=== PATIENT | female | born 1960 | race African-American/Black ===

== ENCOUNTER 2021-05-21 00:28 | Emergency (ER) | payer OTHER, MEDICAID ==
[~2021-05-21] VITALS: Ht 167.6 cm; Wt 89.8 kg
[2021-05-21 05:21] VITALS: BP 146/99
[2021-05-21] MEDS ORDERED: BENZOCAINE (DENTAL) 20 % SPRAY 60ML MT ONE ×2 (05:45→06:15)
[2021-05-21] MEDS ORDERED: HYDROcodone-ACET 5/325MG TAB PO ONE (05:45)
[2021-05-21] MEDS ORDERED: CLINDAMYCIN HCL 150 MG CAP PO ONE (06:00)
== END 2021-05-21 06:40 | disposition home or self-care (01) ==
LOC: EDBD 00:28 → ER 00:30
DX: K04.7 Periapical abscess without sinus (principal); E11.9 Type 2 diabetes mellitus without complications; I10 Essential (primary) hypertension; Z90.49 Acquired absence of other specified parts of digestive tract; Z88.0 Allergy status to penicillin; Z88.2 Allergy status to sulfonamides

== ENCOUNTER 2021-09-30 22:54 | Emergency (ER) | payer OTHER, MEDICAID ==
[~2021-09-30] VITALS: Ht 170.2 cm; Wt 86.2 kg
[2021-09-30 23:59] VITALS: BP 144/97
[2021-10-01] MEDS ORDERED: KETOROLAC TROMETH 30 MG/ML 1ML VIAL IM ONE (00:15)
[2021-10-01] MEDS ORDERED: ACETAMINOPHEN 325 MG TAB PO ONE (00:15)
[2021-10-01] MEDS ORDERED: ACET325T82 PO ×2 (00:48→01:02)
== END 2021-10-01 01:19 | disposition home or self-care (01) ==
LOC: ER 22:54 → EDBD 22:54 → ER 10-01 01:19
DX: S86.911A Strain of unspecified muscle(s) and tendon(s) at lower leg level, right leg, initial encounter (principal); I10 Essential (primary) hypertension; E11.9 Type 2 diabetes mellitus without complications; Z90.49 Acquired absence of other specified parts of digestive tract; Z79.899 Other long term (current) drug therapy; Z88.0 Allergy status to penicillin; Z88.2 Allergy status to sulfonamides; Z88.8 Allergy status to other drugs, medicaments and biological substances; Z91.013 Allergy to seafood; W18.39XA Other fall on same level, initial encounter; Y93.89 Activity, other specified; Y92.89 Other specified places as the place of occurrence of the external cause; Y99.8 Other external cause status
CPT/HCPCS: 73564; 96372; 99283; J1885

== ENCOUNTER 2022-03-15 14:17 | Emergency (ER) | payer OTHER, MEDICAID ==
[~2022-03-15] VITALS: Ht 167.6 cm; Wt 88.0 kg
[~2022-03-15 14:17] MED LIST: ACET325T82 PO
[2022-03-15] MEDS ORDERED: IOHEXOL 300 MG/ML 100ML BOTTLE IJ ONE (16:34)
[2022-03-15 18:19] LABS: Basophils # (auto) 0.1 10 ^3/uL (0-0.2); Monocytes # (auto) 0.5 10 ^3/uL (0-1.3); Nucleated Red Blood Cells % 0.1 %
[2022-03-15 18:21] LABS: Basophils % (auto) 1.6 % (0.0-2.0); Eosinophils # (auto) 0.1 10 ^3/uL (0-0.8); Eosinophils % (auto) 2.7 % (0.0-7.0); Hematocrit 35.8 % (36.0-46.0); Hemoglobin 11.8 g/dL (12.2-16.2); Lymphocytes % (auto) 19.4 % (10.0-50.0); Mean Corpuscular Hemoglobin 25.6 pg (28.0-32.0); Mean Corpuscular Volume 77.3 fL (80.0-100.0); Monocytes % (auto) 10.6 % (0.0-12.0); Neutrophils # (auto) 3.3 10 ^3/uL (1.6-8.6); Neutrophils % (auto) 65.7 % (37.0-80.0); Red Blood Cells 4.63 10^6/uL (4.0-5.20); Red Cell Distribution Width 15.2 % (11.8-14.3)
[2022-03-15 18:28] LABS: Albumin 3.3 g/dL (3.4-5.0); Calcium 8.5 mg/dL (8.5-10.1); Potassium 4.3 mmol/L (3.5-5.1)
[2022-03-15 18:31] LABS: Bilirubin, Total 0.4 mg/dL (0.2-1.0); Total Protein 6.4 g/dL (6.4-8.2)
[2022-03-15 18:39] LABS: Urine Bacteria FEW /hpf (None Seen); Urine Blood Negative /uL (Negative); Urine Specific Gravity 1.018 (1.001-1.035); Urine WBC 11 /hpf (0 - 5)
[2022-03-15] MEDS ORDERED: FLUCONAZOLE 100 MG TAB PO ONE (20:15)
[2022-03-15] MEDS ORDERED: CEPH-322 PO (21:27)
[2022-03-15 21:55] VITALS: BP 165/96
== END 2022-03-16 00:01 | disposition home or self-care (01) ==
LOC: ER 14:17
DX: N39.0 Urinary tract infection, site not specified (principal); B37.9 Candidiasis, unspecified; I10 Essential (primary) hypertension; E11.9 Type 2 diabetes mellitus without complications; J44.9 Chronic obstructive pulmonary disease, unspecified; Z90.49 Acquired absence of other specified parts of digestive tract; Z79.899 Other long term (current) drug therapy; Z88.0 Allergy status to penicillin; Z88.2 Allergy status to sulfonamides; Z88.8 Allergy status to other drugs, medicaments and biological substances
CPT/HCPCS: 36415; 71045; 74176; 80053; 81001; 84484; 85025; 93005

== ENCOUNTER 2022-03-18 22:07 | Emergency (ER) | payer OTHER, MEDICAID ==
[~2022-03-18] VITALS: Ht 167.6 cm; Wt 88.0 kg
[~2022-03-18 22:07] MED LIST changes: +CEPH-322 PO
[2022-03-18 22:16] VITALS: BP 120/97
== END 2022-03-19 03:37 | disposition left against medical advice (07) ==
LOC: ER 22:12
DX: R05.9 Cough, unspecified (principal); R50.9 Fever, unspecified; Z53.21 Procedure and treatment not carried out due to patient leaving prior to being seen by health care provider

== ENCOUNTER 2024-06-30 10:56 | Emergency (ER) | payer OTHER, MEDICAID ==
[~2024-06-30] VITALS: Ht 167.6 cm; Wt 74.5 kg
[~2024-06-30 10:56] MED LIST changes: -CEPH-322 PO; +CEPH250C PO
[2024-06-30] MEDS: IPRATROPIUM BROM 0.5 MG/2.5ML INH SOL NEB ONE (11:17)
[2024-06-30] MEDS: ALBUTEROL SULF 2.5 MG/0.5ML(0.5%) NEB SOLN NEB ONE (11:18)
[2024-06-30] MEDS: methylPREDNISolone SOD SUCC 125 MG/2 ML VL IV ONE (11:57)
[2024-06-30 12:02] LABS: Basophils # (auto) 0 10 ^3/uL (0-0.2); Basophils % (auto) 0.3 % (0.0-2.0); Eosinophils # (auto) 0.1 10 ^3/uL (0-0.8); Eosinophils % (auto) 3.1 % (0.0-7.0); Hematocrit 36.2 % (36.0-46.0); Hemoglobin 11.8 g/dL (12.2-16.2); Lymphocytes # (auto) 1.3 10 ^3/uL (0.4-5.4); Mean Corpuscular Hemoglobin 25.6 pg (28.0-32.0); Mean Corpuscular Hgb Conc. 32.7 g/dL (32.0-36.0); Mean Corpuscular Volume 78.2 fL (80.0-100.0); Monocytes # (auto) 0.2 10 ^3/uL (0-1.3); Monocytes % (auto) 4.9 % (0.0-12.0); Neutrophils # (auto) 2.6 10 ^3/uL (1.6-8.6); Neutrophils % (auto) 60.7 % (37.0-80.0); Platelet Count (auto) 346 10^3/uL (140-450); Red Blood Cells 4.62 10^6/uL (4.0-5.20); Red Cell Distribution Width 16.9 % (11.8-14.3); White Blood Cell 4.3 10^3/uL (4.4-10.8)
[2024-06-30 12:10] VITALS: O2SAT 99
[2024-06-30 12:28] LABS: Alanine Aminotransferase 59 U/L (7-40); Alkaline Phosphatase 109 U/L (46-116); Anion Gap 8 (5-15); Aspartate Aminotransferase 44 U/L (13-40); Bilirubin, Total 0.3 mg/dL (0.2-1.0); Blood Urea Nitrogen 12 mg/dL (9-23); Calcium 9.3 mg/dL (8.7-10.4); Carbon Dioxide 25 mmol/L (20-30); Chloride 108 mmol/L (98-107); Glucose 189 mg/dL (74-106); Potassium 3.2 mmol/L (3.5-5.1); Sodium 141 mmol/L (136-145); Total Protein 6.8 g/dL (5.7-8.2)
[2024-06-30] MEDS ORDERED: AZIT500T PO (15:42)
[2024-06-30] MEDS ORDERED: ALBUAER3 IN (15:42)
[2024-06-30] MEDS ORDERED: METH4PAK PO (15:42)
[2024-06-30] MEDS: AZITHROMYCIN 500MG/ 250ML 250 ML IV ONE (15:45)
[2024-06-30 19:45] VITALS: BP 150/93; PULSE 107; RESP 18; TEMP 98.6; O2SAT 94
== END 2024-06-30 19:56 | disposition home or self-care (01) ==
LOC: ER 10:56 → EDBD 10:56 → ER 19:45
DX: J44.1 Chronic obstructive pulmonary disease with (acute) exacerbation (principal); I11.0 Hypertensive heart disease with heart failure; I50.9 Heart failure, unspecified; I25.2 Old myocardial infarction; Z72.0 Tobacco use; Z98.890 Other specified postprocedural states; Z79.899 Other long term (current) drug therapy; Z88.0 Allergy status to penicillin; Z88.8 Allergy status to other drugs, medicaments and biological substances
CPT/HCPCS: 36415; 71045; 80053; 83880; 84484; 85025; 93005; 94640; 96365; 96366; 96375; 99285; J0456; J2919

== ENCOUNTER 2024-12-01 21:53 | Emergency (ER) | payer MEDICAID, OTHER ==
[~2024-12-01] VITALS: Ht 167.6 cm; Wt 82.0 kg
[~2024-12-01 21:53] MED LIST changes: +ALBUAER3 IN; +AZIT500T PO; +METH4PAK PO
[2024-12-01 22:56] LABS: Basophils # (auto) 0.1 10 ^3/uL (0-0.2); Basophils % (auto) 1.1 % (0.0-2.0); Eosinophils # (auto) 0.1 10 ^3/uL (0-0.8); Eosinophils % (auto) 1.5 % (0.0-7.0); Hematocrit 36.4 % (36.0-46.0); Hemoglobin 11.4 g/dL (12.2-16.2); Lymphocytes # (auto) 1.5 10 ^3/uL (0.4-5.4); Lymphocytes % (auto) 25.6 % (10.0-50.0); Mean Corpuscular Hemoglobin 23.2 pg (28.0-32.0); Mean Corpuscular Hgb Conc. 31.3 g/dL (32.0-36.0); Mean Corpuscular Volume 74.1 fL (80.0-100.0); Monocytes # (auto) 0.5 10 ^3/uL (0-1.3); Monocytes % (auto) 8.3 % (0.0-12.0); Neutrophils # (auto) 3.6 10 ^3/uL (1.6-8.6); Neutrophils % (auto) 63.5 % (37.0-80.0); Nucleated Red Blood Cells % 0.1 %; Platelet Count (auto) 341 10^3/uL (140-450); Red Blood Cells 4.91 10^6/uL (4.0-5.20); Red Cell Distribution Width 17.9 % (11.8-14.3); White Blood Cell 5.7 10^3/uL (4.4-10.8)
[2024-12-01 23:15] LABS: Alanine Aminotransferase 28 U/L (7-40); Albumin 4.4 g/dL (3.2-4.8); Anion Gap 6 (5-15); Aspartate Aminotransferase 31 U/L (13-40); BUN/Creatinine Ratio 10.9 (10.0-20.0); Bilirubin, Total 0.4 mg/dL (0.2-1.0); Blood Urea Nitrogen 10 mg/dL (9-23); Calcium 9.9 mg/dL (8.7-10.4); Carbon Dioxide 27 mmol/L (20-31); Glucose 94 mg/dL (74-106); Lipase 41 U/L (12-53); Potassium 3.9 mmol/L (3.5-5.1); Sodium 141 mmol/L (136-145)
[2024-12-01 23:17] LABS: Alkaline Phosphatase 120 U/L (46-116); Chloride 108 mmol/L (98-107)
--- NOTE | 2024-12-01 23:48 | ED.PDOC ---
History of Present Illness HPI Comments 64 y/o F with history of asthma, COPD, DM, HTN, cholecystectomy, , hernia repair, gastric bypass, and IVC filter brought in by family complaining of right upper quadrant pain radiating to the right shoulder, associated with nausea and constipation. Patient states her last bowel movement was 3 days ago. She denies any vomiting, fever or dysuria, however does note urinary frequency. Chief Complaint: Abdominal Pain Time Seen by MD: 22:25 Primary Care Provider: Justino Reviewed Notes: Nurses Notes, Medications, Allergies Allergies: Coded Allergies: Iodine (Verified Allergy, Unknown, 05/21/21) Metformin (Verified Allergy, Unknown, 05/21/21) Penicillins (Verified Allergy, Unknown, 05/21/21) Sulfa Antibiotics (Verified Allergy, Unknown, 05/21/21) Uncoded Allergies: SEAFOOD (Allergy, Unknown, 05/21/21) Home Meds Active Scripts Magnesium Citrate (MAGNESIUM CITRATE) 100 Mg Tab, 2-4 TAB OR HS PRN, #30 TAB prn constipation Prov:OLINDA READ MD 12/02/24 Ondansetron Odt 4MG Tab (ZOFRAN PO) 4 Mg Tb, 4 MG PO Q8HP PRN, #30 TAB prn n/v ODT TAB-DISSOLVE IN MOUTH, THEN SWALLOW Prov:OLINDA READ MD 12/02/24 Dicyclomine Hcl (BENTYL CAPSULE) 10 Mg Cp, 2 CAP PO Q6HP PRN, #30 CAP 11 Refills prn abdominal pain Prov:OLINDA READ MD 12/02/24 Albuterol Sulfate (VENTOLIN MDI) 90 Mcg Ih, 90 MCG IN Q4HP PRN for 30 Days, #1 INH Prov:MICHEL ADAM MD 06/30/24 Methylprednisolone (Medrol Dosepak) 4 Mg Sathya, 4 MG PO UD, #21 TAB UAD Prov:MICHEL ADAM MD 06/30/24 Azithromycin (Zithromax) 500 Mg Tab, 500 MG PO DAILY for 7 Days, #7 TAB Prov:MICHEL ADAM MD 06/30/24 Cephalexin (KEFLEX CAPSULE) 250 Mg Cp, 250 MG PO TID for 5 Days, #15 TAB Prov:DANE DUMONT MD 03/15/22 Acetaminophen (Apap) 325 Mg Tab, 500 MG PO Q4HP PRN for 10 Days, #60 TAB 0 Refills Prov:LEONARD WRIGHT 10/01/21 Information Source: Patient Mode of Arrival: Wheelchair Severity: Moderate Timing: Hours Duration: Since onset Prehospital treatment: None Past Medical History PAST MEDICAL HISTORY: Asthma, COPD, Depression, DM, HTN Past Medical History (Other): lymphedema to right-leg, bipolar disorder Surgical History: Cholecystectomy, , Hernia Repair Surgical History (Other): gastric bypass, IVC abdomen filter GIS PROGRAMMER History: No Pertinent GIS PROGRAMMER History Family History Family History: Reviewed,noncontributory to illness Social History Smoker: Non-Smoker Alcohol: Denies ETOH Use Drugs: Denies Drug Use Lives In: Homeless All Other Systems: Reviewed and Negative (Comprehensive systems review obtained and negative except for what is stated in the HPI.) Physical Exam General Appearance: Mild Distress HEENT: Other (Pupils and face symmetric, moist mucous membranes) Neck: Full Range of Motion, Normal Inspection Respiratory: Lungs Clear, No Accessory Muscle Use, No Respiratory Distress, Normal Breath Sounds Cardiovascular: No Edema, No JVD, Regular Rate/Rhythm Breast Exam: Deferred Gastrointestinal: Diffuse, RUQ, Tenderness, Other (Abdomen soft, diffuse tenderness, greatest in the right upper quadrant. No rebound or guarding. Negative Barnhart's sign.) Genitalia: Deferred Pelvic: Deferred Rectal: Deferred Extremities: Normal inspection, Normal range of motion, Non-tender, No pedal edema Neurologic: Alert (Oriented x4), Normal Affect, Normal Mood, Other (Ambulatory without difficulty. No gross focal deficit.) Cerebellar Function: NOT DONE Reflexes: NOT DONE Skin: Dry, Normal Color, Warm Lymphatic: NOT DONE Was a procedure done? Was a procedure done?: No Differential Dx Considerations may include: Biliary tract disease, pancreatitis, gastritis, gastroenteritis, constipation, bowel obstruction, colitis, diverticular disease, UTI, kidney stone, viral syndrome, ischemic bowel, among others X-Ray, Labs, Meds, VS Vital Signs Date Time Temp Pulse Resp B/P (MAP) Pulse Ox O2 Delivery O2 Flow Rate FiO2 12/02/24 05:00 92 18 134/88 12/02/24 04:00 70 18 141/103 12/02/24 02:28 98.0 90 18 141/103 (116) 98 98.0 12/02/24 02:28 92 18 99 Room Air* 0 21 12/01/24 22:15 97.9 89 14 167/114 (131) 100 Lab Test 12/02/24 00:00 12/01/24 22:44 Range/Units Troponin I High Sensitivity 5 5 </=34 ng/L White Blood Count 5.7 4.4-10.8 10^3/uL Red Blood Count 4.91 4.0-5.20 10^6/uL Hemoglobin 11.4 L 12.2-16.2 g/dL Hematocrit 36.4 36.0-46.0 % Mean Corpuscular Volume 74.1 L 80.0-100.0 fL Mean Corpuscular Hemoglobin 23.2 L 28.0-32.0 pg Mean Corpuscular Hemoglobin Concent 31.3 L 32.0-36.0 g/dL Red Cell Distribution Width 17.9 H 11.8-14.3 % Platelet Count 341 140-450 10^3/uL Mean Platelet Volume 7.4 6.9-10.8 fL Neutrophils (%) (Auto) 63.5 37.0-80.0 % Lymphocytes (%) (Auto) 25.6 10.0-50.0 % Monocytes (%) (Auto) 8.3 0.0-12.0 % Eosinophils (%) (Auto) 1.5 0.0-7.0 % Basophils (%) (Auto) 1.1 0.0-2.0 % Neutrophils # (Auto) 3.6 1.6-8.6 10 ^3/uL Lymphocytes # (Auto) 1.5 0.4-5.4 10 ^3/uL Monocytes # (Auto) 0.5 0-1.3 10 ^3/uL Eosinophils # (Auto) 0.1 0-0.8 10 ^3/uL Basophils # (Auto) 0.1 0-0.2 10 ^3/uL Nucleated Red Blood Cells 0.1 % Sodium Level 141 136-145 mmol/L Potassium Level 3.9 3.5-5.1 mmol/L Chloride Level 108 H 98-107 mmol/L Carbon Dioxide Level 27 20-31 mmol/L Anion Gap 6 5-15 Blood Urea Nitrogen 10 9-23 mg/dL Creatinine 0.92 0.550-1.02 mg/dL Glomerular Filtration Rate Calc 70 >90 mL/min BUN/Creatinine Ratio 10.9 10.0-20.0 Serum Glucose 94 74-106 mg/dL Lactic Acid Level 0.7 0.4-2.0 mmol/L Calcium Level 9.9 8.7-10.4 mg/dL Total Bilirubin 0.4 0.2-1.0 mg/dL Aspartate Amino Transferase (AST) 31 13-40 U/L Alanine Aminotransferase (ALT) 28 7-40 U/L Alkaline Phosphatase 120 H 46-116 U/L Total Protein 7.0 5.7-8.2 g/dL Albumin 4.4 3.2-4.8 g/dL Lipase 41 12-53 U/L Current Medications Medications (Trade) Dose Ordered Sig/Calista Route Start Time Stop Time Status Last Admin Morphine Sulfate 4 mg ONCE ONCE IV 12/01/24 22:30 12/01/24 22:31 DC 12/02/24 04:00 Ondansetron HCl (Zofran) 4 mg ONCE ONCE IV 12/01/24 22:30 12/01/24 22:31 DC 12/02/24 04:00 Pantoprazole Sodium (Protonix) 40 mg ONCE ONCE IV 12/01/24 22:30 12/01/24 22:31 DC 12/02/24 04:00 [place] [id number] Ph: [phone] DIAGNOSTIC IMAGING Diagnostic Imaging Report : [id number] Signed PATIENT: SEAN KHAN ACCT: [id number] UNIT: [id number] : 1960 LOC: ER ROOM / BED: / AGE / SEX: 64 / F ADM STATUS: REG ER SERVICE 26 ORDERING PHYSICIAN: OLINDA READ MD PROCEDURE(s): ABPL - CT AB PEL WO CON-NO ORAL OR IV REASON: diffuse abd pain greatest in RUQ ORDER NUMBER(s): [id number], ACCESSION NUMBER(s): [id number] Exam: CT CT AB PEL WO CON-NO ORAL OR IV History: diffuse abd pain greatest in RUQ Comparison Study: None available at time of dictation. Technique: Multidetector spiral CT of the abdomen was performed from lung bases to pubic symphysis. Imaging was performed without IV contrast. Axial, coronal and sagittal multiplanar reformats were obtained from the axial data set by the technologist. Radiation Dose : 1. Abdomen/Pelvis: CTDIvol 10.42 mGy, DLP 556.96 mGy*cm. Findings: Evaluation of solid organs is limited due to lack of intravenous contrast use. Lung Bases: No acute or significant lung base finding. Normal heart size. No pleural or pericardial effusion. Liver: The liver is normal in size. No focal lesions. Gallbladder and Biliary Tree: Gallbladder is surgically absent. Spleen: Unremarkable Pancreas: The pancreas is grossly normal in appearance. Adrenal Glands: Unremarkable Kidneys: Kidneys are grossly normal without calculi or hydronephrosis. Bladder: Grossly unremarkable for degree of distention. Bowel: The stomach is grossly normal in appearance. Severe fecal retention throughout the colon. The appendix is not visualized; however, no secondary findings of acute appendicitis identified. Ascites: Absent Lymphadenopathy: No mesenteric, retroperitoneal or periportal lymphadenopathy. Abdominal Wall and Mesentery: Unremarkable. Vasculature: The visualized abdominal aorta is normal in size and caliber. Evaluation of abdominal and pelvic vessels is limited due to lack of intravenous contrast. Infrarenal IVC filter Pelvic Organs: Unremarkable Musculoskeletal: No aggressive focal bony lesions, acute fractures or dislocation. 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 IMPRESSION: Severe fecal retention throughout the colon. Limited noncontrast evaluation. Postsurgical changes of the stomach and small bowel. END IMPRESSION: ATED BY: SIMBA AMARO DO DICTATED DATE/TIME: 12/02/24103 SIGNED BY: SIMBA AMARO DO SIGNED DATE/TIME: 12/02/24103 CC: X-Ray, Labs, Meds, VS Comment 64 y/o F with history of asthma, COPD, DM, HTN, cholecystectomy, , hernia repair, gastric bypass, and IVC filter brought in by family complaining of right upper quadrant pain radiating to the right shoulder, associated with nausea and constipation. Vitals remarkable for BP 167/114 Exam remarkable for diffuse abdominal tenderness, greatest in the right upper quadrant Rhythm strip independently interpreted by me: Sinus rhythm, rate 89, no ectopy. CT abdomen and pelvis IMPRESSION: Severe fecal retention throughout the colon. Limited noncontrast evaluation. Postsurgical changes of the stomach and small bowel. CBC, metabolic panel, 2 serial troponins and lipase unremarkable for any abnormality of acute significance UA ordered but never collected The following treatment was ordered for the patient: Morphine 4 mg IV, Zofran 4 mg IV, Protonix 40 mg IV Call the patient multiple times an attempt to re-evaluate the patient. There was no answer. Workup is essentially unremarkable, so patient would be stable for discharge if symptoms have improved after medication. Patient will be set for discharge. Rx Bentyl, Zofran, magnesium citrate Time of 1ST Reevaluation: 22:55 Reevaluation 1ST: Unchanged Patient Education/Counseling: Diagnosis, Treatment Family Education/Counseling: No Family Present Departure 1 Departure Time of Disposition: 02:32 Impression: Primary Impression: Abdominal pain Qualified Codes: R10.84 - Generalized abdominal pain Additional Impression: Constipation Qualified Codes: K59.00 - Constipation, unspecified Disposition: HOME / SELF CARE / HOMELESS Condition: Stable Additional Instructions: Your blood tests were essentially unremarkable. Your CT scan showed constipation. I have prescribed medication for your symptoms. Follow-up with your primary doctor in 1-2 days. e-Prescriptions Magnesium Citrate (MAGNESIUM CITRATE) 100 Mg Tab 2-4 TAB OR HS PRN, #30 TAB prn constipation Prov: OLINDA READ MD 12/02/24 Ondansetron Odt 4MG Tab (ZOFRAN PO) 4 Mg Tb 4 MG PO Q8HP PRN, #30 TAB prn n/v ODT TAB-DISSOLVE IN MOUTH, THEN SWALLOW Prov: OLINDA READ MD 12/02/24 Dicyclomine Hcl (BENTYL CAPSULE) 10 Mg Cp 2 CAP PO Q6HP PRN, #30 CAP 11 Refills prn abdominal pain Prov: OLINDA READ MD 12/02/24 Discharged With: Relative Critical Care Note Critical Care Time?: No Stability Stability form required: No Heart Score Heart Score: Heart Score Response (Comments) Value History N/A 0 EKG N/A 0 Age N/A 0 Risk Factors N/A 0 Troponin N/A 0 Total 0 I personally scribed for OLINDA READ MD ([email or web address]) on 12/01/24 at 23:48. Electronically submitted by Navarro Eckert ([email or web address]). I personally scribed for OLINDA READ MD ([email or web address]) on 12/02/24 at 01:55. Electronically submitted by Navarro Eckert ([email or web address]). OLINDA READ MD Dec 01, 2024 23:48
--- NOTE | 2024-12-02 01:06 | DVH ---
Exam: CT CT AB PEL WO CON-NO ORAL OR IV History: diffuse abd pain greatest in RUQ Comparison Study: None available at time of dictation. Technique: Multidetector spiral CT of the abdomen was performed from lung bases to pubic symphysis. I maging was performed without IV contrast. Axial, coronal and sagittal multiplanar reformats were obta ined from the axial data set by the technologist. Radiation Dose : 1. Abdomen/Pelvis: CTDIvol 10.42 mGy, DLP 556.96 mGy*cm. Findings: Evaluation of solid organs is limited due to lack of intravenous contrast use. Lung Bases: No acute or significant lung base finding. Normal heart size. No pleural or pericardial effusion. Liver: The liver is normal in size. No focal lesions. Gallbladder and Biliary Tree: Gallbladder is surgically absent. Spleen: Unremarkable Pancreas: The pancreas is grossly normal in appearance. Adrenal Glands: Unremarkable Kidneys: Kidneys are grossly normal without calculi or hydronephrosis. Bladder: Grossly unremarkable for degree of distention. Bowel: The stomach is grossly normal in appearance. Severe fecal retention throughout the colon. The appendix is not visualized; however, no secondary findings of acute appendicitis identified. Ascites: Absent Lymphadenopathy: No mesenteric, retroperitoneal or periportal lymphadenopathy. Abdominal Wall and Mesentery: Unremarkable. Vasculature: The visualized abdominal aorta is normal in size and caliber. Evaluation of abdominal a nd pelvic vessels is limited due to lack of intravenous contrast. Infrarenal IVC filter Pelvic Organs: Unremarkable Musculoskeletal: No aggressive focal bony lesions, acute fractures or dislocation. Grade 2 anterolist hesis at L5-S1 with bilateral pars defects. IMPRESSION: Severe fecal retention throughout the colon. Limited noncontrast evaluation. Postsurgical changes of the stomach and small bowel. END IMPRESSION:
[2024-12-02 02:28] VITALS: PULSE 92; RESP 18; O2SAT 99
[2024-12-02] MEDS ORDERED: ZOFR4T PO (02:36)
[2024-12-02] MEDS ORDERED: MAGN100T6 OR (02:36)
[2024-12-02] MEDS ORDERED: DICY10CA PO (02:36)
[2024-12-02] MEDS: MORPHINE SULFATE 4 MG/ML SYR/VIAL IV ONE (04:00)
[2024-12-02] MEDS: ONDANSETRON HCL 4 MG/2 ML VIAL IV ONE (04:00)
[2024-12-02] MEDS: PANTOPRAZOLE 40 MG/10 ML VIAL INJ IV ONE (04:00)
[2024-12-02 07:35] VITALS: BP 150/104; PULSE 92; RESP 20; TEMP 97.5; O2SAT 98
[2024-12-02] MEDS: cloNIDine HCL 0.1 MG TAB PO ONE (08:28)
== END 2024-12-02 08:58 | disposition home or self-care (01) ==
LOC: ER 21:53
DX: K59.00 Constipation, unspecified (principal); I10 Essential (primary) hypertension; E11.9 Type 2 diabetes mellitus without complications; J44.9 Chronic obstructive pulmonary disease, unspecified; Z90.49 Acquired absence of other specified parts of digestive tract; Z59.00 Homelessness unspecified; Z88.0 Allergy status to penicillin; Z88.2 Allergy status to sulfonamides; Z88.8 Allergy status to other drugs, medicaments and biological substances; Z98.890 Other specified postprocedural states; Z79.899 Other long term (current) drug therapy
CPT/HCPCS: 36415; 74176; 80053; 83605; 83690; 84484; 85025; 96374; 96375; 99285; J2270; J2405; J2470

== ENCOUNTER 2025-02-18 16:52 | Emergency (ER) | payer OTHER, MEDICAID ==
[~2025-02-18] VITALS: Ht 170.2 cm; Wt 81.6 kg
[~2025-02-18 16:52] MED LIST changes: +DICY10CA PO; +MAGN100T6 OR; +ZOFR4T PO
--- NOTE | 2025-02-18 17:14 | ED.PDOC ---
Musculoskeletal HPI Comments 65 y/o F, with PMHx of lymphedema, depression, asthma, COPD, DM, and HTN presents to the ED for CC of s/p fall. Patient reports, she had a mechanical fall yesterday (02/17/25) and has since, been experiencing right hip pain with associated right knee pain. Patient relays, that she has PMHx of lymphedema and has noticed moderate swelling to right extremity following trauma. Patient comments on, limited range of motion with inability to bear weight onto her right leg. Patient denies head injury, cervical injury, nausea, or vomiting. No other symptoms or modifying factors present at this time. Vital signs were stable on arrival Chief Complaint: Lower Extremity Time Seen by MD: 17:00 Primary Care Provider: Justino Reviewed Notes: Nurses Notes, Medications, Allergies Allergies: Coded Allergies: Iodine (Verified Allergy, Unknown, 05/21/21) Metformin (Verified Allergy, Unknown, 05/21/21) Penicillins (Verified Allergy, Unknown, 05/21/21) Sulfa Antibiotics (Verified Allergy, Unknown, 05/21/21) Uncoded Allergies: SEAFOOD (Allergy, Unknown, 05/21/21) Home Meds Active Scripts Magnesium Citrate (MAGNESIUM CITRATE) 100 Mg Tab, 2-4 TAB OR HS PRN, #30 TAB prn constipation Prov:OLINDA READ MD 12/02/24 Ondansetron Odt 4MG Tab (ZOFRAN PO) 4 Mg Tb, 4 MG PO Q8HP PRN, #30 TAB prn n/v ODT TAB-DISSOLVE IN MOUTH, THEN SWALLOW Prov:OLINDA READ MD 12/02/24 Dicyclomine Hcl (BENTYL CAPSULE) 10 Mg Cp, 2 CAP PO Q6HP PRN, #30 CAP 11 Refills prn abdominal pain Prov:OLINDA READ MD 12/02/24 Albuterol Sulfate (VENTOLIN MDI) 90 Mcg Ih, 90 MCG IN Q4HP PRN for 30 Days, #1 INH Prov:MICHEL ADAM MD 06/30/24 Methylprednisolone (Medrol Dosepak) 4 Mg Sathya, 4 MG PO UD, #21 TAB UAD Prov:MICHEL ADAM MD 06/30/24 Azithromycin (Zithromax) 500 Mg Tab, 500 MG PO DAILY for 7 Days, #7 TAB Prov:MICHEL ADAM MD 06/30/24 Cephalexin (KEFLEX CAPSULE) 250 Mg Cp, 250 MG PO TID for 5 Days, #15 TAB Prov:DANE DUMONT MD 03/15/22 Acetaminophen (Apap) 325 Mg Tab, 500 MG PO Q4HP PRN for 10 Days, #60 TAB 0 Refil ls Prov:LEONARD WRIGHT 10/01/21 Information Source: Patient Mode of Arrival: Ambulatory Location: Right Extremity Location: Hip (right), Leg Timing: Hours Prehospital treatment: None Severity: Moderate Able to Move Extremity: Yes Bear Weight: Limited Pain: Moderate Hand Dominance: Right Mechanism: Blunt Trauma Circumstances: Fall Onset of Symptoms: After Trauma Symptoms: Pain Last Tetanus: Unknown Associated signs and symptoms: Knee pain, Leg pain, Hip pain Past Medical History PAST MEDICAL HISTORY: Asthma, COPD, Depression, DM, HTN Past Medical History (Other): Lower extremity lymphedema Surgical History: Cholecystectomy, , Hernia Repair 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 History Family History Family History: Reviewed,noncontributory to illness Social History Smoker: Non-Smoker Alcohol: Denies ETOH Use Drugs: Denies Drug Use Lives In: Homeless Constitutional: denies: chills, diaphoresis, fatigue, fever, malaise, sweats, weakness, others EENTM: denies: blurred vision, double vision, ear bleeding, ear discharge, ear drainage, ear pain, ear ringing, eye pain, eye redness, hearing loss, mouth pain, mouth swelling, nasal discharge, nose bleeding, nose congestion, nose pain, photophobia, tearing, throat pain, throat swelling, voice changes, others Respiratory: denies: cough, hemoptysis, orthopnea, SOB at rest, shortness of breath, SOB with excertion, stridor, wheezing, others Cardiovascular: denies: chest pain, dizzy spells, diaphoresis, Dyspnea on exertion, edema, irregular heart beat, left arm pain, lightheadedness, palpitations, PND, syncope, others Gastrointestinal: denies: abdomen distended, abdominal pain, blood streaked bowels, constipated, diarrhea, dysphagia, difficulty swallowing, hematemesis, melena, nausea, poor appetite, poor fluid intake, rectal bleeding, rectal pain, vomiting, others Genitourinary: denies: abnormal vagina bleeding, burning, dyspareunia, dysuria, flank pain, frequency, hematuria, incontinence, pain, , vagina discharge, urgency, others Neurological: denies: dizziness, fainting, headache, left sided numbness, left sided weakness, numbness, paresthesia, pre-existing deficit, right sided numbness, right sided weakness, seizure, speech problems, tingling, tremors, weakness, others Musculoskeletal: reports: others (right hip pain, right leg pain); denies: back pain, gout, joint pain, joint swelling, muscle pain, muscle stiffness, neck pain Integumetry: denies: bruises, change in color, change in hair/nails, dryness, laceration, lesions, lumps, rash, wounds, others Allergic/Immunocompromised: denies: Difficulty Healing, Frequent Infections, Hives, Itching, others Hematologic/Lymphatic: denies: anemia, blood clots, easy bleeding, easy bruising, swollen glands, others Endocrine: denies: excessive hunger, excessive sweating, excessive thirst, excessive urination, flushing, intolerance to cold, intolerance to heat, unexplained weight gain, unexplained weight loss, others Psychiatric: denies: anxiety, bipolar disorder, depression, hopeless, panic disorder, schizophrenia, sleepless, suicidal, others All Other Systems: Reviewed and Negative Physical Exam General Appearance: Moderate Distress (Due to right hip and right knee pain.), Normal HEENT: Normal ENT Inspection, Pharynx Normal, TMs Normal Neck: Full Range of Motion, Non-Tender, Normal, Normal Inspection Respiratory: Chest Non-Tender, Lungs Clear, No Accessory Muscle Use, No Respiratory Distress, Normal Breath Sounds Cardiovascular: No Edema, No JVD, No Murmur, No Gallop, Normal Peripheral Pulse s, Regular Rate/Rhythm Breast Exam: Deferred Gastrointestinal: No Organomegaly, Non Tender, No Pulsatile Mass, Normal Bowel Sounds, Soft Genitalia: Deferred Pelvic: Deferred Rectal: Deferred Extremities: Other (Patient displays significant right leg lymphedema. Difficult to assess knee due to the edema. Tender to palpation throughout with reduced range of motion. Patient states she has a difficult time bearing weight. Right hip has moderate reduced range of motion. No erythema or ecchymosis noted.) Neurologic: Alert, No Motor Deficits, Normal Affect, Normal Mood, No Sensory Deficits Cerebellar Function: Normal Reflexes: Normal Skin: Dry, Normal Color, Warm Lymphatic: No Adenopathy Was a procedure done? Was a procedure done?: No Differential Diagnosis EXT Differential Diagnosis: Deep Vein Thrombosis, Fracture, Sprain, Dislocation, Contusion X-Ray, Labs, Meds, VS Vital Signs Date Time Temp Pulse Resp B/P (MAP) Pulse Ox O2 Delivery O2 Flow Rate FiO2 02/18/25 18:10 85 18 100 Room Air 02/18/25 18:10 98.2 85 18 136/81 (99) 100 98.2 02/18/25 17:07 97.6 107 18 141/88 (105) 99 97.6 Current Medications Medications (Trade) Dose Ordered Sig/Calista Route Start Time Stop Time Status Last Admin Acetaminophen/ Hydrocodone Bitart ([place] 5/325MG Tab) 1 tab ONCE ONCE PO 02/18/25 17:15 02/18/25 17:16 DC 02/18/25 18:20 [place] [address] Ph: [phone] DIAGNOSTIC IMAGING Diagnostic Imaging Report : [id number] Signed PATIENT: SEAN KHAN DACCT: [id number] UNIT: [id number] : 1960 LOC: ER ROOM / BED: / AGE / SEX: 65 / F ADM STATUS: REG ER SERVICE 170 ORDERING PHYSICIAN: DANE PABLO PAC PROCEDURE(s): RLDVT - RT Lower DVT REASON: DVT rule out ORDER NUMBER(s): [id number], ACCESSION NUMBER(s): [id number] Right lower extremity venous duplex Clinical History: DVT rule out Comparison: None Technique: Duplex Doppler evaluation of the deep venous system of the right lower extremity from the common femoral vein to the popliteal vein including color Doppler and spectral/pulsed waveform analysis was performed. Findings: The common femoral vein demonstrates appropriate compressibility and waveform v ariability. There is compressibility/patency of the great saphenous vein at the proximal thigh. The femoral vein demonstrates appropriate compressibility and waveform variability. The deep femoral vein demonstrates appropriate compressibility and waveform variability. The popliteal vein demonstrates appropriate compressibility and waveform variability. There is normal compressibility at the tibioperoneal trunk. Impression: 1. No right femoropopliteal venous thrombosis. ATED BY: SHAYY CRAWFORD MD DICTATED DATE/TIME: 02/18/251799 SIGNED BY: SHAYY CRAWFORD MD SIGNED DATE/TIME: 02/18/251799 CC: [place] [address] Ph: [phone] DIAGNOSTIC IMAGING Diagnostic Imaging Report : [id number] Signed PATIENT: SEAN KHAN DACCT: [id number] UNIT: [id number] : 1960 LOC: ER ROOM / BED: / AGE / SEX: 65 / F ADM STATUS: REG ER SERVICE 06 ORDERING PHYSICIAN: DANE PABLO PAC PROCEDURE(s): RHIP - R HIP COMPLETE XRAY REASON: Fall/trauma ORDER NUMBER(s): [id number], ACCESSION NUMBER(s): [id number] Indication: Fall/trauma Technique: 3 views pelvis/right hip Comparison: None FINDINGS/IMPRESSION: No radiographic evidence for acute fracture or dislocation. No significant soft tissue edema. No radiopaque foreign body. 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 Fhuw-xm-zvlpjiol degenerate changes left hip. Pelvic calcification/phlebolith measuring 1.4 cm. Hzfs-oe-rmgskilu bilateral sacroiliac degenerative joint disease. ATED BY: ONELIA AVERY MD DICTATED DATE/TIME: 02/18/251751 SIGNED BY: ONLEIA AVERY MD SIGNED DATE/TIME: 02/18/251751 CC: [place] [address] Ph: [phone] DIAGNOSTIC IMAGING Diagnostic Imaging Report : [id number] Signed PATIENT: SEAN KHAN DACCT: [id number] UNIT: [id number] : 1960 LOC: ER ROOM / BED: / AGE / SEX: 65 / F ADM STATUS: REG ER SERVICE 06 ORDERING PHYSICIAN: DANE PABLO PAC PROCEDURE(s): RKN3 - R KNEE 3V XRAY REASON: Fall/trauma ORDER NUMBER(s): [id number], ACCESSION NUMBER(s): [id number] Indication: Fall/trauma Technique: 3 views of the right knee Comparison: R KNEE 4V XRAY on DOS: 10/01/21 FINDINGS/IMPRESSION: No radiographic evidence for acute fracture . Severe degenerative changes of the right knee with ffwj-vi-duzd in the medial and patellofemoral compartments. Extensive subchondral sclerosis, osteophytosis. Large suprapatellar effusion. ATED BY: ONELIA AVERY MD DICTATED DATE/TIME: 02/18/251752 SIGNED BY: ONELIA AVERY MD SIGNED DATE/TIME: 02/18/251752 CC: X-Ray, Labs, Meds, VS Comment All studies performed the ED were evaluated by me personally. DVT study was performed and Doppler was unremarkable for any DVT formation. Right hip showed degenerative changes without any acute fractures. Right knee shows some significant knee effusion due to the contusion without fracture. Patient will be provided with crutches and advised to utilize pain medication as needed. Patient should follow up with the primary care provider for discussions related to today's injuries as well as continued management of significant lymphedema concerns. Time of 1ST Reevaluation: 18:28 Reevaluation 1ST: Improved Consultation: PCP Patient Education/Counseling: Diagnosis, Treatment Family Education/Counseling: Diagnosis, Treatment, No Family Present Departure 1 Departure Time of Disposition: 18:28 Impression: Primary Impression: Contusion of right knee Additional Impressions: Contusion of right hip Lymphedema Disposition: HOME / SELF CARE / HOMELESS Condition: Stable Additional Instructions: Advised patient utilize pain medication as needed for symptomatic relief in additionally, patient should follow up with the primary care provider for discussions related to today's visit as well as management of significant lymphedema concerns. e-Prescriptions Hydrocodone-Acetaminophen (Hydrocodone Bitartrate/AC 5-325 mg) 1 Tab Tab 1 TAB PO Q6HP PRN, #20 TAB Prov: DANE PABLO Yareli PAC 02/18/25 Discharged With: Self, Friend Critical Care Note Critical Care Time?: No Stability Stability form required: No Heart Score Heart Score: Heart Score Response (Comments) Value History N/A 0 EKG N/A 0 Age N/A 0 Risk Factors N/A 0 Troponin N/A 0 Total 0 I personally scribed for SAMY,DANE B PAC ([email or web address]) on 02/18/25 at 17:14. Electronically submitted by Varsha Payne ([email or web address]). I personally scribed for SAMY,DANE B PAC ([email or web address]) on 02/18/25 at 18:04. Electronically submitted by Varsha Payne ([email or web address]). I personally scribed for SAMY,DANE B PAC ([email or web address]) on 02/18/25 at 18:05. Electronically submitted by Varsha Payne ([email or web address]). I personally scribed for SAMY,DANE B PAC ([email or web address]) on 02/18/25 at 18:06. Electronically submitted by Varsha Payne ([email or web address]). SAMY,DANE B PAC February 18, 2025 17:14
--- NOTE | 2025-02-18 17:55 | DVH ---
Indication: Fall/trauma Technique: 3 views pelvis/right hip Comparison: None FINDINGS/IMPRESSION: No radiographic evidence for acute fracture or dislocation. No significant soft tissue edema. No radi opaque foreign body. 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 Sysr-cm-ryyhittu degenerate changes left hip. Pelvic calcification/phlebolith measuring 1.4 cm. Mwpp-sa-erzrftiy bilateral sacroiliac degenerative joint disease.
--- NOTE | 2025-02-18 17:56 | DVH ---
Indication: Fall/trauma Technique: 3 views of the right knee Comparison: R KNEE 4V XRAY on DOS: 10/01/21 FINDINGS/IMPRESSION: No radiographic evidence for acute fracture . Severe degenerative changes of the right knee with bon e-on-bone in the medial and patellofemoral compartments. Extensive subchondral sclerosis, osteophytos is. Large suprapatellar effusion.
--- NOTE | 2025-02-18 18:02 | DVH ---
Right lower extremity venous duplex Clinical History: DVT rule out Comparison: None Technique: Duplex Doppler evaluation of the deep venous system of the right lower extremity from the common femo ral vein to the popliteal vein including color Doppler and spectral/pulsed waveform analysis was perf ormed. Findings: The common femoral vein demonstrates appropriate compressibility and waveform variability. There is compressibility/patency of the great saphenous vein at the proximal thigh. The femoral vein demonstrates appropriate compressibility and waveform variability. The deep femoral vein demonstrates appropriate compressibility and waveform variability. The popliteal vein demonstrates appropriate compressibility and waveform variability. There is normal compressibility at the tibioperoneal trunk. Impression: 1. No right femoropopliteal venous thrombosis.
[2025-02-18 18:10] VITALS: BP 136/81; PULSE 85; RESP 18; TEMP 98.2; O2SAT 100
[2025-02-18] MEDS: HYDROcodone-ACET 5/325MG TAB PO ONE (18:20)
[2025-02-18] MEDS ORDERED: HYDR-4902 PO (18:30)
== END 2025-02-18 18:59 | disposition home or self-care (01) ==
LOC: ER 16:54
DX: S70.01XA Contusion of right hip, initial encounter (principal); S80.01XA Contusion of right knee, initial encounter; I89.0 Lymphedema, not elsewhere classified; I10 Essential (primary) hypertension; E11.9 Type 2 diabetes mellitus without complications; J44.89 Other specified chronic obstructive pulmonary disease; M17.11 Unilateral primary osteoarthritis, right knee; Z90.49 Acquired absence of other specified parts of digestive tract; Z91.041 Radiographic dye allergy status; Z98.890 Other specified postprocedural states; Z88.0 Allergy status to penicillin; Z88.2 Allergy status to sulfonamides; Z88.8 Allergy status to other drugs, medicaments and biological substances
CPT/HCPCS: 73502; 73562; 93971

== ENCOUNTER 2025-05-09 18:11 | Emergency (ER) | payer OTHER, MEDICAID ==
[~2025-05-09] VITALS: Ht 167.6 cm; Wt 83.0 kg
[~2025-05-09 18:11] MED LIST changes: +HYDR-4902 PO
--- NOTE | 2025-05-09 18:41 | ED.PDOC ---
HPI (NEURO) HPI Comments 65y F who presents to the ED for chief complaint of multiple complaints. Pt states she has been having bilateral finger tip numbness, R armpit pain, and right inner thigh cramping pain for the past 2x weeks. Pt states she has noted history of lymphedema. Pt in the ED otherwise denies any other complaints. Pt had R leg US scan that was negative for clot on 02/18/25. Pt also had CT abdomen on 12/08 which was negative. Pt otherwise denies any other symptoms at this time. 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 History Family History Family History: Reviewed,noncontributory to illness Social History Smoker: Non-Smoker Alcohol: Denies ETOH Use Drugs: Denies Drug Use Lives In: Homeless Constitutional: denies: chills, diaphoresis, fatigue, fever, malaise, sweats, weakness, others EENTM: denies: blurred vision, double vision, ear bleeding, ear discharge, ear drainage, ear pain, ear ringing, eye pain, eye redness, hearing loss, mouth pain, mouth swelling, nasal discharge, nose bleeding, nose congestion, nose pain, photophobia, tearing, throat pain, throat swelling, voice changes, others Respiratory: denies: cough, hemoptysis, orthopnea, SOB at rest, shortness of breath, SOB with excertion, stridor, wheezing, others Cardiovascular: denies: chest pain, dizzy spells, diaphoresis, Dyspnea on exertion, edema, irregular heart beat, left arm pain, lightheadedness, palpitations, PND, syncope, others Gastrointestinal: denies: abdomen distended, abdominal pain, blood streaked bowels, constipated, diarrhea, dysphagia, difficulty swallowing, hematemesis, melena, nausea, poor appetite, poor fluid intake, rectal bleeding, rectal pain, vomiting, others Genitourinary: denies: abnormal vagina bleeding, burning, dyspareunia, dysuria, flank pain, frequency, hematuria, incontinence, pain, , vagina discharge, urgency, others Neurological: denies: dizziness, fainting, headache, left sided numbness, left sided weakness, numbness, paresthesia, pre-existing deficit, right sided numbness, right sided weakness, seizure, speech problems, tingling, tremors, weakness, others Musculoskeletal: reports: others; denies: back pain, gout, joint pain, joint swelling, muscle pain, muscle stiffness, neck pain Integumetry: denies: bruises, change in color, change in hair/nails, dryness, laceration, lesions, lumps, rash, wounds, others Allergic/Immunocompromised: denies: Difficulty Healing, Frequent Infections, Hives, Itching, others Hematologic/Lymphatic: denies: anemia, blood clots, easy bleeding, easy bruising, swollen glands, others Endocrine: denies: excessive hunger, excessive sweating, excessive thirst, excessive urination, flushing, intolerance to cold, intolerance to heat, unexplained weight gain, unexplained weight loss, others Psychiatric: denies: anxiety, bipolar disorder, depression, hopeless, panic disorder, schizophrenia, sleepless, suicidal, others All Other Systems: Reviewed and Negative (see Hpi) Physical Exam General Appearance: Other (3+ biltateral pedal pulses from lymphedema ) HEENT: Normal ENT Inspection, Pharynx Normal, TMs Normal Neck: Full Range of Motion, Non-Tender, Normal, Normal Inspection Respiratory: Chest Non-Tender, Lungs Clear, No Accessory Muscle Use, No Respiratory Distress, Normal Breath Sounds Cardiovascular: No Edema, No JVD, No Murmur, No Gallop, Normal Peripheral Pulses, Regular Rate/Rhythm Breast Exam: Deferred Gastrointestinal: No Organomegaly, Non Tender, No Pulsatile Mass, Normal Bowel Sounds, Soft Genitalia: Deferred Pelvic: Other (R thigh tenderness) Rectal: Deferred Extremities: None (bilateral 3+ pedal edema. no calf tenderness. left inner thigh with point tenderness, no mass), Other (good radial pulse, finger tips and good axillary pulses.) Musculoskeletal : Apperance: Normal Neurologic: Alert, member certification manager II-XII nml as Tested, No Motor Deficits, Normal Affect, Normal Mood, No Sensory Deficits Cerebellar Function: Normal Reflexes: Normal Skin: Dry, Normal Color, Warm Lymphatic: No Adenopathy EKG EKG : Pulse Rate (adult): 65 [place]: Normal Cardiac Rhythm: NSR Block: None Hypertrophy: None ST: Normal Was a procedure done? Was a procedure done?: No Differential Diagnosis (SZ) Seizure: Hyperventilation, Hypocalcemia General Weakness: Anemia, Dehydration, Electrolyte imbalance, Other (lymphedema, diabetic neuropathy) X-Ray, Labs, Meds, VS Vital Signs Date Time Temp Pulse Resp B/P (MAP) Pulse Ox O2 Delivery O2 Flow Rate FiO2 05/09/25 19:04 180/105 05/09/25 18:42 191/92 (125) 05/09/25 18:41 98.0 80 16 221/109 (146) 100 98.0 05/09/25 18:34 65 05/09/25 18:31 98.0 80 16 191/92 (125) 100 98.0 Lab Test 05/09/25 18:41 05/09/25 18:30 05/09/25 18:29 Range/Units White Blood Count 5.1 4.4-10.8 10^3/uL Red Blood Count 4.41 4.0-5.20 10^6/uL Hemoglobin 10.8 L 12.2-16.2 g/dL Hematocrit 32.9 L 36.0-46.0 % Mean Corpuscular Volume 74.6 L 80.0-100.0 fL Mean Corpuscular Hemoglobin 24.5 L 28.0-32.0 pg Mean Corpuscular Hemoglobin Concent 32.8 32.0-36.0 g/dL Red Cell Distribution Width 18.2 H 11.8-14.3 % Platelet Count 360 140-450 10^3/uL Mean Platelet Volume 7.4 6.9-10.8 fL Neutrophils (%) (Auto) 63.8 37.0-80.0 % Lymphocytes (%) (Auto) 27.3 10.0-50.0 % Monocytes (%) (Auto) 7.2 0.0-12.0 % Eosinophils (%) (Auto) 1.1 0.0-7.0 % Basophils (%) (Auto) 0.6 0.0-2.0 % Neutrophils # (Auto) 3.2 1.6-8.6 10 ^3/uL Lymphocytes # (Auto) 1.4 0.4-5.4 10 ^3/uL Monocytes # (Auto) 0.4 0-1.3 10 ^3/uL Eosinophils # (Auto) 0.1 0-0.8 10 ^3/uL Basophils # (Auto) 0 0-0.2 10 ^3/uL Nucleated Red Blood Cells 0.1 % Sodium Level 142 136-145 mmol/L Potassium Level 3.4 L 3.5-5.1 mmol/L Chloride Level 108 H 98-107 mmol/L Carbon Dioxide Level 28 20-31 mmol/L Anion Gap 6 5-15 Blood Urea Nitrogen 10 9-23 mg/dL Creatinine 1.00 0.550-1.02 mg/dL Glomerular Filtration Rate Calc 63 >90 mL/min BUN/Creatinine Ratio 10.0 10.0-20.0 Serum Glucose 115 H 74-106 mg/dL Calcium Level 8.8 8.7-10.4 mg/dL Urine Color Light-yellow Yellow Urine Clarity Clear Clear Urine pH 6.0 5.0-9.0 Urine Specific [place] 1.016 1.001-1.035 Urine Protein Negative Negative Urine Ketones Negative Negative Urine Blood Negative Negative /uL Urine Nitrite Negative Negative Urine Bilirubin Negative Negative Urine Urobilinogen 2 H Negative mg/dL Urine Leukocyte Esterase Negative Negative /uL Urine RBC 2 0 - 4 /hpf Urine Microscopic WBC 2 0-5 /HPF Urine Squamous Epithelial Cells Few <5 /hpf Urine Calcium Oxalate Crystals Few None Seen Urine Bacteria None seen None Seen /hpf Urine Glucose Normal Normal mg/dL POC Glucose 165 H 70-106 mg/dl Current Medications Medications (Trade) Dose Ordered Sig/Calista Route Start Time Stop Time Status Last Admin Clonidine HCl (Catapres Tablet) 0.1 mg ONCE ONCE PO 05/09/25 18:45 05/09/25 18:46 DC 05/09/25 19:[address] [address] Ph: [phone] DIAGNOSTIC IMAGING Diagnostic Imaging Report : [id number] Signed PATIENT: SEAN KHAN DACCT: [id number] UNIT: [id number] : 1960 LOC: ER ROOM / BED: / AGE / SEX: 65 / F ADM STATUS: REG ER SERVICE 1899 ORDERING PHYSICIAN: INGE CROWDER MD PROCEDURE(s): CXRP - CHEST PORTABLE REASON: right axillary pain ORDER NUMBER(s): [id number], ACCESSION NUMBER(s): [id number] CHEST RADIOGRAPH Indication: right axillary pain Technique: Single frontal view of the chest was obtained Comparison: XY CHEST PORTABLE on DOS: 06/30/24, CHEST XRAY 1 VIEW on DOS: 03/15/22, CXR1 on DOS: 03/15/22 FINDINGS: Lines and Tubes: None Lungs: No focal consolidation. Pleura: No effusion. No pneumothorax. Cardiomediastinal contours: Unremarkable Bones: No acute osseous abnormality. IMPRESSION: No acute cardiopulmonary disease. ATED BY: CHARO CHAVES DO DICTATED DATE/TIME: 05/09/251911 SIGNED BY: CHARO CHAVES DO SIGNED DATE/TIME: 05/09/251911 CC: Time of 1ST Reevaluation: 19:46 Reevaluation 1ST: Unchanged Patient Education/Counseling: Diagnosis, Treatment, Prognosis, Need For Follow Up Family Education/Counseling: No Family Present Comments pt does not have signs of PAD, she had been evaluated for the same symptoms and DVT was ruled out in the past. the tingling of the fingertips is consistent with hyperventilation. her Calcium is normal. her left axilla has mild point tenderness, but has normal ROm and no swelling, no bruising. ekg is normal as well. she is stable to follow up with her PCP Departure 1 Departure Time of Disposition: 19:48 Impression: Primary Impression: Paresthesia Additional Impression: Muscle cramps Disposition: 01 HOME / SELF CARE / HOMELESS Condition: Good Discharged With: Self Critical Care Note Critical Care Time?: No Stability Stability form required: No Heart Score Heart Score: Heart Score Response (Comments) Value History N/A 0 EKG N/A 0 Age N/A 0 Risk Factors N/A 0 Troponin N/A 0 Total 0 I personally scribed for INGE CROWDER MD ([facility]) on 05/09/25 at 18:41. Electronically submitted by Virginia Davidson ([email or web address]). I personally scribed for INGE CROWDER MD ([facility]) on 7/27/25 at 19:32. Electronically submitted by Virginia Davidson ([email or web address]). INGE CROWDER MD May 09, 2025 18:41
[2025-05-09 18:58] LABS: Hemoglobin 10.8 g/dL (12.2-16.2)
[2025-05-09 19:00] LABS: Hematocrit 32.9 % (36.0-46.0); Mean Corpuscular Hemoglobin 24.5 pg (28.0-32.0); Mean Corpuscular Volume 74.6 fL (80.0-100.0); Nucleated Red Blood Cells % 0.1 %
[2025-05-09 19:04] LABS: Sodium 142 mmol/L (136-145)
[2025-05-09 19:05] LABS: Anion Gap 6 (5-15); Carbon Dioxide 28 mmol/L (20-31)
[2025-05-09 19:06] LABS: Calcium 8.8 mg/dL (8.7-10.4)
[2025-05-09 19:10] LABS: BUN/Creatinine Ratio 10.0 (10.0-20.0); Blood Urea Nitrogen 10 mg/dL (9-23)
--- NOTE | 2025-05-09 19:14 | DVH ---
CHEST RADIOGRAPH Indication: right axillary pain Technique: Single frontal view of the chest was obtained Comparison: XY CHEST PORTABLE on DOS: 06/30/24, CHEST XRAY 1 VIEW on DOS: 03/15/22, CXR1 on DOS: 03/15/22 FINDINGS: Lines and Tubes: None Lungs: No focal consolidation. Pleura: No effusion. No pneumothorax. Cardiomediastinal contours: Unremarkable Bones: No acute osseous abnormality. IMPRESSION: No acute cardiopulmonary disease.
[2025-05-09 19:18] LABS: Chloride 108 mmol/L (98-107); Glucose 115 mg/dL (74-106); Potassium 3.4 mmol/L (3.5-5.1)
[2025-05-09 19:34] LABS: Urine Protein, UAD Negative (Negative)
[2025-05-09 19:58] VITALS: BP 192/100; PULSE 88; RESP 18; TEMP 98; O2SAT 98
--- NOTE | 2025-05-13 06:27 | ECG ---
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
== END 2025-05-09 20:17 | disposition home or self-care (01) ==
LOC: ER 18:11
DX: R20.2 Paresthesia of skin (principal); R25.2 Cramp and spasm; J45.909 Unspecified asthma, uncomplicated; J44.89 Other specified chronic obstructive pulmonary disease; F32.A Depression, unspecified; E11.9 Type 2 diabetes mellitus without complications; I10 Essential (primary) hypertension; Z98.890 Other specified postprocedural states; Z90.49 Acquired absence of other specified parts of digestive tract; Z59.00 Homelessness unspecified
CPT/HCPCS: 36415; 71045; 80048; 81001; 82947; 82962; 85025; 93005

== ENCOUNTER 2025-07-02 02:19 | Inpatient (IN) | payer OTHER, MEDICAID ==
[2025-07-02] VITALS (9 sets, daily range): BP systolic 127–148; BP diastolic 86–98; PULSE 53–84; RESP 10–20; TEMP 97.7–98; O2SAT 94–100
[~2025-07-02] VITALS: Ht 167.6 cm; Wt 83.9 kg
--- NOTE | 2025-07-02 02:47 | ED.PDOC ---
GI ASSESSMENT HPI Comments 65-year-old female who came to ER due to the abdominal pain. Have history of hypertension, diabetes, asthma, COPD, lymphedema and DVT. For the past 4 days she has been experiencing abdominal pain, back pain with nausea and vomiting. Noted worsening bilateral lower extremity swelling, with shortness a breath and dizziness. Denies any urinary symptoms REVIEW OF SYSTEMS: General: No fever, no chills, or fatigue HEENT: No sore throat, no earache, no congestion, no neck pain. Cardiac: No chest pain. No palpitations. Lungs: (+) shortness of breath, no cough. GI: (+) nausea, (+) vomiting, no diarrhea, no constipation, (+) abdominal pain : No dysuria, frequency, or urgency. No hematuria. Musculoskeletal: No joint pain , no joint swelling, no extremity edema. (+) back pain Skin: No rash, no itching. Neuro: No headache, no dizziness, no weakness EXAM: General: Awake, alert and oriented. No acute distress. Skin: Skin in warm, dry and intact. Appropriate color for ethnicity. HEENT: The head is normocephalic and atraumatic. Conjunctivae are clear without exudates or hemorrhage. Sclera is non-icteric. EOM are intact. No signs of nystagmus. Eyelids are normal in appearance without swelling or lesions. Oral mucosa is pink and moist Neck: The neck is supple with normal range of motion. No JVD. Cardiac: Heart rate and rhythm are normal. No murmurs, gallops, or rubs are auscultated. Respiratory: No signs of respiratory distress. Lung sounds are clear in all lobes bilaterally without rales, rhonchi, or wheezes. Abdominal: Abdomen is soft, GENERALLY-tender without distention. Bowel sounds are present and normoactive in all four quadrants. Extremities: BILATERAL 3 +PITTING EDEMA RIGHT GREATER THAN LEFT Neurological: The patient is awake, alert and oriented to person, place, and time with normal speech. Speech is clear. There is no facial asymmetry. Chief Complaint: Abdominal Pain Time Seen by MD: 02:47 Primary Care Provider: DESMOND Reviewed Notes: Nurses Notes Allergies: Coded Allergies: Iodine (Verified Allergy, Unknown, 05/21/21) Metformin (Verified Allergy, Unknown, 05/21/21) Penicillins (Verified Allergy, Unknown, 05/21/21) Sulfa Antibiotics (Verified Allergy, Unknown, 05/21/21) Uncoded Allergies: SEAFOOD (Allergy, Unknown, 05/21/21) Home Meds Active Scripts Hydrocodone-Acetaminophen (Hydrocodone Bitartrate/AC 5-325 mg) 1 Tab Tab, 1 TAB PO Q6HP PRN, #20 TAB Prov:DANE PABLO PAC 02/18/25 Magnesium Citrate (MAGNESIUM CITRATE) 100 Mg Tab, 2-4 TAB OR HS PRN, #30 TAB prn constipation Prov:OLINDA READ MD 12/02/24 Ondansetron Odt 4MG Tab (ZOFRAN PO) 4 Mg Tb, 4 MG PO Q8HP PRN, #30 TAB prn n/v ODT TAB-DISSOLVE IN MOUTH, THEN SWALLOW Prov:OLINDA READ MD 12/02/24 Dicyclomine Hcl (BENTYL CAPSULE) 10 Mg Cp, 2 CAP PO Q6HP PRN, #30 CAP 11 Refills prn abdominal pain Prov:OLINDA READ MD 12/02/24 Albuterol Sulfate (VENTOLIN MDI) 90 Mcg Ih, 90 MCG IN Q4HP PRN for 30 Days, #1 INH Prov:MICHEL ADAM MD 06/30/24 Methylprednisolone (Medrol Dosepak) 4 Mg Sathya, 4 MG PO UD, #21 TAB UAD Prov:MICHEL ADAM MD 06/30/24 Azithromycin (Zithromax) 500 Mg Tab, 500 MG PO DAILY for 7 Days, #7 TAB Prov:MICHEL ADAM MD 06/30/24 Cephalexin (KEFLEX CAPSULE) 250 Mg Cp, 250 MG PO TID for 5 Days, #15 TAB Prov:DANE DUMONT MD 03/15/22 Acetaminophen (Apap) 325 Mg Tab, 500 MG PO Q4HP PRN for 10 Days, #60 TAB 0 Refills Prov:LEONARD WRIGHT 10/01/21 Information Source: Patient Mode of Arrival: Ambulatory Past Medical History PAST MEDICAL HISTORY: Asthma, COPD, Depression, DM, HTN Past Medical History (Other): Lymphedema, DVT Surgical History: Cholecystectomy, , Hernia Repair Surgical History (Other): Gastric bypass, IVC filter 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 Was a procedure done?: No GI differential Dx Differential Diagnosis: Cholecystitis, Constipation, Diverticular disease, Gastritis/PUD, Gastroenteritis, Pancreatitis, UTI, Urolithiasis X-Ray, Labs, Meds, VS Vital Signs Date Time Temp Pulse Resp B/P (MAP) Pulse Ox O2 Delivery O2 Flow Rate FiO2 07/02/25 05:35 98.0 82 20 148/98 (115) 99 98.0 07/02/25 05:34 148/98 07/02/25 04:30 98.2 74 16 155/94 (114) 100 98.2 07/02/25 02:21 89 20 07/02/25 02:21 98.6 85 18 179/106 100 98.6 Lab Test 07/02/25 04:06 07/02/25 03:37 07/02/25 03:00 Range/Units Troponin I High Sensitivity 6 7 </=34 ng/L Urine Color Yellow Yellow Urine Clarity Clear Clear Urine pH 6.0 5.0-9.0 Urine Specific [place] 1.020 1.001-1.035 Urine Protein Trace H Negative Urine Ketones Negative Negative Urine Blood Negative Negative /uL Urine Nitrite Negative Negative Urine Bilirubin Negative Negative Urine Urobilinogen 4 H Negative mg/dL Urine Leukocyte Esterase Trace Negative /uL Urine RBC None seen 0 - 4 /hpf Urine Microscopic WBC 1 0-5 /HPF Urine Squamous Epithelial Cells Few <5 /hpf Urine Bacteria None seen None Seen /hpf Urine Glucose Normal Normal mg/dL White Blood Count 6.3 4.4-10.8 10^3/uL Red Blood Count 4.47 4.0-5.20 10^6/uL Hemoglobin 11.0 L 12.2-16.2 g/dL Hematocrit 33.4 L 36.0-46.0 % Mean Corpuscular Volume 74.8 L 80.0-100.0 fL Mean Corpuscular Hemoglobin 24.7 L 28.0-32.0 pg Mean Corpuscular Hemoglobin Concent 33.1 32.0-36.0 g/dL Red Cell Distribution Width 17.2 H 11.8-14.3 % Platelet Count 358 140-450 10^3/uL Mean Platelet Volume 7.3 6.9-10.8 fL Neutrophils (%) (Auto) 62.7 37.0-80.0 % Lymphocytes (%) (Auto) 26.6 10.0-50.0 % Monocytes (%) (Auto) 8.1 0.0-12.0 % Eosinophils (%) (Auto) 2.0 0.0-7.0 % Basophils (%) (Auto) 0.6 0.0-2.0 % Neutrophils # (Auto) 4.0 1.6-8.6 10 ^3/uL Lymphocytes # (Auto) 1.7 0.4-5.4 10 ^3/uL Monocytes # (Auto) 0.5 0-1.3 10 ^3/uL Eosinophils # (Auto) 0.1 0-0.8 10 ^3/uL Basophils # (Auto) 0 0-0.2 10 ^3/uL Nucleated Red Blood Cells 0.1 % Sodium Level 143 136-145 mmol/L Potassium Level 3.5 3.5-5.1 mmol/L Chloride Level 108 H 98-107 mmol/L Carbon Dioxide Level 26 20-31 mmol/L Anion Gap 9 5-15 Blood Urea Nitrogen 9 9-23 mg/dL Creatinine 0.93 0.550-1.02 mg/dL Glomerular Filtration Rate Calc 68 >90 mL/min BUN/Creatinine Ratio 9.7 L 10.0-20.0 Serum Glucose 95 74-106 mg/dL Hemoglobin A1c 5.6 <5.7 % A1C Lactic Acid Level 0.7 0.4-2.0 mmol/L Calcium Level 9.1 8.7-10.4 mg/dL Total Bilirubin 0.4 0.2-1.0 mg/dL Aspartate Amino Transferase (AST) 24 13-40 U/L Alanine Aminotransferase (ALT) 12 7-40 U/L Alkaline Phosphatase 110 46-116 U/L B-Type Natriuretic Peptide 58.01 0-100 pg/mL Total Protein 6.8 5.7-8.2 g/dL Albumin 4.0 3.2-4.8 g/dL Lipase 36 12-53 U/L Vitamin D 25-Hydroxy 29.4 L 30.0-100 ng/mL Current Medications Medications (Trade) Dose Ordered Sig/Calista Route Start Time Stop Time Status Last Admin Tramadol HCl (Ultram) 50 mg ONCE ONCE PO 9/19/25 02:45 07/02/25 02:46 DC 07/02/25 03:08 Acetaminophen (Tylenol Tablet) 650 mg ONCE ONCE PO 07/02/25 02:45 07/02/25 02:46 DC 07/02/25 03:08 Ondansetron HCl (Zofran Po) 4 mg ONCE ONCE PO 07/02/25 02:45 07/02/25 02:47 DC 07/02/25 03:09 Furosemide (Lasix Injection) 20 mg ONCE ONCE IV 07/02/25 04:30 07/02/25 04:31 DC 07/02/25 05:34 Exam: CT CT AB PEL WO CON-NO ORAL OR IV History: Abdominal pain, nausea, vomiting Comparison Study: CT CT AB PEL WO CON-NO ORAL OR IV on DOS: 12/01/24, CT ABDOMEN PELVIS WITHOUT on DOS: 01/16/23, CT ABD PELVIS WO CONTRAST on DOS: 03/15/22 Technique: Multidetector spiral CT of the abdomen was performed from lung bases to pubic symphysis. Imaging was performed without IV contrast. Axial, coronal and sagittal multiplanar reformats were obtained from the axial data set by the technologist. Radiation Dose : 1. Abdomen/Pelvis: CTDIvol 9.23 mGy, DLP 549.56 mGy*cm. Findings: Evaluation of solid organs is limited due to lack of intravenous contrast use. Exam is further limited by lack of peritoneal fat. Lower Chest: No acute findings. Liver: Unremarkable. Gallbladder and Biliary Tree: Cholecystectomy change. Pancreas: Not well assessed. Spleen: Unremarkable. Adrenal Glands: Unremarkable. Kidneys/Ureters: No urinary stone or obstruction. Bladder: Grossly unremarkable for degree of distention. Pelvic Organs: Unremarkable Bowel: No evidence of wall thickening or obstruction. Redemonstrated bariatric postsurgical change of the stomach, and anastomotic sutures of the small bowel in the left lower quadrant.. The appendix is not visualized. Vasculature: Infrarenal IVC filter. Mild atherosclerosis. Lymphadenopathy: No obvious adenopathy. Peritoneum: No ascites, free air, or fluid collection. Abdominal Wall: Mild anasarca redemonstrated. Musculoskeletal: No acute findings. Degenerative change of the spine and pelvis. L5 spondylolysis with L5-S1 spondylolisthesis. IMPRESSION: 1. Limited exam. No acute abdominopelvic abnormality, evidence of urinary stone or obstruction. 2. Chronic and incidental findings without significant interval change as above. Radiation optimization: All CT scans at this facility use at least one of these dose optimization techniques: automated exposure control mA and/or kV adjustmen t per patient size (includes targeted exams where dose is matched to clinical indication) or iterative reconstruction. T RADIOGRAPH Indication: Chest pain, shortness of breath Technique: Single frontal view of the chest was obtained COMPARISON: XY CHEST PORTABLE on DOS: 05/09/25, XR CHEST 1 VIEW on DOS: 07/16/24, XY CHEST PORTABLE on DOS: 06/30/24, XR CHEST 1 VIEW on DOS: 09/05/23, XR CHEST 1 VIEW on DOS: 01/12/23 FINDINGS: Lines and Tubes: None Lungs: Clear Pleura: No effusion. No pneumothorax. Cardiomediastinal contours: Unremarkable Bones: Unremarkable IMPRESSION: 1. No acute disease. Time of 1ST Reevaluation: 02:44 Reevaluation 1ST: Unchanged Patient Education/Counseling: Need For Follow Up Family Education/Counseling: Need For Follow Up SEPSIS Sepsis Screen Date sepsis recognized/suspect: Jul 02, 2025 Time Sepsis recognized/suspect: 220 Recent Procedure: No On Antibiotic Therapy: No Respiratory Rate >20: No Heart Rate >90: No Temp<36 C (96.8 F) or >38.3 C: No SBP <90 or MAP <65 mmHG: No New Acute Mental Status Change: No Is the patient on CPAP, BIPAP,: No Physician Orders Electrocardigram (07/02/25 02:43) Chest Xray 1 View (07/02/25 02:43) Ct Ab Pel Wo Con-No Oral Or Iv (07/02/25 02:43) Electrocardigram (07/02/25 03:43) Electrocardigram (07/02/25 05:43) Vital Signs Date Time Temp Pulse Resp B/P (MAP) Pulse Ox O2 Delivery O2 Flow Rate FiO2 07/02/25 05:35 98.0 82 20 148/98 (115) 99 98.0 07/02/25 05:34 148/98 07/02/25 04:30 98.2 74 16 155/94 (114) 100 98.2 07/02/25 02:21 89 20 9/19/25 02:21 98.6 85 18 179/106 100 98.6 Laboratory Tests Test 07/02/25 03:00 Lactic Acid Level 0.7 mmol/L (0.4-2.0) White Blood Count 6.3 10^3/uL (4.4-10.8) Departure 1 Departure Time of Disposition: 04:26 Impression: Primary Impression: Abdominal pain Additional Impressions: Peripheral edema Thrush Vomiting Disposition: ADMITTED INPATIENT Condition: Stable Comments PATIENT ADMITTED TO HOSPITALIST SERVICE FOR FURTHER TREATMENT, EVALUATION AND MONITORING. Critical Care Note Critical Care Time?: No Stability Stability form required: No Heart Score Heart Score: Heart Score Response (Comments) Value History N/A 0 EKG N/A 0 Age N/A 0 Risk Factors N/A 0 Troponin N/A 0 Total 0 I personally scribed for SHELBY HOWE MD ([email or web address]) on 07/02/25 at 02:47. Electronically submitted by Brock Cerna ([email or web address]). I personally scribed for SHELBY HOWE MD ([email or web address]) on 07/02/25 at 03:39. Electronically submitted by Brock Cerna ([email or web address]). SHELBY HOWE MD Jul 02, 2025 02:47
[2025-07-02] MEDS: ACETAMINOPHEN 325 MG TAB PO ONE (03:08)
[2025-07-02] MEDS: ONDANSETRON ODT 4 MG TAB PO ONE (03:09)
--- NOTE | 2025-07-02 03:20 | DVH ---
CHEST RADIOGRAPH Indication: Chest pain, shortness of breath Technique: Single frontal view of the chest was obtained COMPARISON: XY CHEST PORTABLE on DOS: 05/09/25, XR CHEST 1 VIEW on DOS: 07/16/24, XY CHEST PORTABLE on DOS: 06/30/24, XR CHEST 1 VIEW on DOS: 09/05/23, XR CHEST 1 VIEW on DOS: 01/12/23 FINDINGS: Lines and Tubes: None Lungs: Clear Pleura: No effusion. No pneumothorax. Cardiomediastinal contours: Unremarkable Bones: Unremarkable IMPRESSION: 1. No acute disease.
--- NOTE | 2025-07-02 03:21 | DVH ---
Exam: CT CT AB PEL WO CON-NO ORAL OR IV History: Abdominal pain, nausea, vomiting Comparison Study: CT CT AB PEL WO CON-NO ORAL OR IV on DOS: 12/01/24, CT ABDOMEN PELVIS WITHOUT on DOS : 01/16/23, CT ABD PELVIS WO CONTRAST on DOS: 03/15/22 Technique: Multidetector spiral CT of the abdomen was performed from lung bases to pubic symphysis. I maging was performed without IV contrast. Axial, coronal and sagittal multiplanar reformats were obta ined from the axial data set by the technologist. Radiation Dose : 1. Abdomen/Pelvis: CTDIvol 9.23 mGy, DLP 549.56 mGy*cm. Findings: Evaluation of solid organs is limited due to lack of intravenous contrast use. Exam is further limite d by lack of peritoneal fat. Lower Chest: No acute findings. Liver: Unremarkable. Gallbladder and Biliary Tree: Cholecystectomy change. Pancreas: Not well assessed. Spleen: Unremarkable. Adrenal Glands: Unremarkable. Kidneys/Ureters: No urinary stone or obstruction. Bladder: Grossly unremarkable for degree of distention. Pelvic Organs: Unremarkable Bowel: No evidence of wall thickening or obstruction. Redemonstrated bariatric postsurgical change of the stomach, and anastomotic sutures of the small bowel in the left lower quadrant.. The appendix is not visualized. Vasculature: Infrarenal IVC filter. Mild atherosclerosis. Lymphadenopathy: No obvious adenopathy. Peritoneum: No ascites, free air, or fluid collection. Abdominal Wall: Mild anasarca redemonstrated. Musculoskeletal: No acute findings. Degenerative change of the spine and pelvis. L5 spondylolysis wi th L5-S1 spondylolisthesis. IMPRESSION: 1. Limited exam. No acute abdominopelvic abnormality, evidence of urinary stone or obstruction. 2. Chronic and incidental findings without significant interval change as above. Radiation optimization: All CT scans at this facility use at least one of these dose optimization thompson hniques: automated exposure control mA and/or kV adjustment per patient size (includes targeted exam s where dose is matched to clinical indication) or iterative reconstruction.
[2025-07-02 03:30] LABS: Hematocrit 33.4 % (36.0-46.0); Hemoglobin 11.0 g/dL (12.2-16.2); Mean Corpuscular Hemoglobin 24.7 pg (28.0-32.0); Mean Corpuscular Volume 74.8 fL (80.0-100.0); Nucleated Red Blood Cells % 0.1 %
[2025-07-02 03:40] LABS: Alanine Aminotransferase 12 U/L (7-40); Albumin 4.0 g/dL (3.2-4.8); Alkaline Phosphatase 110 U/L (46-116); Anion Gap 9 (5-15); BUN/Creatinine Ratio 9.7 (10.0-20.0); Blood Urea Nitrogen 9 mg/dL (9-23); Calcium 9.1 mg/dL (8.7-10.4); Carbon Dioxide 26 mmol/L (20-31); Glucose 95 mg/dL (74-106); Lipase 36 U/L (12-53); Sodium 143 mmol/L (136-145); Total Protein 6.8 g/dL (5.7-8.2)
[2025-07-02 03:41] LABS: Bilirubin, Total 0.4 mg/dL (0.2-1.0)
[2025-07-02 03:42] LABS: Chloride 108 mmol/L (98-107); Potassium 3.5 mmol/L (3.5-5.1)
[2025-07-02 05:02] LABS: Urine Protein, UAD TRACE (Negative)
[2025-07-02] MEDS: FUROSEMIDE 40 MG/4 ML VIAL IV ONE (05:34)
[2025-07-02] MEDS ORDERED: ONDANSETRON HCL 4 MG/2 ML VIAL IV PRN (06:00)
[2025-07-02] MEDS: InsuLIN REG 1unit/0.01ml Soln (100units/ml) SC SCH (06:00)
[2025-07-02] MEDS ORDERED: DEXTROSE (50%) 50ML SYRG IV PRN (06:00)
[2025-07-02] MEDS: SODIUM CHLORIDE 0.9% 500 ML IV ONE (06:28)
[2025-07-02] MEDS: ACCU-CHEK COMFORT CURVE STRIP VI SCH (06:29)
[2025-07-02] MEDS: SODIUM CHLORIDE 0.9% 1,000 ML IV ONE (06:29)
[2025-07-02] MEDS: ALBUTEROL SULF 2.5 MG/0.5ML(0.5%) NEB SOLN NEB PRN (06:33)
[2025-07-02] MEDS: PANTOPRAZOLE 40 MG/10 ML VIAL INJ IV ONE (06:33)
--- NOTE | 2025-07-02 06:51 | DVHHPRES ---
History of Present Illness Resident Creating Document: JOSE E COY RESIDENT History of Present Illness History of Present Illness (HPI): Krystal Stoner is a 65-year-old female with a complex past medical history including lymphedema, type 2 diabetes mellitus, chronic obstructive pulmonary disease (COPD), asthma, hypertension, rheumatoid arthritis, bipolar disorder, and a history of deep vein thrombosis (DVT) for which an inferior vena cava (IVC) filter was placed in 2013. She presented with complaints of abdominal pain, vomiting, decreased appetite, shortness of breath, dizziness, and multiple mechanical falls. She describes the abdominal pain as sharp, rated 10 out of 10 in intensity, occurring on and off, radiating to the right flank and back, and worsening with food intake. She also reports associated constipation and notes that she has not been drinking adequate fluids over the past few days. Past Medical History (PMH): lymphedema, type 2 diabetes mellitus, chronic obstructive pulmonary disease (COPD), asthma, hypertension, rheumatoid arthriti s, bipolar disorder, and a history of deep vein thrombosis Past Surgical History (PSH): Cholecystectomy, section Family history (FH): History of prostate cancer in father, hypertension in father and mother EtOH: Denies alcohol use Smoking /Vapin pack year smoking history Recreational Drugs: Occasional marijuana use Residence: Lives alone Home Medications: No home medications Allergies: Metformin, penicillin, sulfa antibiotic, seafood, iodine PCP: Dr. Lora Specialist relevant to admission: GI Review of Systems Review of Systems General: patient denies fever, fatigue, weaknes, sweating, any recent changes in appetite and weight HEENT: No headaches, visiual changes, hearing loss, tinnitus, nasal congestion and discharge, and sore throat. Cardiovascular: Denies chest pain, palpitations, dyspnea on exertion, orthopnea, or claudication. Respiratory: Complains of shortness of breath Gastrointestinal: Complains of vomiting, abdominal pain, constipation Genitourinary: No dysuria, hematuria, discharge, frequency, urgency, nocturia, incontinence, and urinary retention. Endocrine: No heat or cold intolerance, polydipsia, polyuria, and polyphagia. Neurological: No dizziness, extremity weakness and numbness, tremors, gait disturbance, seizures, and memory impairment. Psychiatric: Denies depression, anxiety,or insomnia. Musculoskeletal: Denies neck pain, stiffness and swelling, back pain, muscle weakness, joint pain, stiffness, swelling, or limited range of motion. Skin: No rashes, itching, skin lesion, changes in hair, nail, skin texture and breast. Hematologic/Lymphatic: Denies easy bruising, bleeding tendencies, or lymph node enlargement. Allergies: Coded Allergies: Iodine (Verified Allergy, Unknown, 05/21/21) Metformin (Verified Allergy, Unknown, 05/21/21) Penicillins (Verified Allergy, Unknown, 05/21/21) Sulfa Antibiotics (Verified Allergy, Unknown, 05/21/21) Uncoded Allergies: SEAFOOD (Allergy, Unknown, 05/21/21) Medications Current Medications Medications Dose Ordered Sig/Calista Route Start Time Stop Time Status Last Admin Dose Admin Diagnostic Test (Pha) 1 strip Q6HR 07/02/25 06:00 07/02/25 06:29 1 STRIP Insulin Human Regular Q6HR SC 07/02/25 06:00 Dextrose 50 ml UD PRN IV 07/02/25 06:00 Albuterol 2.5 mg Q4HPRN PRN NEB 07/02/25 06:00 07/02/25 06:33 2.5 MG Morphine Sulfate 1 mg Q4HP PRN IV 07/02/25 06:00 Pantoprazole Sodium 40 mg DAILY IV 07/03/25 10:00 Ondansetron HCl 4 mg Q4HPRN PRN IV 07/02/25 06:00 Exam Vital Signs Vital Signs Date Time Temp Pulse Resp B/P (MAP) Pulse Ox O2 Delivery O2 Flow Rate FiO2 07/02/25 05:35 98.0 82 20 148/98 (115) 99 98.0 Exam General Appearance: Alert, Oriented X3, Cooperative, No acute distress HEENT: Atraumatic, PERRLA, EOMI, Mucous membrane dry Respiratory: Clear to auscultation, Normal air movement Cardiovascular: Regular rate, Normal S1, Normal S2, No murmurs, no chest wall tenderness Abdominal: Tenderness in the right lower quadrant and right flank Extremities: No clubbing, No cyanosis, No edema, Normal pulses, swelling in bilateral lower limbs Skin: No rashes, No breakdown, No significant lesion Neuro: Normal gait, Normal speech, Strength at 5/5 X4 ext, Normal tone, Sensation intact, Cranial nerves 3-12 NL, Reflexes 2+ Psych/Mental Status: Mental status NL, Mood NL Labs/Xrays Labs Test 07/02/25 04:06 07/02/25 03:37 07/02/25 03:00 Range/Units Troponin I High Sensitivity 6 </=34 ng/L Urine Color Yellow Yellow Urine Clarity Clear Clear Urine pH 6.0 5.0-9.0 Urine Specific Melfa 1.020 1.001-1.035 Urine Protein Trace H Negative Urine Ketones Negative Negative Urine Blood Negative Negative /uL Urine Nitrite Negative Negative Urine Bilirubin Negative Negative Urine Urobilinogen 4 H Negative mg/dL Urine Leukocyte Esterase Trace Negative /uL Urine RBC None seen 0 - 4 /hpf Urine Microscopic WBC 1 0-5 /HPF Urine Squamous Epithelial Cells Few <5 /hpf Urine Bacteria None seen None Seen /hpf Urine Glucose Normal Normal mg/dL White Blood Count 6.3 4.4-10.8 10^3/uL Red Blood Count 4.47 4.0-5.20 10^6/uL Hemoglobin 11.0 L 12.2-16.2 g/dL Hematocrit 33.4 L 36.0-46.0 % Mean Corpuscular Volume 74.8 L 80.0-100.0 fL Mean Corpuscular Hemoglobin 24.7 L 28.0-32.0 pg Mean Corpuscular Hemoglobin Concent 33.1 32.0-36.0 g/dL Red Cell Distribution Width 17.2 H 11.8-14.3 % Platelet Count 358 140-450 10^3/uL Mean Platelet Volume 7.3 6.9-10.8 fL Neutrophils (%) (Auto) 62.7 37.0-80.0 % Lymphocytes (%) (Auto) 26.6 10.0-50.0 % Monocytes (%) (Auto) 8.1 0.0-12.0 % Eosinophils (%) (Auto) 2.0 0.0-7.0 % Basophils (%) (Auto) 0.6 0.0-2.0 % Neutrophils # (Auto) 4.0 1.6-8.6 10 ^3/uL Lymphocytes # (Auto) 1.7 0.4-5.4 10 ^3/uL Monocytes # (Auto) 0.5 0-1.3 10 ^3/uL Eosinophils # (Auto) 0.1 0-0.8 10 ^3/uL Basophils # (Auto) 0 0-0.2 10 ^3/uL Nucleated Red Blood Cells 0.1 % Sodium Level 143 136-145 mmol/L Potassium Level 3.5 3.5-5.1 mmol/L Chloride Level 108 H 98-107 mmol/L Carbon Dioxide Level 26 20-31 mmol/L Anion Gap 9 5-15 Blood Urea Nitrogen 9 9-23 mg/dL Creatinine 0.93 0.550-1.02 mg/dL Glomerular Filtration Rate Calc 68 >90 mL/min BUN/Creatinine Ratio 9.7 L 10.0-20.0 Serum Glucose 95 74-106 mg/dL Lactic Acid Level 0.7 0.4-2.0 mmol/L Calcium Level 9.1 8.7-10.4 mg/dL Total Bilirubin 0.4 0.2-1.0 mg/dL Aspartate Amino Transferase (AST) 24 13-40 U/L Alanine Aminotransferase (ALT) 12 7-40 U/L Alkaline Phosphatase 110 46-116 U/L B-Type Natriuretic Peptide 58.01 0-100 pg/mL Total Protein 6.8 5.7-8.2 g/dL Albumin 4.0 3.2-4.8 g/dL Lipase 36 12-53 U/L SEPSIS Sepsis Screen Date sepsis recognized/suspect: Jul 02, 2025 Time Sepsis recognized/suspect: 220 Recent Procedure: No On Antibiotic Therapy: No Respiratory Rate >20: No Heart Rate >90: No Temp<36 C (96.8 F) or >38.3 C: No SBP <90 or MAP <65 mmHG: No New Acute Mental Status Change: No Is the patient on CPAP, BIPAP,: No Physician Orders Electrocardigram (07/02/25 02:43) Chest Xray 1 View (07/02/25 02:43) Ct Ab Pel Wo Con-No Oral Or Iv (07/02/25 02:43) Electrocardigram (07/02/25 03:43) Electrocardigram (07/02/25 05:43) Admit (07/02/25 05:47) Oxygen By Nasal Cannula (07/02/25 05:47) Stat Ekg For Chest Pain (07/02/25 05:47) Notify Md Of Changes From Base (07/02/25 05:47) Jumpbasting Lining Baster For 24 Hours (07/02/25 05:47) Emergency Dysrhythmia Protocol (07/02/25 05:47) Rhythm Strips Once Every Shift (07/02/25 05:47) Sodium Chloride 0.9% (07/02/25 06:00) Sodium Chloride 0.9% (07/02/25 06:00) Complete Blood Count (07/02/25 05:47) Comprehensive Metabolic Panel (07/02/25 05:47) * [facility] Customer Support Manager (07/02/25 05:47) Glucose Blood (Accu-Chek Comfort Curve T (07/02/25 06:00) Insulin R (Human) (Insulin R) (07/02/25 06:00) Dextrose 50% Syringe (07/02/25 06:00) Albuterol Medneb (Ventolin Medneb) (07/02/25 06:00) Morphine Sulfate Injection (07/02/25 06:00) Bilat Lower Dvt (07/02/25 05:47) Ondansetron Hcl (Zofran) (07/02/25 06:00) Pantoprazole (Protonix) (07/03/25 10:00) Vital Signs Date Time Temp Pulse Resp B/P (MAP) Pulse Ox O2 Delivery O2 Flow Rate FiO2 07/02/25 05:35 98.0 82 20 148/98 (115) 99 98.0 07/02/25 05:34 148/98 07/02/25 04:30 98.2 74 16 155/94 (114) 100 98.2 07/02/25 02:21 89 20 07/02/25 02:21 98.6 85 18 179/106 100 98.6 Laboratory Tests Test 07/02/25 03:00 Lactic Acid Level 0.7 mmol/L (0.4-2.0) White Blood Count 6.3 10^3/uL (4.4-10.8) Medications Medications Dose Ordered Sig/Calista Route Start Time Stop Time Status Last Admin Dose Admin Acetaminophen 650 mg ONCE ONCE PO 07/02/25 02:45 07/02/25 02:46 DC 07/02/25 03:08 650 MG Albuterol 2.5 mg Q4HPRN PRN NEB 07/02/25 06:00 07/02/25 06:33 2.5 MG Diagnostic Test (Pha) 1 strip Q6HR 07/02/25 06:00 07/02/25 06:29 1 STRIP Furosemide 20 mg ONCE ONCE IV 07/02/25 04:30 07/02/25 04:31 DC 07/02/25 05:34 20 MG Ondansetron HCl 4 mg ONCE ONCE PO 07/02/25 02:45 07/02/25 02:47 DC 07/02/25 03:09 4 MG Pantoprazole Sodium 40 mg ONCE ONCE IV 07/02/25 06:00 07/02/25 06:14 DC 07/02/25 06:33 40 MG Tramadol HCl 50 mg ONCE ONCE PO 07/02/25 02:45 07/02/25 02:46 DC 07/02/25 03:08 50 MG Assessment/Plan Assessment/Plan Assessment and plan # NSAID-induced gastritis - IV Protonix - GI consult - Morphine p.r.n. # Cannabis induced hyperemesis - IV fluids - Ondansetron p.r.n. # Microcytic Hypochromic anemia - Follow CBC # COPD, not on acute exacerbation - Nebulization with albuterol and ipratropium # History of DVT with IVC filter - DVT ultrasound - D-dimer - Not on DVT prophylaxis due to NSAID-induced gastritis # Essential hypertension - Not on any home medication - Monitor blood pressure in-hospital # Type 2 diabetes mellitus - Sliding scale insulin # Lymphedema - Outpatient follow-up with PCP on discharge # Rheumatoid arthritis - Held NSAID # Bipolar disorder - Follow-up with psychiatrist as outpatient on discharge # Medication noncompliance PUD prophylaxis: protonix 40mg DVT prophylaxis: Not on DVT prophylaxis due to NSAID-induced gastritis Barriers to discharge: Medical diagnosis and management in progress. Patient lives with family. Independent for ADL. PCP: Dr. Lora Specialist Relevant To Admission: GI Case discussed with Dr. Villasenor. Code Status: Full Code. Complex patient care discussion needed. Spend total 35 minutes for bedside assessment, case discussion and management. Plan discussed with: Patient My Orders Orders - JOSE E COY RESIDENT Procedure Category Date Status Time Admit ADMIT 07/02/25 Transmitted 05:47 Oxygen By Nasal RT 07/02/25 Transmitted Cannula 05:47 Stat Ekg For Chest JUNIOR 07/02/25 In Process Pain 05:47 Notify Of Changes JUNIOR 07/02/25 In Process From Base 05:47 Jumpbasting Lining Baster For JUNIOR 07/02/25 In Process 24 Hours 05:47 Emergency Dysrhythmia JUNIOR 07/02/25 In Process Protocol 05:47 Rhythm Strips Once JUNIOR 07/02/25 In Process Every Shift 05:47 Sodium Chloride 0.9% PHA 07/02/25 In Process 06:00 Sodium Chloride 0.9% PHA 07/02/25 In Process 06:00 Complete Blood Count LAB 07/02/25 Logged 05:47 Comprehensive LAB 07/02/25 Logged Metabolic Panel 05:47 * [facility] Customer Support Manager CONS 07/02/25 Transmitted 05:47 Glucose Blood PHA 07/02/25 In Process (Accu-Chek Comfort 06:00 Insulin R (Human) PHA 07/02/25 In Process (Insulin R) 06:00 Dextrose 50% Syringe PHA 07/02/25 In Process 06:00 Albuterol Medneb PHA 07/02/25 In Process (Ventolin Medneb) 06:00 Morphine Sulfate PHA 07/02/25 In Process Injection 06:00 Bilat Lower Dvt US 07/02/25 Logged 05:47 Ondansetron Hcl PHA 07/02/25 In Process (Zofran) 06:00 Pantoprazole PHA 07/03/25 In Process (Protonix) 10:00 Date of Service: Jul 02, 2025 Billing Provider: MIRELLA VILLASENOR MD Common Visit Codes: [id number] INP/OBS CARE (HIGH) Secondary Visit Codes: [id number] CARE PLAN 30 MINUTES JOSE E COY Jul 02, 2025 06:51
[2025-07-02 07:07] LABS: Hematocrit 34.1 % (36.0-46.0); Hemoglobin 11.1 g/dL (12.2-16.2); Mean Corpuscular Hemoglobin 24.7 pg (28.0-32.0); Mean Corpuscular Volume 75.8 fL (80.0-100.0); Nucleated Red Blood Cells % 0.1 %
[2025-07-02] MEDS ORDERED: IPRATROPIUM BROM 0.5 MG/2.5ML INH SOL NEB PRN (07:15)
[2025-07-02 07:21] LABS: Alanine Aminotransferase 12 U/L (7-40); Albumin 4.1 g/dL (3.2-4.8); Alkaline Phosphatase 107 U/L (46-116); Anion Gap 8 (5-15); BUN/Creatinine Ratio 8.2 (10.0-20.0); Bilirubin, Total 0.4 mg/dL (0.2-1.0); Blood Urea Nitrogen 8 mg/dL (9-23); Calcium 9.1 mg/dL (8.7-10.4); Carbon Dioxide 26 mmol/L (20-31); Chloride 108 mmol/L (98-107); Glucose 84 mg/dL (74-106); Potassium 3.4 mmol/L (3.5-5.1); Sodium 142 mmol/L (136-145); Total Protein 7.1 g/dL (5.7-8.2)
--- NOTE | 2025-07-02 07:35 | DVH ---
Bilateral lower extremity venous duplex Clinical History: history of DVT Comparison: US RT LOWER DVT on DOS: 02/18/25 Technique: Duplex Doppler evaluation of the deep venous systems of both lower extremities from the common femora l veins to the popliteal veins including color Doppler and spectral/pulsed waveform analysis was perf ormed. Findings: RIGHT SIDE: The common femoral vein demonstrates appropriate compressibility and waveform variability. There is compressibility/patency of the great saphenous vein at the proximal thigh. The femoral vein demonstrates appropriate compressibility and waveform variability. The deep femoral vein demonstrates appropriate compressibility and waveform variability. The popliteal vein demonstrates appropriate compressibility and waveform variability. There is normal compressibility at the tibioperoneal trunk. LEFT SIDE: The common femoral vein demonstrates appropriate compressibility and waveform variability. There is compressibility/patency of the great saphenous vein at the proximal thigh. The femoral vein demonstrates appropriate compressibility and waveform variability. The deep femoral vein demonstrates appropriate compressibility and waveform variability. The popliteal vein demonstrates appropriate compressibility and waveform variability. There is normal compressibility at the tibioperoneal trunk. Impression: No right or left femoropopliteal venous thrombosis. Left popliteal fossa cyst measures 1.9 x 2.4 x 2.1 cm.
[2025-07-02 09:04] LABS: Total Iron Binding Capacity 375.0 ug/dL (250-425)
[2025-07-02 09:06] LABS: Iron 32.0 ug/dL (50-170)
[2025-07-02 09:07] LABS: Ferritin 15.2 ng/mL (10-291)
[2025-07-02] MEDS ORDERED: METOCLOPRAMIDE HCL 5MG/ml INJ 2ml VIAL IV PRN (09:45)
--- NOTE | 2025-07-02 09:49 | DVHPNRES ---
Progress Note Date Seen: Jul 02, 2025 Resident Creating Document: ROBB BYERS RESIDENT Medical Necessity Reason Pt with a Central, PICC or Fol: No Subjective Review of Systems Patient is 65 years old female with past medical history of hypertension, diabetes mellitus type 2, COPD not on home oxygen, asthma, lymphedema, history of DVT, status post surgical intervention, status post IVC, rheumatoid arthritis, lymphedema, bipolar disorder came with a complaint of abdominal pain nausea and vomiting. As per patient she has been having abdominal pain, gradual onset, 10/10, sharp, intermittent, radiating to the back and flank. Patient also endorsed nausea and vomiting 7 times, no blood. On further inquiry patient reported she was taking a leave for last 1 month. Patient reported she moved from [place] and does not have a PCP that is why she was not taking her medications. Patient used to be on warfarin blood clot but does not know why she stopped taking warfarin. Patient denied any fever, diarrhea, chest pain, acute joint redness or swelling. Initial lab workup revealed hemoglobin 11.0, serum iron 32, ferritin 3.2, magnesium 1.7, hemoglobin A1c 5.6, TSH 1.23. Urinalysis negative for UTI. CT abdomen and pelvis revealed-Abdominal Wall: Mild anasarca redemonstrated Degenerative change of the spine and pelvis. L5 spondylolysis with L5-S1 spondylolisthesis. Infrarenal IVC filter. Mild atherosclerosis. Doppler study the lower extremity negative for DVT. Chest x- ray no acute cardiopulmonary abnormality.Ultrasound of the kidney negative for renal parenchymal disease. PMH-hypertension, diabetes mellitus type 2, COPD not on home oxygen, asthma, lymphedema, history of DVT, status post surgical intervention, status post IVC, rheumatoid arthritis, lymphedema, bipolar disorde PSH- IVC placement, gastric bypass surgery, , clot removal from leg. Cholecystectomy Allergy- iodine, metformin, penicillin, seafood, sulfa antibiotic. Personal History/ Social History- 40 pack year smoking history, Occasional marijuana use FH- History of prostate cancer in father, hypertension in father and mother Patient was seen today at the bedside. Patient Cardiovascular- deny acute chest pain or shortness of breath or cough or palpitation Respiratory denies cough or short of breath or wheezing Gastrointestinal- denies any rectal bleeding, nausea or vomiting Musculoskeletal-denies acute joint swelling or tenderness or redness Neurological- denies acute dysarthria, dysphagia, change in vision Psychiatry- denies depression or SI or HI Skin- denies acute rash or purpura Patient was seen today at bedside, labs and chart reviewed. Patient reported abdominal pain 8/10, on examination diffuse abdominal tenderness especially in the epigastric region. Started iron supplement due to iron-deficiency anemia. Started on pantoprazole 40 mg IV b.i.d., sucralfate q.8h, restarted home medication atenolol. Started on lisinopril 5 mg p.o. daily, restarted home medication paroxetine. Pending GI consult. Ultrasound of the kidney negative for renal parenchymal disease. Objective vital signs Vital Sign Date Time Temp Pulse Resp B/P (MAP) Pulse Ox O2 Delivery O2 Flow Rate FiO2 07/02/25 08:00 97.8 64 10 159/95 (116) 98 97.8 07/02/25 08:00 Room Air* 0 21 medications Current Medications Medications Dose Ordered Sig/Calista Route Start Time Stop Time Status Last Admin Dose Admin Diagnostic Test (Pha) 1 strip Q6HR 07/02/25 06:00 07/02/25 06:29 1 STRIP Insulin Human Regular Q6HR SC 07/02/25 06:00 Dextrose 50 ml UD PRN IV 07/02/25 06:00 Albuterol 2.5 mg Q4HPRN PRN NEB 07/02/25 06:00 07/02/25 06:33 2.5 MG Morphine Sulfate 1 mg Q4HP PRN IV 07/02/25 06:00 Ondansetron HCl 4 mg Q4HPRN PRN IV 07/02/25 06:00 Pantoprazole Sodium 40 mg BID IV 07/02/25 10:00 Sucralfate 1 gm TID PO 07/02/25 14:00 Ipratropium Jackson 0.5 mg Q4HPRN PRN NEB 07/02/25 07:15 Examination General examination- awake, alert, oriented HEENT- PEERLA, no acute nasal discharge Cardiovascular- S1-S2 audible, rate and rhythm regular, no murmur Respiratory- CTAB, no wheeze or rhonchi Gastrointestinal-diffuse abdominal wall tenderness++, bowel sound+. Nondistended Musculoskeletal-no acute joint swelling or tenderness or redness Lower extremity- bilateral lower extremity edema/swelling +++ Neurological- cranial nerves intact, no acute dysarthria or dysphagia Psychiatry- denies depression or SI or HI Skin- no acute rash or purpura laboratory and microbiology Laboratory Tests 07/02/25 06:33 Test 07/02/25 06:33 Range/Units Serum Glucose 84 74-106 mg/dL Problem List/Assessment/Plan Problem List/Assessment/Plan Assessment and Plan # acute gastritis likely due to NSAIDs in use # rule out acute pancreatitis/colitis # cannabinoids induced hyperemesis # intractable abdominal pain, nausea and vomiting likely due to above -lipase 36 -CT abdomen and pelvis revealed-Abdominal Wall: Mild anasarca redemonstrated Degenerative change of the spine and pelvis. L5 spondylolysis with L5-S1 spondylolisthesis. Infrarenal IVC filter. Mild atherosclerosis -pantoprazole 40 mg IV b.i.d. -sucralfate as prescribed -pending GI consult # iron-deficiency anemia -ordered iron supplement # uncontrolled hypertension with elevated blood pressure -restarted home medication atenolol -order lisinopril 5 mg p.o. daily -hydralazine p.r.n. as prescribed # diabetes mellitus type 2 -monitor blood sugar # bilateral leg swelling likely due to lymphedema # history of DVT bilateral lower extremity, status post IVC -Doppler study of the lower extremity negative for DVT -continue current conservative management # bipolar disorder -resume home medication # rheumatoid arthritis -conservative management # COPD no acute exacerbation Nebulization PRN if prescribed # medication noncompliance Goals of care, Code status ; discussed with >15 minutes PUD prophylaxis: Pantoprazole DVT prophylaxis: SCD Plan discussed with Dr. Potts, nursing staff, Total time spent on patient evaluation, chart review, assessment and plan, discussion discussion >35 minutes Plan discussed with: Patient, Other (RN) My Orders My Orders Orders - ROBB BYERS RESIDENT Procedure Category Date Status Time Drug Screen LAB 07/03/25 Verified 04:00 Pantoprazole PHA 07/02/25 In Process (Protonix) 10:00 Sucralfate Tab PHA 07/02/25 In Process (Carafate Tab) 14:00 Ipratropium Medneb PHA 07/02/25 In Process (Atrovent Medneb) 07:15 Hydralazine Injection PHA 07/02/25 Logged (Apresoline Inject 09:30 Morphine Sulfate PHA 07/02/25 Logged Injection 09:30 Metoclopramide PHA 07/02/25 Logged Injection (Reglan 09:45 Hydralazine Injection PHA 07/02/25 Logged (Apresoline Inject 09:45 Atenolol Tablet PHA 07/02/25 Logged (Tenormin Tablet) 10:00 Lisinopril Tablet PHA 07/02/25 Logged (Zestril Tablet) 09:45 Clear Liq Diet DIET 07/02/25 Transmitted Lunch Pharmacy To Reconcile ORDERS 07/02/25 Transmitted Home Med 09:36 Communication Order ORDERS 07/02/25 Transmitted 09:36 Kidney US 07/02/25 Logged 09:31 Potassium Effervesent PHA 07/02/25 Transmitted Tab (Klor-Con/Ef) 09:45 Iron Ivpb PHA 07/02/25 Transmitted 12:00 Date of Service: Jul 02, 2025 Billing Provider: PEREZ POTTS MD Common Visit Codes: [id number] INP/OBS CARE(HIGH) Secondary Visit Codes: [id number] CARE PLAN 30 MINUTES ROBB BYERS RESIDENT Jul 02, 2025 09:49 PEREZ POTTS MD Jul 09, 2025 23:43
[2025-07-02] MEDS ORDERED: LACTULOSE 20Gm/30ML SOLN PO ONE (10:00)
[2025-07-02] MEDS ORDERED: LACTULOSE 20Gm/30ML SOLN PO PRN (10:00)
[2025-07-02] MEDS: MORPHINE SULFATE INJ 2 MG/ml SYRG IV PRN (10:52)
[2025-07-02] MEDS: LISINOPRIL 5 MG TAB PO SCH (10:53)
[2025-07-02] MEDS: POTASSIUM EFFERVESENT TAB 25 MEQ GT ONE (10:53)
[2025-07-02] MEDS: PANTOPRAZOLE 40 MG/10 ML VIAL INJ IV SCH (10:53)
[2025-07-02] MEDS: ATENOLOL 25 MG TAB PO SCH (10:54)
[2025-07-02] MEDS: DOCUSATE SOD 100 MG CAP PO SCH (10:54)
[2025-07-02] MEDS: ENOXAPARIN SOD 40 MG/0.4 ML SYRINGE SC SCH (11:04)
[2025-07-02] MEDS: hydrALAZINE HCL 20 MG/ML VL IV ONE (11:06)
[2025-07-02] MEDS: MORPHINE SULFATE INJ 2 MG/ml SYRG IV ONE (11:06)
--- NOTE | 2025-07-02 11:12 | DVH ---
INDICATION: Renal parynchymal disease/Nepgrolithiasis TECHNIQUE: Multiple real-time sonographic images of the kidneys and bladder were obtained. COMPARISON: None FINDINGS: The right kidney measures 9 cm in length, which is normal in size. There is normal echogeni city of the right kidney. No hydronephrosis. The left kidney measures 11 cm in length, which is normal in size. There is normal echogenicity of th e left kidney. No hydronephrosis. No large intraluminal masses are seen in the bladder. IMPRESSION: 1. Normal sonographic appearance of the kidneys. No hydronephrosis.
[2025-07-02] MEDS: MAGNESIUM SULFATE 1GM/100ML 100 ML IV ONE (12:05)
[2025-07-02] MEDS: IRON SUCROSE COMPLEX 110 ML IV SCH (14:02)
[2025-07-02] MEDS: SUCRALFATE 1 GM TAB PO SCH (14:21)
--- NOTE | 2025-07-02 17:37 | DVHINCON2 ---
Date of service: Jul 02, 2025 Referring Physician ZEESHAN Reason for Consultation Abdominal pain History of Present Illness The patient is a 65-year-old female with a history of hypertension, diabetes, history of bipolar disorder, history of by gastric bypass surgery, COPD, history of DVT history of lymphedema, admitted with abdominal pain. Patient denies hematemesis, diarrhea or constipation. She does not recall when her last colonoscopy was but states that she is due. Imaging tests are negative other than chronic changes due to gastric bypass surgery. GI consultation was obtained for evaluation. Patient states that the pain is right upper quadrant radiates to the back in the epigastric region. She states it is always present worse with movement as well as with the eating. Past Surgical History Cholecystectomy gastric bypass surgery IVC filter section Family History No GI diseases or malignancies Social History Patient smokes cigarettes, occasional marijuana, no significant alcohol abuse Allergies: Coded Allergies: Iodine (Verified Allergy, Unknown, 05/21/21) Metformin (Verified Allergy, Unknown, 05/21/21) Penicillins (Verified Allergy, Unknown, 05/21/21) Sulfa Antibiotics (Verified Allergy, Unknown, 05/21/21) Uncoded Allergies: SEAFOOD (Allergy, Unknown, 05/21/21) Home Meds Active Scripts Hydrocodone-Acetaminophen (Hydrocodone Bitartrate/AC 5-325 mg) 1 Tab Tab, 1 TAB PO Q6HP PRN, #20 TAB Prov:DANE PABLO PAC 02/18/25 Magnesium Citrate (MAGNESIUM CITRATE) 100 Mg Tab, 2-4 TAB OR HS PRN, #30 TAB prn constipation Prov:OLINDA READ MD 12/02/24 Ondansetron Odt 4MG Tab (ZOFRAN PO) 4 Mg Tb, 4 MG PO Q8HP PRN, #30 TAB prn n/v ODT TAB-DISSOLVE IN MOUTH, THEN SWALLOW Prov:OLINDA READ MD 12/02/24 Dicyclomine Hcl (BENTYL CAPSULE) 10 Mg Cp, 2 CAP PO Q6HP PRN, #30 CAP 11 Refills prn abdominal pain Prov:OLINDA READ MD 12/02/24 Albuterol Sulfate (VENTOLIN MDI) 90 Mcg Ih, 90 MCG IN Q4HP PRN for 30 Days, #1 INH Prov:MICHEL ADAM MD 06/30/24 Methylprednisolone (Medrol Dosepak) 4 Mg Sathya, 4 MG PO UD, #21 TAB UAD Prov:MICHEL ADAM MD 06/30/24 Azithromycin (Zithromax) 500 Mg Tab, 500 MG PO DAILY for 7 Days, #7 TAB Prov:MICHEL ADAM MD 06/30/24 Cephalexin (KEFLEX CAPSULE) 250 Mg Cp, 250 MG PO TID for 5 Days, #15 TAB Prov:DANE DUMONT MD 03/15/22 Acetaminophen (Apap) 325 Mg Tab, 500 MG PO Q4HP PRN for 10 Days, #60 TAB 0 Refills Prov:LEONARD WRIGHT 10/01/21 Current Medications Current Medications Medications (Trade) Dose Ordered Sig/Calista Route PRN Reason Start Time Stop Time Status Last Admin Diagnostic Test (Pha) (Accu-Chek Comfort Curve T) 1 strip Q6HR 07/02/25 06:00 07/02/25 12:17 Insulin Human Regular (InsuLIN R) Q6HR SC 07/02/25 06:00 Dextrose 50 ml UD PRN IV Blood Sugar LESS THAN 60 07/02/25 06:00 Albuterol (Ventolin Medneb) 2.5 mg Q4HPRN PRN NEB SHORTNESS OF BREATH 07/02/25 06:00 07/02/25 06:33 Morphine Sulfate 1 mg Q4HP PRN IV MODERATE PAIN (4-6 PAIN SCALE) 07/02/25 06:00 07/02/25 16:19 Pantoprazole Sodium (Protonix) 40 mg DAILY IV 07/03/25 10:00 07/02/25 07:10 DC Ondansetron HCl (Zofran) 4 mg Q4HPRN PRN IV NAUSEA / VOMITING 07/02/25 06:00 Pantoprazole Sodium (Protonix) 40 mg BID IV 07/02/25 10:00 07/02/25 10:53 Sucralfate (Carafate Tab) 1 gm TID PO 07/02/25 14:00 07/02/25 14:21 Ipratropium Novelty (Atrovent Medneb) 0.5 mg Q4HPRN PRN NEB SHORTNESS OF BREATH 07/02/25 07:15 Metoclopramide HCl (Reglan Injection) 10 mg Q8HPRN PRN IV NAUSEA / VOMITING 07/02/25 09:45 Hydralazine HCl (Apresoline Injection) 10 mg Q6HP PRN IV SBP>150 07/02/25 09:45 Atenolol (Tenormin Tablet) 25 mg BID PO 07/02/25 10:00 07/02/25 10:54 Lisinopril (Zestril Tablet) 5 mg DAILY PO 07/02/25 09:45 07/02/25 11:05 Iron Sucrose 110 ml @ 110 mls/hr DAILY@1200 IV 07/02/25 12:00 07/02/25 14:02 Lactulose 30 ml BIDPRN PRN PO FOR CONSTIPATION 07/02/25 10:00 Docusate Sodium (Colace Capsule) 100 mg BID PO 07/02/25 10:00 07/02/25 10:54 Enoxaparin Sodium (Lovenox) 40 mg DAILY SC 07/02/25 10:00 07/02/25 11:05 DC 07/02/25 11:04 Review of Systems 12 point review of systems as per HPI She has microcytic anemia Vital Signs Vital Signs Date Time Temp Pulse Resp B/P (MAP) Pulse Ox O2 Delivery O2 Flow Rate FiO2 07/02/25 16:44 97.7 84 20 127/86 (100) 98 97.7 07/02/25 15:35 Room Air* 0 21 Physical Exam General: Well-developed well-nourished HEENT: NC/AT EOMI PERRLA O/P clear, no JVD or cervical lymphadenopathy, no scleral icterus Heart: Regular rate and rhythm, no murmurs rubs or gallops Lungs: Clear to auscultation bilaterally, no wheezes rales or rhonchi Abdomen: Soft, right upper quadrant tenderness to palpation nondistended, no organomegaly, normoactive bowel sounds Extremity: No clubbing cyanosis or edema, no rashes or bruises Neuro: Cranial nerves 2-12 grossly intact, moves all four extremities, no asterixis Labs/Diagnostic Data Labs Test 07/02/25 16:53 07/02/25 13:31 07/02/25 07:50 07/02/25 06:33 Range/Units POC Glucose 95 70-106 mg/dl Troponin I High Sensitivity 8 </=34 ng/L Iron Level 32 L 50-170 ug/dL Total Iron Binding Capacity 375 250-425 ug/dL Percent Iron Saturation 8.5 L 15-50 % Ferritin 15.2 10-291 ng/mL Vitamin B12 Level 126 L 211-911 pg/mL Folic Acid 14.16 >5.38 ng/mL White Blood Count 6.0 4.4-10.8 10^3/uL Red Blood Count 4.50 4.0-5.20 10^6/uL Hemoglobin 11.1 L 12.2-16.2 g/dL Hematocrit 34.1 L 36.0-46.0 % Mean Corpuscular Volume 75.8 L 80.0-100.0 fL Mean Corpuscular Hemoglobin 24.7 L 28.0-32.0 pg Mean Corpuscular Hemoglobin Concent 32.6 32.0-36.0 g/dL Red Cell Distribution Width 17.3 H 11.8-14.3 % Platelet Count 347 140-450 10^3/uL Mean Platelet Volume 7.2 6.9-10.8 fL Neutrophils (%) (Auto) 61.9 37.0-80.0 % Lymphocytes (%) (Auto) 27.2 10.0-50.0 % Monocytes (%) (Auto) 7.8 0.0-12.0 % Eosinophils (%) (Auto) 2.4 0.0-7.0 % Basophils (%) (Auto) 0.7 0.0-2.0 % Neutrophils # (Auto) 3.7 1.6-8.6 10 ^3/uL Lymphocytes # (Auto) 1.6 0.4-5.4 10 ^3/uL Monocytes # (Auto) 0.5 0-1.3 10 ^3/uL Eosinophils # (Auto) 0.1 0-0.8 10 ^3/uL Basophils # (Auto) 0 0-0.2 10 ^3/uL Nucleated Red Blood Cells 0.1 % Sodium Level 142 136-145 mmol/L Potassium Level 3.4 L 3.5-5.1 mmol/L Chloride Level 108 H 98-107 mmol/L Carbon Dioxide Level 26 20-31 mmol/L Anion Gap 8 5-15 Blood Urea Nitrogen 8 L 9-23 mg/dL Creatinine 0.97 0.550-1.02 mg/dL Glomerular Filtration Rate Calc 65 >90 mL/min BUN/Creatinine Ratio 8.2 L 10.0-20.0 Serum Glucose 84 74-106 mg/dL Calcium Level 9.1 8.7-10.4 mg/dL Total Bilirubin 0.4 0.2-1.0 mg/dL Aspartate Amino Transferase (AST) 29 13-40 U/L Alanine Aminotransferase (ALT) 12 7-40 U/L Alkaline Phosphatase 107 46-116 U/L Total Protein 7.1 5.7-8.2 g/dL Albumin 4.1 3.2-4.8 g/dL Test 07/02/25 06:00 07/02/25 03:37 07/02/25 03:00 Range/Units Magnesium Level 1.7 1.6-2.6 mg/dL Thyroid Stimulating Hormone (TSH) 1.23 0.55-4.78 uIU/mL Urine Color Yellow Yellow Urine Clarity Clear Clear Urine pH 6.0 5.0-9.0 Urine Specific [place] 1.020 1.001-1.035 Urine Protein Trace H Negative Urine Ketones Negative Negative Urine Blood Negative Negative /uL Urine Nitrite Negative Negative Urine Bilirubin Negative Negative Urine Urobilinogen 4 H Negative mg/dL Urine Leukocyte Esterase Trace Negative /uL Urine RBC None seen 0 - 4 /hpf Urine Microscopic WBC 1 0-5 /HPF Urine Squamous Epithelial Cells Few <5 /hpf Urine Bacteria None seen None Seen /hpf Urine Glucose Normal Normal mg/dL Hemoglobin A1c 5.6 <5.7 % A1C Lactic Acid Level 0.7 0.4-2.0 mmol/L B-Type Natriuretic Peptide 58.01 0-100 pg/mL Lipase 36 12-53 U/L Vitamin D 25-Hydroxy 29.4 L 30.0-100 ng/mL Assessment 1. Right upper quadrant abdominal pain 2. Microcytic anemia Problems(with codes): (1) Abdominal pain (2) Constipation (3) Peripheral edema Plan/Recommendation 1. Pain medication 2. Follow labs 3. Consider EGD if the symptoms persist or worsen. The patient may have gastritis or peptic ulcer disease 4. Clear liquid diet as tolerated 5. Consider further workup if symptoms persist or worsen Plan discussed with: Patient JENN LEONARD MD Jul 02, 2025 17:37
[2025-07-03] VITALS (11 sets, daily range): BP systolic 103–134; BP diastolic 66–88; PULSE 41–97; RESP 16–18; TEMP 97–98.4; O2SAT 94–100
[2025-07-03] MEDS ORDERED: PANTOPRAZOLE 40 MG/10 ML VIAL INJ IV SCH (10:00)
--- NOTE | 2025-07-03 16:56 | DVHPN2 ---
Subjective She is still having abdominal pain in epigastric area Changes from previous H/P or p: Changes Objective Vitals Vital Signs Date Time Temp Pulse Resp B/P (MAP) Pulse Ox O2 Delivery O2 Flow Rate FiO2 07/03/25 13:00 97.9 64 17 109/71 (84) 100 97.9 07/03/25 06:24 Room Air 0.0 07/03/25 06:24 21 Intake/Output Intake and Output 07/03/25 07:00 Intake Total 1294 ml Balance 1294 ml Intake Oral 1084 ml IV Total 210 ml # Voids 4 General Appearance: Alert, Oriented X3 Lungs: Clear to auscultation, Normal air movement Abdomen: Other (Epi click tenderness) Extremities: No edema Medications Current Medications Medications Dose Ordered Sig/Calista Route Start Time Stop Time Status Last Admin Dose Admin Diagnostic Test (Pha) 1 strip Q6HR 07/02/25 06:00 07/03/25 12:00 1 STRIP Insulin Human Regular Q6HR SC 07/02/25 06:00 Dextrose 50 ml UD PRN IV 07/02/25 06:00 Albuterol 2.5 mg Q4HPRN PRN NEB 07/02/25 06:00 07/02/25 06:33 2.5 MG Morphine Sulfate 1 mg Q4HP PRN IV 07/02/25 06:00 07/03/25 08:55 1 MG Ondansetron HCl 4 mg Q4HPRN PRN IV 07/02/25 06:00 Pantoprazole Sodium 40 mg BID IV 07/02/25 10:00 07/03/25 08:55 40 MG Sucralfate 1 gm TID PO 07/02/25 14:00 07/03/25 05:29 1 GM Ipratropium [place] 0.5 mg Q4HPRN PRN NEB 07/02/25 07:15 Metoclopramide HCl 10 mg Q8HPRN PRN IV 07/02/25 09:45 Hydralazine HCl 10 mg Q6HP PRN IV 07/02/25 09:45 Atenolol 25 mg BID PO 07/02/25 10:00 07/03/25 08:56 25 MG Lisinopril 5 mg DAILY PO 07/02/25 09:45 07/03/25 08:56 5 MG Iron Sucrose 110 ml @ 110 mls/hr DAILY@1200 IV 07/02/25 12:00 07/02/25 14:02 110 MLS/HR Lactulose 30 ml BIDPRN PRN PO 07/02/25 10:00 Docusate Sodium 100 mg BID PO 07/02/25 10:00 07/03/25 08:57 100 MG Laboratory Results Laboratory Tests 07/02/25 06:33 Urinalysis Test 07/02/25 03:37 Urine Color Yellow (Yellow) Urine Clarity Clear (Clear) Urine pH 6.0 (5.0-9.0) Urine Specific [place] 1.020 (1.001-1.035) Urine Protein Trace (Negative) H Urine Ketones Negative (Negative) Urine Blood Negative /uL (Negative) Urine Nitrite Negative (Negative) Urine Bilirubin Negative (Negative) Urine Urobilinogen 4 mg/dL (Negative) H Urine Leukocyte Esterase Trace /uL (Negative) Urine RBC None seen /hpf (0 - 4) Urine Microscopic WBC 1 /HPF (0-5) Urine Squamous Epithelial Cells Few /hpf (<5) Urine Bacteria None seen /hpf (None Seen) Urine Glucose Normal mg/dL (Normal) Assessment/Plan Assessment/Plan Abdominal pain Epigastric pain Hypokalemia Possible GERD versus peptic ulcer disease possibly due to NSAIDs use Cannabinoids use Chronic low back pain Type 2 diabetes COPD Microcytic hypochromic anemia Plan NPO after midnight Discussed with GI, the patient will have an EGD tomorrow Continue Protonix and Carafate Replace potassium as needed Plan discussed with: Patient Date of Service: Jul 03, 2025 Billing Provider: PEREZ VILLAFANA MD Common Visit Codes: [id number] INP/OBS CARE(HIGH) PEREZ VILLAFANA MD Jul 03, 2025 16:56
[2025-07-04] VITALS (10 sets, daily range): BP systolic 117–143; BP diastolic 64–97; PULSE 43–54; RESP 16–19; TEMP 97–98.2; O2SAT 95–100
[2025-07-04 05:30] LABS: Hematocrit 30.4 % (36.0-46.0); Hemoglobin 10.2 g/dL (12.2-16.2); Mean Corpuscular Hemoglobin 25.3 pg (28.0-32.0); Mean Corpuscular Volume 75.5 fL (80.0-100.0); Nucleated Red Blood Cells % 0.0 %
[2025-07-04 05:51] LABS: Alanine Aminotransferase 13 U/L (7-40); Alkaline Phosphatase 91 U/L (46-116); Anion Gap 6 (5-15); BUN/Creatinine Ratio 12.6 (10.0-20.0); Blood Urea Nitrogen 11 mg/dL (9-23); Carbon Dioxide 29 mmol/L (20-31); Glucose 87 mg/dL (74-106); Magnesium 1.7 mg/dL (1.6-2.6); Potassium 4.1 mmol/L (3.5-5.1); Sodium 143 mmol/L (136-145)
[2025-07-04 05:52] LABS: Albumin 3.2 g/dL (3.2-4.8); Bilirubin, Total 0.3 mg/dL (0.2-1.0); Calcium 8.6 mg/dL (8.7-10.4); Chloride 108 mmol/L (98-107); Total Protein 5.5 g/dL (5.7-8.2)
--- NOTE | 2025-07-04 09:17 | DVHDSRES ---
Discharge Summary Date of Admission Resident Creating Document: ROBB BYERS RESIDENT Jul 02, 2025 at 05:47 Labs/Diagnostic Data: Laboratory Results Test 07/04/25 05:07 07/03/25 11:47 07/02/25 13:31 07/02/25 07:50 White Blood Count 5.0 10^3/uL (4.4-10.8) Red Blood Count 4.02 10^6/uL (4.0-5.20) Hemoglobin 10.2 g/dL (12.2-16.2) Hematocrit 30.4 % (36.0-46.0) Mean Corpuscular Volume 75.5 fL (80.0-100.0) Mean Corpuscular Hemoglobin 25.3 pg (28.0-32.0) Mean Corpuscular Hemoglobin Concent 33.6 g/dL (32.0-36.0) Red Cell Distribution Width 17.2 % (11.8-14.3) Platelet Count 289 10^3/uL (140-450) Mean Platelet Volume 7.5 fL (6.9-10.8) Neutrophils (%) (Auto) 51.1 % (37.0-80.0) Lymphocytes (%) (Auto) 35.6 % (10.0-50.0) Monocytes (%) (Auto) 10.2 % (0.0-12.0) Eosinophils (%) (Auto) 2.7 % (0.0-7.0) Basophils (%) (Auto) 0.4 % (0.0-2.0) Neutrophils # (Auto) 2.6 10 ^3/uL (1.6-8.6) Lymphocytes # (Auto) 1.8 10 ^3/uL (0.4-5.4) Monocytes # (Auto) 0.5 10 ^3/uL (0-1.3) Eosinophils # (Auto) 0.1 10 ^3/uL (0-0.8) Basophils # (Auto) 0 10 ^3/uL (0-0.2) Nucleated Red Blood Cells 0.0 % Sodium Level 143 mmol/L (136-145) Potassium Level 4.1 mmol/L (3.5-5.1) Chloride Level 108 mmol/L (98-107) Carbon Dioxide Level 29 mmol/L (20-31) Anion Gap 6 (5-15) Blood Urea Nitrogen 11 mg/dL (9-23) Creatinine 0.87 mg/dL (0.550-1.02) Glomerular Filtration Rate Calc 74 mL/min (>90) BUN/Creatinine Ratio 12.6 (10.0-20.0) Serum Glucose 87 mg/dL (74-106) Calcium Level 8.6 mg/dL (8.7-10.4) Magnesium Level 1.7 mg/dL (1.6-2.6) Total Bilirubin 0.3 mg/dL (0.2-1.0) Aspartate Amino Transferase (AST) 24 U/L (13-40) Alanine Aminotransferase (ALT) 13 U/L (7-40) Alkaline Phosphatase 91 U/L (46-116) Total Protein 5.5 g/dL (5.7-8.2) Albumin 3.2 g/dL (3.2-4.8) POC Glucose 79 mg/dl (70-106) Troponin I High Sensitivity 8 ng/L (</=34) Iron Level 32 ug/dL (50-170) Total Iron Binding Capacity 375 ug/dL (250-425) Percent Iron Saturation 8.5 % (15-50) Ferritin 15.2 ng/mL (10-291) Vitamin B12 Level 126 pg/mL (211-911) Folic Acid 14.16 ng/mL (>5.38) Test 07/02/25 06:00 07/02/25 03:37 07/02/25 03:00 Thyroid Stimulating Hormone (TSH) 1.23 uIU/mL (0.55-4.78) Urine Color Yellow (Yellow) Urine Clarity Clear (Clear) Urine pH 6.0 (5.0-9.0) Urine Specific [place] 1.020 (1.001-1.035) Urine Protein Trace (Negative) Urine Ketones Negative (Negative) Urine Blood Negative /uL (Negative) Urine Nitrite Negative (Negative) Urine Bilirubin Negative (Negative) Urine Urobilinogen 4 mg/dL (Negative) Urine Leukocyte Esterase Trace /uL (Negative) Urine RBC None seen /hpf (0 - 4) Urine Microscopic WBC 1 /HPF (0-5) Urine Squamous Epithelial Cells Few /hpf (<5) Urine Bacteria None seen /hpf (None Seen) Urine Glucose Normal mg/dL (Normal) Hemoglobin A1c 5.6 % A1C (<5.7) Lactic Acid Level 0.7 mmol/L (0.4-2.0) B-Type Natriuretic Peptide 58.01 pg/mL (0-100) Lipase 36 U/L (12-53) Vitamin D 25-Hydroxy 29.4 ng/mL (30.0-100) Other Laboratory Tests 07/04/25 05:07 Brief Hx & Hospital Course: Patient is 65 years old female with past medical history of hypertension, diabetes mellitus type 2, COPD not on home oxygen, asthma, lymphedema, history of DVT, status post surgical intervention, status post IVC, rheumatoid arthritis, lymphedema, bipolar disorder came with a complaint of abdominal pain nausea and vomiting. As per patient she has been having abdominal pain, gradual onset, 10/10, sharp, intermittent, radiating to the back and flank. Patient also endorsed nausea and vomiting 7 times, no blood. On further inquiry patient reported she was taking a leave for last 1 month. Patient reported she moved from [place] and does not have a PCP that is why she was not taking her medications. Patient used to be on warfarin blood clot but does not know why she stopped taking warfarin. Patient denied any fever, diarrhea, chest pain, acute joint redness or swelling. Initial lab workup revealed hemoglobin 11.0, serum iron 32, ferritin 3.2, magnesium 1.7, hemoglobin A1c 5.6, TSH 1.23. Urinalysis negative for UTI. CT abdomen and pelvis revealed-Abdominal Wall: Mild anasarca redemonstrated Degenerative change of the spine and pelvis. L5 spondylolysis with L5-S1 spondylolisthesis. Infrarenal IVC filter. Mild atherosclerosis. Doppler study the lower extremity negative for DVT. Chest x- ray no acute cardiopulmonary abnormality.Ultrasound of the kidney negative for renal parenchymal disease. Condition at Discharge: Stable Final Diagnosis/Problems List # acute gastritis likely due to NSAIDs in use # rule out acute pancreatitis/colitis # suspected cannabinoids induced hyperemesis # intractable abdominal pain, nausea and vomiting likely due to above # iron-deficiency anemia # uncontrolled hypertension with elevated blood pressure # diabetes mellitus type 2 # bilateral leg swelling likely due to lymphedema # history of DVT bilateral lower extremity, status post IVC # bipolar disorder # rheumatoid arthritis # COPD no acute exacerbation # medication noncompliance Discharge Disposition: Home Discharge Instruct/Medications Diet: Consistent carbohydrate, Cardiac 2g Na,low cholest Follow Up/Referral: Please follow up with the primary care physician in 1 week Please follow up with the hand outside cutter in 2-3 weeks for further evaluation and care Please hold atenolol/beta chidi due to bradycardia-please do further discussion with the primary care physician for bradycardia due to beta chidi Medications: Pantoprazole 40 mg p.o. daily Sucralfate 1 g p.o. b.i.d. Bentyl po b.i.d. PRN Resume other home medications Scheduled Azithromycin (Zithromax), 500 MG PO DAILY Cephalexin (Keflex Capsule), 250 MG PO TID Docusate Sodium (Colace), 1 CAP PO BID Lisinopril (Lisinopril), 10 MG PO BS Methylprednisolone (Medrol Dosepak), 4 MG PO UD Pantoprazole Sodium Sesquihydr (Pantoprazole Sodium), 40 MG PO DAILY Sucralfate (Carafate), 1 GM PO BID Scheduled PRN Acetaminophen (Apap), 500 MG PO Q4HP PRN Albuterol Sulfate (Ventolin Mdi), 90 MCG IN Q4HP PRN Albuterol Sulfate (Albuterol Sulfate Hfa), 108 MCG IN TIDP PRN Dicyclomine Hcl (Bentyl Capsule), 2 CAP PO Q6HP PRN Ferrous Sulfate (Ferrous Sulfate), 325 MG PO DAILY PRN Hydrocodone-Acetaminophen (Hydrocodone Bitartrate/AC 5-325 mg), 1 TAB PO Q6HP PRN Lactulose (Lactulose), 20 GM PO DAILY PRN Magnesium Citrate (Magnesium Citrate), 2-4 TAB OR HS PRN Ondansetron Odt 4MG Tab (Zofran Po), 4 MG PO Q8HP PRN Discharge Statement: "Patient was advised to return to the ER or call 911 if any headaches, dizziness, shortness of breath, chest pain, abdominal pain, bleeding, fevers, or worsening of medical condition. Patient was counseled about treatment plan, medications, possible side effects, patientverbalized understanding. All questions were answered to the best of my ability. This discharge took greater then 30 minutes in planning, reviewing documentation, counseling the patient, and discussing with other team members." ASSESSMENT ASSESSMENT Assessment ROBB BYERS RESIDENT Jul 04, 2025 09:17
[2025-07-04] MEDS ORDERED: LISI10TA34 PO (09:21)
[2025-07-04] MEDS ORDERED: PANT40T PO (09:21)
[2025-07-04] MEDS ORDERED: SUCR1TAB31 PO (09:21)
[2025-07-04] MEDS ORDERED: ALBU108A5 IN (09:24)
[2025-07-04] MEDS ORDERED: LACT10SO3 PO (09:24)
[2025-07-04] MEDS ORDERED: DOCU-94 PO (09:24)
[2025-07-04] MEDS ORDERED: FER325T PO (09:24)
--- NOTE | 2025-07-04 11:16 | PRN ---
Misceleneous Note Note Note July 03, 2025 Subjective: Patient was to have EGD today however her pain has improved and she is tolerating a diet Vital Signs Date Time Temp Pulse Resp B/P (MAP) Pulse Ox O2 Delivery O2 Flow Rate FiO2 07/04/25 09:00 97.9 43 19 131/74 (93) 99 97.9 07/04/25 06:30 Room Air* 0 21 Physical exam General: Alert and oriented HEENT: NC/AT EOMI PERRLA O/P clear Abdomen: Soft, minimal tenderness to palpation, nondistended Extremity: No clubbing cyanosis or edema Impression: 1. Abdominal pain, improved, differential diagnosis includes peptic ulcer disease versus gastroenteritis versus gastritis versus other Recommendation: 1. Cancel EGD, patient may follow up as an outpatient and have an EGD if his symptoms recur 2. Diet as tolerated 3. Proton pump inhibitor daily at discharge 4. Outpatient follow up with JENN CLEMONS MD Jul 04, 2025 11:15
--- NOTE | 2025-07-04 12:29 | DVHPNRES ---
Progress Note Date Seen: Jul 04, 2025 Resident Creating Document: ROBB BYERS RESIDENT Medical Necessity Reason Pt with a Central, PICC or Fol: No Subjective Review of Systems Patient is 65 years old female with past medical history of hypertension, diabetes mellitus type 2, COPD not on home oxygen, asthma, lymphedema, history of DVT, status post surgical intervention, status post IVC, rheumatoid arthritis, lymphedema, bipolar disorder came with a complaint of abdominal pain nausea and vomiting. As per patient she has been having abdominal pain, gradual onset, 10/10, sharp, intermittent, radiating to the back and flank. Patient also endorsed nausea and vomiting 7 times, no blood. On further inquiry patient reported she was taking a leave for last 1 month. Patient reported she moved from [place] and does not have a PCP that is why she was not taking her medications. Patient used to be on warfarin blood clot but does not know why she stopped taking warfarin. Patient denied any fever, diarrhea, chest pain, acute joint redness or swelling. Initial lab workup revealed hemoglobin 11.0, serum iron 32, ferritin 3.2, magnesium 1.7, hemoglobin A1c 5.6, TSH 1.23. Urinalysis negative for UTI. CT abdomen and pelvis revealed-Abdominal Wall: Mild anasarca redemonstrated Degenerative change of the spine and pelvis. L5 spondylolysis with L5-S1 spondylolisthesis. Infrarenal IVC filter. Mild atherosclerosis. Doppler study the lower extremity negative for DVT. Chest x- ray no acute cardiopulmonary abnormality.Ultrasound of the kidney negative for renal parenchymal disease. PMH-hypertension, diabetes mellitus type 2, COPD not on home oxygen, asthma, lymphedema, history of DVT, status post surgical intervention, status post IVC, rheumatoid arthritis, lymphedema, bipolar disorde PSH- IVC placement, gastric bypass surgery, , clot removal from leg. Cholecystectomy Allergy- iodine, metformin, penicillin, seafood, sulfa antibiotic. Personal History/ Social History- 40 pack year smoking history, Occasional marijuana use FH- History of prostate cancer in father, hypertension in father and mother Patient was seen today at the bedside. Patient Cardiovascular- deny acute chest pain or shortness of breath or cough or palpitation Respiratory denies cough or short of breath or wheezing Gastrointestinal- denies any rectal bleeding, nausea or vomiting Musculoskeletal-denies acute joint swelling or tenderness or redness Neurological- denies acute dysarthria, dysphagia, change in vision Psychiatry- denies depression or SI or HI Skin- denies acute rash or purpura Patient was seen today at bedside, labs and chart reviewed. Patient on clear liquid diet. Plan is to keep patient NPO after midnight and talked to Dr. Alcocer tomorrow morning about possible EGD. Objective vital signs Vital Sign Date Time Temp Pulse Resp B/P (MAP) Pulse Ox O2 Delivery O2 Flow Rate FiO2 07/04/25 09:00 97.9 43 19 131/74 (93) 99 97.9 07/04/25 06:30 Room Air* 0 21 Total Intake and Output 07/03/25 07/03/25 07/04/25 15:00 23:00 07:00 Intake Total 950 ml 250 ml Balance 950 ml 250 ml medications Current Medications Medications Dose Ordered Sig/Calista Route Start Time Stop Time Status Last Admin Dose Admin Diagnostic Test (Pha) 1 strip Q6HR 07/02/25 06:00 07/04/25 05:33 1 STRIP Insulin Human Regular Q6HR SC 07/02/25 06:00 Dextrose 50 ml UD PRN IV 07/02/25 06:00 Albuterol 2.5 mg Q4HPRN PRN NEB 07/02/25 06:00 07/02/25 06:33 2.5 MG Morphine Sulfate 1 mg Q4HP PRN IV 07/02/25 06:00 07/04/25 03:23 1 MG Ondansetron HCl 4 mg Q4HPRN PRN IV 07/02/25 06:00 Pantoprazole Sodium 40 mg BID IV 07/02/25 10:00 07/03/25 21:56 40 MG Sucralfate 1 gm TID PO 07/02/25 14:00 07/04/25 05:33 1 GM Ipratropium Bohannon 0.5 mg Q4HPRN PRN NEB 07/02/25 07:15 Metoclopramide HCl 10 mg Q8HPRN PRN IV 07/02/25 09:45 Hydralazine HCl 10 mg Q6HP PRN IV 07/02/25 09:45 Lisinopril 5 mg DAILY PO 07/02/25 09:45 07/03/25 08:56 5 MG Iron Sucrose 110 ml @ 110 mls/hr DAILY@1200 IV 07/02/25 12:00 07/03/25 12:00 110 MLS/HR Lactulose 30 ml BIDPRN PRN PO 07/02/25 10:00 Docusate Sodium 100 mg BID PO 07/02/25 10:00 07/03/25 21:58 100 MG Examination General examination- awake, alert, oriented HEENT- PEERLA, no acute nasal discharge Cardiovascular- S1-S2 audible, rate and rhythm regular, no murmur Respiratory- CTAB, no wheeze or rhonchi Gastrointestinal-no abdominal tenderness, bowel sound+. Nondistended Musculoskeletal-no acute joint swelling or tenderness or redness Lower extremity- bilateral lower extremity edema/swelling +++ Neurological- cranial nerves intact, no acute dysarthria or dysphagia Psychiatry- denies depression or SI or HI Skin- no acute rash or purpura laboratory and microbiology Laboratory Tests 07/04/25 05:07 Test 07/04/25 05:07 Range/Units Serum Glucose 87 74-106 mg/dL Problem List/Assessment/Plan Problem List/Assessment/Plan Assessment and Plan-Patient on clear liquid diet. Plan is to keep patient NPO after midnight and talked to Dr. Alcocer tomorrow morning about possible EGD. # acute gastritis likely due to NSAIDs in use # rule out acute pancreatitis/colitis # cannabinoids induced hyperemesis # intractable abdominal pain, nausea and vomiting likely due to above -lipase 36 -CT abdomen and pelvis revealed-Abdominal Wall: Mild anasarca redemonstrated Degenerative change of the spine and pelvis. L5 spondylolysis with L5-S1 spondylolisthesis. Infrarenal IVC filter. Mild atherosclerosis -pantoprazole 40 mg IV b.i.d. -sucralfate as prescribed -NPO after midnight with the possibility of endoscopic tomorrow after talking to Dr. Alcocer. # iron-deficiency anemia -monitor CBC # sinus bradycardia likely due to beta-chidi -discontinued atenolol - # uncontrolled hypertension with elevated blood pressure -discontinued atenolol due to sinus bradycardia -continue lisinopril 5 mg p.o. daily -hydralazine p.r.n. as prescribed # diabetes mellitus type 2 -monitor blood sugar # bilateral leg swelling likely due to lymphedema # history of DVT bilateral lower extremity, status post IVC -Doppler study of the lower extremity negative for DVT -continue current conservative management # bipolar disorder -resume home medication # rheumatoid arthritis -conservative management # COPD no acute exacerbation Nebulization PRN if prescribed # medication noncompliance Goals of care, Code status ; discussed with >15 minutes PUD prophylaxis: Pantoprazole DVT prophylaxis: SCD Plan discussed with Dr. Potts, nursing staff, Total time spent on patient evaluation, chart review, assessment and plan, discussion discussion >35 minutes Plan discussed with: Patient, Other My Orders My Orders Orders - ROBB BYERS Procedure Category Date Status Time Npo (Nothing By DIET 07/05/25 Transmitted Mouth) Diet Breakfast Date of Service: Jul 04, 2025 Billing Provider: PEREZ POTTS MD Common Visit Codes: [id number] INP/OBS CARE(HIGH) ROBB BYERS Jul 04, 2025 12:29 PEREZ POTTS MD Jul 09, 2025 23:44
[2025-07-05] VITALS (9 sets, daily range): BP systolic 143–172; BP diastolic 80–107; PULSE 44–69; RESP 10–18; TEMP 97.8–98.9; O2SAT 98–100
[2025-07-05] MEDS: MAALOX PLUS or MAALOX 30 ML PO PRN (01:28)
[2025-07-05 03:32] LABS: Cannabinoid Screen, Urine Pos (NEGATIVE); Phencyclidine Screen, Urine Pos (NEGATIVE)
[2025-07-05 03:36] LABS: Amphetamine Screen, Urine Pos (NEGATIVE); Barbiturate Scree,Urine Neg (NEGATIVE); Benzodiazephine Screen, Urine Neg (NEGATIVE); Cocaine Screen, Urine Neg (NEGATIVE); Opiate Scree,Urine Neg (NEGATIVE)
[2025-07-05 08:07] LABS: Hematocrit 37.5 % (36.0-46.0); Hemoglobin 12.2 g/dL (12.2-16.2); Mean Corpuscular Hemoglobin 25.0 pg (28.0-32.0); Mean Corpuscular Volume 76.9 fL (80.0-100.0); Nucleated Red Blood Cells % 0.1 %
[2025-07-05 08:18] LABS: Anion Gap 7 (5-15); Carbon Dioxide 26 mmol/L (20-31); Potassium 4.0 mmol/L (3.5-5.1); Sodium 141 mmol/L (136-145)
[2025-07-05 08:20] LABS: Calcium 9.3 mg/dL (8.7-10.4)
[2025-07-05 08:22] LABS: INR 1.04 (0.9-1.15); Partial Thromboplastin Time 26.2 SEC (24.5-34.5); Prothrombin Time 11.0 sec (9.3-11.8)
[2025-07-05 08:23] LABS: Chloride 108 mmol/L (98-107)
[2025-07-05 08:24] LABS: BUN/Creatinine Ratio 7.9 (10.0-20.0); Glucose 77 mg/dL (74-106)
[2025-07-05 08:25] LABS: Blood Urea Nitrogen 7 mg/dL (9-23); Magnesium 1.6 mg/dL (1.6-2.6)
[2025-07-05] MEDS: hydrALAZINE HCL 20 MG/ML VL IV PRN (08:54)
[2025-07-05] MEDS ORDERED: GLYCOPYRROLATE 0.2 MG/ML 1ML VIAL ONE (11:05)
[2025-07-05] MEDS ORDERED: MIDAZOLAM HCL 2MG/2ML 2ml VIAL (1mg/ml) ONE (11:05)
[2025-07-05] MEDS ORDERED: ONDANSETRON HCL 4 MG/2 ML VIAL ONE (11:05)
[2025-07-05] MEDS ORDERED: fentaNYL CITRATE 100 MCG/2 ML VL ONE (11:05)
[2025-07-05] MEDS ORDERED: PROPOFOL 10 MG/ML 20 ML IV ONE (11:05)
[2025-07-05] MEDS ORDERED: LIDOCAINE 2% (LOCAL ANESTH.) PF 5ml SDV ONE (11:06)
[2025-07-05] MEDS ORDERED: HYDROmorphone HCL 2 MG/ML VL/or syr IV PRN (11:45)
--- NOTE | 2025-07-05 11:47 | DVHOP2 ---
Operative Report DATE OF OPERATION: 07/05/25 PROCEDURE: Upper Endoscopy with biopsy PREOPERATIVE INDICATION: The patient is a 65 -year-old female undergoing endoscopy for epigastric pain POSTOPERATIVE DIAGNOSES: 1. Patient has a Billroth II gastrojejunostomy with two medium sized anastomotic ulcers on the jejunal side of the anastomosis from which biopsies were obtained 2. There was no visible vessel no active bleeding and there were Daquan c lassification C 3. Mild gastritis of the small gastric remnant otherwise normal examination up to the efferent and afferent loop of the gastrojejunostomy PROCEDURE PERFORMED BY: Alta Alcocer GI NURSE: Adilia SCOPE: Olympus videoendoscope. ASA CLASS: 3 PREOPERATIVE MEDICATIONS: Mac sedation, Dr. Hare PROCEDURE IN DETAIL: After obtaining an informed consent, the patient was placed on left lateral decubitus position. The patient was then sedated with the above medications. A bite block was placed between her teeth. The endoscope was then passed through the oropharynx, into the esophagus, and through the stomach remnant Into the efferent and afferent loop of the gastrojejunostomy. Both the efferent and afferent loops were normal The patient did have evidence of anastomotic ulceration and the jejunal side of the gastrojejunal anastomosis This was Daquan classification C with no visible vessel no active bleeding. There were some surrounding inflammatory changes and biopsies were obtained The small gastric remnant had minimal gastritis. On retroflexion the fundus and cardia were normal. Gastric biopsies were obtained. The endoscope was then withdrawn into the distal esophagus. There was no hiatal hernia or significant esophagitis. The remaining distal and proximal esophagus and oropharynx were unremarkable The patient tolerated the procedure well without difficulty. COMPLICATIONS : None SPECIMENS: Anastomotic biopsies Gastric biopsies DISPOSITION: Transfer back to the floor Stable PLAN: 1. Await for biopsy result 2. Will place pt on Protonix 40 mg bid p.o. 3. Carafate suspension 1 g p.o. 4 times a day 4. DC aspirin NSAIDs smoking alcohol 5. Resume GI soft diet advance as tolerated 6. Outpatient follow up with me in 4-6 weeks to review results and discuss further management ALTA ALCOCER MD Jul 05, 2025 11:47
--- NOTE | 2025-07-05 12:16 | ECG ---
[facility] Test Date: 2025-07-02 Test Time: 13:16:22 Pat Name: SEAN KHAN Department: Room: [address] [place] [address] 3 Gender: F Head Nurse: QUINTIN : 1960 Requested By: SHELBY HOWE Order Number: [id number] Reading MD: Garry Garces Measurements Intervals [place] Rate: 53 P: 65 [place]: 188 QRS: 54 QRSD: 98 T: 78 QT: 489 QTc: 460 Interpretive Statements Sinus arrhythmia Probable left atrial enlargement Nonspecific T abnormalities, lateral leads Borderline ST elevation, anterior leads Baseline wander in lead(s) I,II,aVR Electronically Signed On 07-05-2025 18:47:48 PDT by Garry Garces Please click the below link to view image of tracing.
--- NOTE | 2025-07-05 12:27 | ECG ---
[facility] Test Date: 2025-07-02 Test Time: 09:37:33 Pat Name: SEAN KHAN Department: ED Room: [address] [place] [address] 3 Gender: F Door Hanger: carolyne : 1960 Requested By: SHELBY HOWE Order Number: [id number] Reading MD: Garry Garces Measurements Intervals [place] Rate: 60 P: 62 [place]: 179 QRS: 53 QRSD: 86 T: 68 QT: 463 QTc: 463 Interpretive Statements Sinus rhythm Electronically Signed On 07-05-2025 18:42:28 PDT by Garry Garces Please click the below link to view image of tracing.
[2025-07-05] MEDS: LISINOPRIL 5 MG TAB PO SCH (12:40)
[2025-07-05] MEDS: CYANOCOBALAMIN (B-12) 1000 MCG/1 ML VIAL IM ONE (12:43)
[2025-07-05] MEDS ORDERED: PANT40TA2 PO (14:28)
[2025-07-05] MEDS ORDERED: SUCR1SUS26 PO (14:28)
--- NOTE | 2025-07-05 17:34 | DVHDSRES ---
Discharge Summary Date of Admission Resident Creating Document: ELSA FRAUSTO RESIDENT Jul 02, 2025 at 05:47 Date of Discharge: Jul 04, 2025 Admitting Diagnosis # NSAID-induced gastritis # Cannabis induced hyperemesis # Microcytic Hypochromic anemia # COPD, not on acute exacerbation # History of DVT with IVC filter # Essential hypertension # Type 2 diabetes mellitus # Lymphedema # Rheumatoid arthritis # Bipolar disorder # Medication noncompliance Wounds: none Labs/Diagnostic Data: Laboratory Results Test 07/05/25 12:57 07/05/25 07:25 07/05/25 01:22 07/04/25 05:07 POC Glucose 113 mg/dl (70-106) White Blood Count 5.8 10^3/uL (4.4-10.8) Red Blood Count 4.87 10^6/uL (4.0-5.20) Hemoglobin 12.2 g/dL (12.2-16.2) Hematocrit 37.5 % (36.0-46.0) Mean Corpuscular Volume 76.9 fL (80.0-100.0) Mean Corpuscular Hemoglobin 25.0 pg (28.0-32.0) Mean Corpuscular Hemoglobin Concent 32.5 g/dL (32.0-36.0) Red Cell Distribution Width 16.7 % (11.8-14.3) Platelet Count 288 10^3/uL (140-450) Mean Platelet Volume 7.6 fL (6.9-10.8) Neutrophils (%) (Auto) 62.8 % (37.0-80.0) Lymphocytes (%) (Auto) 27.7 % (10.0-50.0) Monocytes (%) (Auto) 6.6 % (0.0-12.0) Eosinophils (%) (Auto) 2.2 % (0.0-7.0) Basophils (%) (Auto) 0.7 % (0.0-2.0) Neutrophils # (Auto) 3.6 10 ^3/uL (1.6-8.6) Lymphocytes # (Auto) 1.6 10 ^3/uL (0.4-5.4) Monocytes # (Auto) 0.4 10 ^3/uL (0-1.3) Eosinophils # (Auto) 0.1 10 ^3/uL (0-0.8) Basophils # (Auto) 0 10 ^3/uL (0-0.2) Nucleated Red Blood Cells 0.1 % Prothrombin Time 11.0 sec (9.3-11.8) Prothrombin Time INR 1.04 (0.9-1.15) Activated Partial Thromboplast Time 26.2 SEC (24.5-34.5) Sodium Level 141 mmol/L (136-145) Potassium Level 4.0 mmol/L (3.5-5.1) Chloride Level 108 mmol/L (98-107) Carbon Dioxide Level 26 mmol/L (20-31) Anion Gap 7 (5-15) Blood Urea Nitrogen 7 mg/dL (9-23) Creatinine 0.89 mg/dL (0.550-1.02) Glomerular Filtration Rate Calc 72 mL/min (>90) BUN/Creatinine Ratio 7.9 (10.0-20.0) Serum Glucose 77 mg/dL (74-106) Calcium Level 9.3 mg/dL (8.7-10.4) Magnesium Level 1.6 mg/dL (1.6-2.6) Urine Opiates Screen Neg (NEGATIVE) Urine Fentanyl Screen Neg (NEGATIVE) Urine Barbiturates Screen Neg (NEGATIVE) Urine Phencyclidine Screen Pos (NEGATIVE) Urine Amphetamines Screen Pos (NEGATIVE) Urine Benzodiazepines Screen Neg (NEGATIVE) Urine Cocaine Screen Neg (NEGATIVE) Urine Cannabinoids Screen Pos (NEGATIVE) Total Bilirubin 0.3 mg/dL (0.2-1.0) Aspartate Amino Transferase (AST) 24 U/L (13-40) Alanine Aminotransferase (ALT) 13 U/L (7-40) Alkaline Phosphatase 91 U/L (46-116) Total Protein 5.5 g/dL (5.7-8.2) Albumin 3.2 g/dL (3.2-4.8) Test 07/02/25 13:31 07/02/25 07:50 07/02/25 06:00 07/02/25 03:37 Troponin I High Sensitivity 8 ng/L (</=34) Iron Level 32 ug/dL (50-170) Total Iron Binding Capacity 375 ug/dL (250-425) Percent Iron Saturation 8.5 % (15-50) Ferritin 15.2 ng/mL (10-291) Vitamin B12 Level 126 pg/mL (211-911) Folic Acid 14.16 ng/mL (>5.38) Thyroid Stimulating Hormone (TSH) 1.23 uIU/mL (0.55-4.78) Urine Color Yellow (Yellow) Urine Clarity Clear (Clear) Urine pH 6.0 (5.0-9.0) Urine Specific [place] 1.020 (1.001-1.035) Urine Protein Trace (Negative) Urine Ketones Negative (Negative) Urine Blood Negative /uL (Negative) Urine Nitrite Negative (Negative) Urine Bilirubin Negative (Negative) Urine Urobilinogen 4 mg/dL (Negative) Urine Leukocyte Esterase Trace /uL (Negative) Urine RBC None seen /hpf (0 - 4) Urine Microscopic WBC 1 /HPF (0-5) Urine Squamous Epithelial Cells Few /hpf (<5) Urine Bacteria None seen /hpf (None Seen) Urine Glucose Normal mg/dL (Normal) Test 07/02/25 03:00 Hemoglobin A1c 5.6 % A1C (<5.7) Lactic Acid Level 0.7 mmol/L (0.4-2.0) B-Type Natriuretic Peptide 58.01 pg/mL (0-100) Lipase 36 U/L (12-53) Vitamin D 25-Hydroxy 29.4 ng/mL (30.0-100) Other Laboratory Tests 07/05/25 07:25 Brief Hx & Hospital Course: Patient is a 65-year-old female with a complex past medical history including lymphedema, type 2 diabetes mellitus, chronic obstructive pulmonary disease (COPD), asthma, hypertension, rheumatoid arthritis, bipolar disorder, and a history of deep vein thrombosis (DVT) for which an inferior vena cava (IVC) filter was placed in 2013. She presented with complaints of abdominal pain, vomiting, decreased appetite, shortness of breath, dizziness, and multiple mechanical falls. She describes the abdominal pain as sharp, rated 10 out of 10 in intensity, occurring on and off, radiating to the right flank and back, and worsening with food intake. She also reports associated constipation and notes that she has not been drinking adequate fluids over the past few days. Past Medical History (PMH): lymphedema, type 2 diabetes mellitus, chronic obstructive pulmonary disease (COPD), asthma, hypertension, rheumatoid arthritis, bipolar disorder, and a history of deep vein thrombosis Past Surgical History (PSH): Cholecystectomy, section Family history (FH): History of prostate cancer in father, hypertension in father and mother EtOH: Denies alcohol use Smoking /Vapin pack year smoking history Recreational Drugs: Occasional marijuana use Residence: Lives alone Home Medications: No home medications Allergies: Metformin, penicillin, sulfa antibiotic, seafood, iodine PCP: Dr. Lora Hospital course Patient complaint of upper abdominal pain in the epigastric region worsening with the food, CT abdomen pelvis without contrast was done which showed no acute abdominopelvic abnormality. she was started on Protonix and Carafate but as the pain continued to worsened, GI were consulted. Patient underwent upper EGD on 07/05 which showed 1.Patient has a Billroth II gastrojejunostomy with two medium sized anastomotic ulcers on the jejunal side of the anastomosis from which biopsies were obtained , 2. There was no visible vessel no active bleeding and there were Daquan classification C , 3. Mild gastritis of the small gastric remnant otherwise normal examination up to the efferent and afferent loop of the gastrojejunostomy. patient left against medical advice. Patient was currently unstable for discharge Consults/Reason for consult GI consultation for acute abdominal pain and possible gastritis Operations or Procedures Exam: CT CT AB PEL WO CON-NO ORAL OR IV History: Abdominal pain, nausea, vomiting Comparison Study: CT CT AB PEL WO CON-NO ORAL OR IV on DOS: 12/01/24, CT ABDOMEN PELVIS WITHOUT on DOS: 01/16/23, CT ABD PELVIS WO CONTRAST on DOS: 03/15/22 Technique: Multidetector spiral CT of the abdomen was performed from lung bases to pubic symphysis. Imaging was performed without IV contrast. Axial, coronal and sagittal multiplanar reformats were obtained from the axial data set by the technologist. Radiation Dose : 1. Abdomen/Pelvis: CTDIvol 9.23 mGy, DLP 549.56 mGy*cm. Findings: Evaluation of solid organs is limited due to lack of intravenous contrast use. Exam is further limited by lack of peritoneal fat. Lower Chest: No acute findings. Liver: Unremarkable. Gallbladder and Biliary Tree: Cholecystectomy change. Pancreas: Not well assessed. Spleen: Unremarkable. Adrenal Glands: Unremarkable. Kidneys/Ureters: No urinary stone or obstruction. Bladder: Grossly unremarkable for degree of distention. Pelvic Organs: Unremarkable Bowel: No evidence of wall thickening or obstruction. Redemonstrated bariatric postsurgical change of the stomach, and anastomotic sutures of the small bowel in the left lower quadrant.. The appendix is not visualized. Vasculature: Infrarenal IVC filter. Mild atherosclerosis. Lymphadenopathy: No obvious adenopathy. Peritoneum: No ascites, free air, or fluid collection. Abdominal Wall: Mild anasarca redemonstrated. Musculoskeletal: No acute findings. Degenerative change of the spine and pelvis. L5 spondylolysis with L5-S1 spondylolisthesis. IMPRESSION: 1. Limited exam. No acute abdominopelvic abnormality, evidence of urinary stone or obstruction. 2. Chronic and incidental findings without significant interval change as above. Radiation optimization: All CT scans at this facility use at least one of these dose optimization techniques: automated exposure control mA and/or kV adjustment per patient size (includes targeted exams where dose is matched to clinical indication) or iterative reconstruction. ATED BY: SARAH MONTES MD DICTATED DATE/TIME: 07/02/25318 SIGNED BY: SARAH MONTES MD SIGNED DATE/TIME: 07/02/25318 Operative Report DATE OF OPERATION: 07/05/25 PROCEDURE: Upper Endoscopy with biopsy PREOPERATIVE INDICATION: The patient is a 65 -year-old female undergoing endoscopy for epigastric pain POSTOPERATIVE DIAGNOSES: 1. Patient has a Billroth II gastrojejunostomy with two medium sized anastomotic ulcers on the jejunal side of the anastomosis from which biopsies were obtained 2. There was no visible vessel no active bleeding and there were Daquan classification C 3. Mild gastritis of the small gastric remnant otherwise normal examination up to the efferent and afferent loop of the gastrojejunostomy PROCEDURE PERFORMED BY: Alta Monk GI NURSE: Adilia SCOPE: Olympus videoendoscope. ASA CLASS: 3 PREOPERATIVE MEDICATIONS: Dr. Payam Cardoso PROCEDURE IN DETAIL: After obtaining an informed consent, the patient was placed on left lateral decubitus position. The patient was then sedated with the above medications. A bite block was placed between her teeth. The endoscope was then passed through the oropharynx, into the esophagus, and through the stomach remnant Into the efferent and afferent loop of the gastrojejunostomy. Both the efferent and afferent loops were normal The patient did have evidence of anastomotic ulceration and the jejunal side of the gastrojejunal anastomosis This was Daquan classification C with no visible vessel no active bleeding. There were some surrounding inflammatory changes and biopsies were obtained The small gastric remnant had minimal gastritis. On retroflexion the fundus and cardia were normal. Gastric biopsies were obtained. The endoscope was then withdrawn into the distal esophagus. There was no hiatal hernia or significant esophagitis. The remaining distal and proximal esophagus and oropharynx were unremarkable The patient tolerated the procedure well without difficulty. COMPLICATIONS : None SPECIMENS: Anastomotic biopsies Gastric biopsies DISPOSITION: Transfer back to the floor Stable PLAN: 1. Await for biopsy result 2. Will place pt on Protonix 40 mg bid p.o. 3. Carafate suspension 1 g p.o. 4 times a day 4. DC aspirin NSAIDs smoking alcohol 5. Resume GI soft diet advance as tolerated 6. Outpatient follow up with me in 4-6 weeks to review results and discuss further management ALTA MONK MD Jul 05, 2025 11:47 DICTATED BY:ALTA MONK MD DICTATED DATE/TIME:07/05/25 1147 ELECTRONICALLY SIGNED BY:ALTA MONK MD 07/05/25 1147 Condition at Discharge: Undetermined Final Diagnosis/Problems List Acute gastritis likely NSAID-induced cannabinoids induced hyperemesis intractable abdominal pain, nausea and vomiting likely due to above Uncontrolled hypertension Discharge Disposition: AMA Discharge Instruct/Medications Diet: Consistent carbohydrate, Cardiac 2g Na,low cholest Activity: No Restrictions, As Tolerated Follow Up/Referral: Please follow up with the primary care physician in 1 weekPlease follow up with the security ambassador in 2-3 weeks for furtherevaluation and carePlease hold atenolol/beta chidi due to bradycardia-please do furtherdiscussion with the primary care physician for bradycardia due to betablocker Medications: Pantoprazole 40 mg p.o. dailySucralfate 1 g p.o. b.i.d.Bentyl po b.i.d. PRNResume other home medications Scheduled Azithromycin (Zithromax), 500 MG PO DAILY Cephalexin (Keflex Capsule), 250 MG PO TID Docusate Sodium (Colace), 1 CAP PO BID Lisinopril (Lisinopril), 10 MG PO BS Methylprednisolone (Medrol Dosepak), 4 MG PO UD Pantoprazole Sodium Sesquihydr (Protonix), 40 MG PO BID Sucralfate (Carafate Susp), 10 ML PO QID Scheduled PRN Acetaminophen (Apap), 500 MG PO Q4HP PRN Albuterol Sulfate (Ventolin Mdi), 90 MCG IN Q4HP PRN Albuterol Sulfate (Albuterol Sulfate Hfa), 108 MCG IN TIDP PRN Dicyclomine Hcl (Bentyl Capsule), 2 CAP PO Q6HP PRN Ferrous Sulfate (Ferrous Sulfate), 325 MG PO DAILY PRN Hydrocodone-Acetaminophen (Hydrocodone Bitartrate/AC 5-325 mg), 1 TAB PO Q6HP PRN Lactulose (Lactulose), 20 GM PO DAILY PRN Magnesium Citrate (Magnesium Citrate), 2-4 TAB OR HS PRN Ondansetron Odt 4MG Tab (Zofran Po), 4 MG PO Q8HP PRN Discharge Statement: "Patient was advised to return to the ER or call 911 if any headaches, dizziness, shortness of breath, chest pain, abdominal pain, bleeding, fevers, or worsening of medical condition. Patient was counseled about treatment plan, medications, possible side effects, patientverbalized understanding. All questions were answered to the best of my ability. This discharge took greater then 30 minutes in planning, reviewing documentation, counseling the patient, and discussing with other team members." ASSESSMENT ASSESSMENT Assessment # acute gastritis likely due to NSAIDs in use# rule out acute pancreatitis/colitis# suspected cannabinoids induced hyperemesis# intractable abdominal pain, nausea and vomiting likely due to above# iron-deficiency anemia# uncontrolled hypertension with elevated blood pressure# diabetes mellitus type 2# bilateral leg swelling likely due to lymphedema# history of DVT bilateral lower extremity, status post IVC# bipolar disorder# rheumatoid arthritis # COPD no acute exacerbation# medication noncompliance Date of Service: Jul 05, 2025 Billing Provider: PEREZ VILLAFANA MD Common Visit Codes: 47561-APC/OBS DISCH DAY >30min ELSA FRAUSTO RESIDENT Jul 05, 2025 17:34 CHERIE COVARRUBIAS RESIDENT Jul 05, 2025 18:06 PEREZ VILLAFANA MD Jul 09, 2025 23:44
== END 2025-07-05 15:30 | disposition left against medical advice (07) | DRG 392 ==
LOC: ER 02:19 → OVERFLOW 05:47 → EAST 15:08
PROVIDERS: ADMIT Internal Medicine Geriatric Medicine; ATTEND Internal Medicine Geriatric Medicine
PROC: 0DB68ZX Excision of Stomach, Via Natural or Artificial Opening Endoscopic, Diagnostic (ICD-10-PCS; 2025-07-05)
PROC: 0DBA8ZX Excision of Jejunum, Via Natural or Artificial Opening Endoscopic, Diagnostic (ICD-10-PCS; principal; 2025-07-05 11:27)
DX: K29.00 Acute gastritis without bleeding (principal); K52.9 Noninfective gastroenteritis and colitis, unspecified; K59.00 Constipation, unspecified; D50.9 Iron deficiency anemia, unspecified; Z53.29 Procedure and treatment not carried out because of patient's decision for other reasons; G89.29 Other chronic pain; E87.6 Hypokalemia; E11.9 Type 2 diabetes mellitus without complications; J44.89 Other specified chronic obstructive pulmonary disease; B37.9 Candidiasis, unspecified; F31.9 Bipolar disorder, unspecified; I89.0 Lymphedema, not elsewhere classified; I10 Essential (primary) hypertension; M06.9 Rheumatoid arthritis, unspecified; F17.210 Nicotine dependence, cigarettes, uncomplicated; T39.395A Adverse effect of other nonsteroidal anti-inflammatory drugs [NSAID], initial encounter; Z88.0 Allergy status to penicillin; Z88.2 Allergy status to sulfonamides; Z79.2 Long term (current) use of antibiotics; Z79.899 Other long term (current) drug therapy; Z98.891 History of uterine scar from previous surgery; Z98.84 Bariatric surgery status; Z90.49 Acquired absence of other specified parts of digestive tract; Z86.718 Personal history of other venous thrombosis and embolism; Z91.148 Patient's other noncompliance with medication regimen for other reason; Y92.89 Other specified places as the place of occurrence of the external cause
CPT/HCPCS: 36415; 43239; 71045; 74176; 76775; 80048; 80053; 80307; 81001; 82306; 82607; 82728; 82746; 82962; 83036; 83540; 83550; 83605; 83690; 83735; 83880; 84443; 84484; 85025; 85610; 85730; 93005; 93970; 94640; 96374; 96375; G0378; J1756; J2003; J2250; J2405; J2470; J2704; Q0162

== ENCOUNTER 2025-07-09 15:02 | Inpatient (IN) | payer OTHER, MEDICAID ==
[~2025-07-09] VITALS: Ht 170.2 cm; Wt 85.1 kg
[~2025-07-09 15:02] MED LIST changes: +ALBU108A5 IN; +DOCU-94 PO; +FER325T PO; +LACT10SO3 PO; +LISI10TA34 PO; +PANT40TA2 PO; +SUCR1SUS26 PO
--- NOTE | 2025-07-09 15:15 | ED.PDOC ---
HPI (NEURO) HPI Comments 65 y.o female presents to the ED via EMS for a chief complaint of right sided weakness associated with right sided facial pain that started less than an hour ago. Patient reports she was arguing with her niece today, left the house and drove to the police station for unknown reasons. called 911 after patient explained symptoms. EMS reports on their examination, patient had a weak receptionist doctor's office to right hand/arm. Patient mentions possible hx of a TIA, althought is not all too sure. No other symptoms present Chief Complaint: Right Sided Weakness Time Seen by MD: 15:05 Primary Care Provider: DESMOND Reviewed Notes: Nurses Notes, Application Support Consultant Notes, Medications, Allergies Information Source: Patient, Emergency Med Personnel Mode of Arrival: EMS Severity: Moderate Timing: Hours Duration: Since onset Weakness Location: (R) Sided Onset: Other (during argument with niece ) Circumstances: Spontaneous Symptoms: Weakness History of: Hypertension Modifying factors: Nothing Associated Signs and Symptoms: Weakness Past Medical History PAST MEDICAL HISTORY: Asthma, COPD, Depression, DM, HTN Surgical History: Cholecystectomy, , Hernia Repair SPEAR FISHER History: No Pertinent SPEAR FISHER History Family History Family History: Reviewed,noncontributory to illness Social History Smoker: Non-Smoker Alcohol: Denies ETOH Use Drugs: Denies Drug Use Lives In: Home Constitutional: denies: chills, diaphoresis, fatigue, fever, malaise, sweats, weakness, others EENTM: denies: blurred vision, double vision, ear bleeding, ear discharge, ear drainage, ear pain, ear ringing, eye pain, eye redness, hearing loss, mouth pain, mouth swelling, nasal discharge, nose bleeding, nose congestion, nose pain, photophobia, tearing, throat pain, throat swelling, voice changes, others Respiratory: denies: cough, hemoptysis, orthopnea, SOB at rest, shortness of breath, SOB with excertion, stridor, wheezing, others Cardiovascular: denies: chest pain, dizzy spells, diaphoresis, Dyspnea on exertion, edema, irregular heart beat, left arm pain, lightheadedness, palpitations, PND, syncope, others Gastrointestinal: denies: abdomen distended, abdominal pain, blood streaked bowels, constipated, diarrhea, dysphagia, difficulty swallowing, hematemesis, melena, nausea, poor appetite, poor fluid intake, rectal bleeding, rectal pain, vomiting, others Genitourinary: denies: abnormal vagina bleeding, burning, dyspareunia, dysuria, flank pain, frequency, hematuria, incontinence, pain, , vagina discharge, urgency, others Neurological: reports: right sided weakness, others (right sided facial pain ); denies: dizziness, fainting, headache, left sided numbness, left sided weakness, numbness, paresthesia, pre-existing deficit, right sided numbness, seizure, speech problems, tingling, tremors, weakness Musculoskeletal: denies: back pain, gout, joint pain, joint swelling, muscle pain, muscle stiffness, neck pain, others Integumetry: denies: bruises, change in color, change in hair/nails, dryness, laceration, lesions, lumps, rash, wounds, others Allergic/Immunocompromised: denies: Difficulty Healing, Frequent Infections, H corie, Itching, others Hematologic/Lymphatic: denies: anemia, blood clots, easy bleeding, easy bruising, swollen glands, others Endocrine: denies: excessive hunger, excessive sweating, excessive thirst, excessive urination, flushing, intolerance to cold, intolerance to heat, unexplained weight gain, unexplained weight loss, others Psychiatric: denies: anxiety, bipolar disorder, depression, hopeless, panic disorder, schizophrenia, sleepless, suicidal, others All Other Systems: Reviewed and Negative Physical Exam General Appearance: Moderate Distress HEENT: Normal ENT Inspection, Pharynx Normal, TMs Normal Neck: Full Range of Motion, Non-Tender, Normal, Normal Inspection Respiratory: Chest Non-Tender, Lungs Clear, No Accessory Muscle Use, No Respiratory Distress, Normal Breath Sounds Cardiovascular: No Edema, No JVD, No Murmur, No Gallop, Normal Peripheral Pulses, Regular Rate/Rhythm Breast Exam: Deferred Gastrointestinal: No Organomegaly, Non Tender, No Pulsatile Mass, Normal Bowel Sounds, Soft Genitalia: Deferred Pelvic: Deferred Rectal: Deferred Extremities: No calf tenderness, Normal capillary refill, Normal inspection, Normal range of motion, Non-tender, No pedal edema Musculoskeletal : Apperance: Normal Neurologic: Motor Weakness (Right upper extremity) Cerebellar Function: NOT DONE Reflexes: NOT DONE Skin: Normal Color Peripheral Pulses: 3+ Radial (R), 3+ Radial (L) Lymphatic: No Adenopathy Was a procedure done? Was a procedure done?: No Differential Diagnosis (SZ) Seizure: Psychogenic Seizure, Anticonvulsant Withdrawl, CVA/TIA CVA: CVA, Electrolyte Imbalance, TIA General Weakness: Dehydration, Electrolyte imbalance X-Ray, Labs, Meds, VS Vital Signs Date Time Temp Pulse Resp B/P (MAP) Pulse Ox O2 Delivery O2 Flow Rate FiO2 07/09/25 15:36 92 11 98 Room Air* 0 21 07/09/25 15:36 92 11 150/103 (119) 98 07/09/25 15:09 98.9 101 15 163/107 100 98.9 Lab Test 07/09/25 16:33 Range/Units White Blood Count 7.1 4.4-10.8 10^3/uL Red Blood Count 4.38 4.0-5.20 10^6/uL Hemoglobin 10.9 L 12.2-16.2 g/dL Hematocrit 33.3 #L 36.0-46.0 % Mean Corpuscular Volume 76.0 L 80.0-100.0 fL Mean Corpuscular Hemoglobin 24.8 L 28.0-32.0 pg Mean Corpuscular Hemoglobin Concent 32.6 32.0-36.0 g/dL Red Cell Distribution Width 17.5 H 11.8-14.3 % Platelet Count 353 140-450 10^3/uL Mean Platelet Volume 7.7 6.9-10.8 fL Neutrophils (%) (Auto) 75.6 37.0-80.0 % Lymphocytes (%) (Auto) 15.8 10.0-50.0 % Monocytes (%) (Auto) 6.3 0.0-12.0 % Eosinophils (%) (Auto) 1.7 0.0-7.0 % Basophils (%) (Auto) 0.6 0.0-2.0 % Neutrophils # (Auto) 5.4 1.6-8.6 10 ^3/uL Lymphocytes # (Auto) 1.1 0.4-5.4 10 ^3/uL Monocytes # (Auto) 0.4 0-1.3 10 ^3/uL Eosinophils # (Auto) 0.1 0-0.8 10 ^3/uL Basophils # (Auto) 0 0-0.2 10 ^3/uL Nucleated Red Blood Cells 0.0 % Sodium Level Pending Potassium Level Pending Chloride Level Pending Carbon Dioxide Level Pending Anion Gap Pending Blood Urea Nitrogen Pending Creatinine Pending Glomerular Filtration Rate Calc Pending BUN/Creatinine Ratio Pending Serum Glucose Pending Calcium Level Pending Troponin I High Sensitivity Pending Patient alert. Able to answering questions. No deviation. Vitals stable. WBC within normal limits. Anemia. On examination she is weaker on the right upper extremity. Possible TIA. Was given aspirin. CT of the head reviewed does not show any acute changes. Explained to the patient. Continue monitoring. Time of 1ST Reevaluation: 15:09 Reevaluation 1ST: Unchanged Patient Education/Counseling: Diagnosis, Treatment, Prognosis Family Education/Counseling: No Family Present Departure 1 Departure Time of Disposition: 17:07 Impression: Primary Impression: TIA (transient ischemic attack) Disposition: ADMITTED INPATIENT Admit to: Med Surg Condition: Guarded Critical Care Note Critical Care Time?: No Stability Stability form required: No Heart Score Heart Score: Heart Score Response (Comments) Value History N/A 0 EKG N/A 0 Age N/A 0 Risk Factors N/A 0 Troponin N/A 0 Total 0 I personally scribed for KVNG TYLER MD ([email or web address]) on 07/09/25 at 15:15. Electronically submitted by Elen Coto ([facility]). KVNG TYLER MD Jul 09, 2025 15:15
[2025-07-09 15:36] VITALS: PULSE 92; RESP 11; O2SAT 98
--- NOTE | 2025-07-09 16:35 | DVH ---
CHEST RADIOGRAPH REASON FOR EXAM: Shortness of breath COMPARISON: XY CHEST XRAY 1 VIEW on DOS: 07/02/25, XY CHEST PORTABLE on DOS: 05/09/25, XR CHEST 1 VIEW on DOS: 07/16/24, XY CHEST PORTABLE on DOS: 06/30/24, XR CHEST 1 VIEW on DOS: 09/05/23 TECHNIQUE: One view of the chest is provided FINDINGS: The cardiomediastinal silhouette is within normal limits for technique. There is no focal a irspace disease. There is no significant pleural effusion. No acute bony abnormality is identified. IMPRESSION: No radiographic evidence of acute cardiopulmonary process.
[2025-07-09 16:59] LABS: Hematocrit 33.3 % (36.0-46.0); Hemoglobin 10.9 g/dL (12.2-16.2); Mean Corpuscular Hemoglobin 24.8 pg (28.0-32.0); Mean Corpuscular Volume 76.0 fL (80.0-100.0); Nucleated Red Blood Cells % 0.0 %
[2025-07-09 17:11] LABS: Potassium 3.7 mmol/L (3.5-5.1)
[2025-07-09 17:12] LABS: Anion Gap 8 (5-15); Calcium 9.4 mg/dL (8.7-10.4); Carbon Dioxide 29 mmol/L (20-31)
[2025-07-09 17:15] LABS: Chloride 111 mmol/L (98-107); Sodium 148 mmol/L (136-145)
--- NOTE | 2025-07-09 17:15 | DVH ---
COMPUTERIZED TOMOGRAPHY OF THE HEAD WITHOUT CONTRAST REASON FOR STUDY: right sided weakness COMPARISON: None TECHNIQUE: Helical tomographic scans were obtained through the brain. 2-D coronal and sagittal refor matted images are provided. Radiation optimization: All CT scans at this facility use at least one of these dose optimization techniques: Automated exposure control mA and/or kV adjustment per patient s ize (includes targeted exams where dose is matched to clinical indication) or iterative reconstructio n. RADIATION DOSE: CTDI: 55.46 mGy DLP: 981.93 mGy-cm FINDINGS: No suspicious intracranial hyperdensity to suggest acute blood. There is no mass effect n or midline shift. There is mild generalized volume loss with compensatory enlargement of the CSF spac es. There is no hydrocephalus. The suprasellar cistern is intact. There are scattered periventricular and deep white matter hypodensities that are most consistent with chronic microangiopathic changes. The calvarium is intact. The visualized mastoid air cells and paranasal sinuses are clear. IMPRESSION: No acute intracranial abnormality. Mild generalized volume loss with chronic small vessel ischemic change.
[2025-07-09 17:17] LABS: BUN/Creatinine Ratio 15.3 (10.0-20.0); Blood Urea Nitrogen 17 mg/dL (9-23); Glucose 83 mg/dL (74-106)
[2025-07-09 19:35] LABS: Urine Protein, UAD Negative (Negative)
[2025-07-10] VITALS (8 sets, daily range): BP systolic 120–163; BP diastolic 60–84; PULSE 59–86; RESP 12–20; TEMP 97.9–98.6; O2SAT 96–100
--- NOTE | 2025-07-10 01:29 | ECG ---
[facility] Test Date: 2025-07-10 Test Time: 01:23:16 Pat Name: SEAN KHAN Department: [facility] ED Room: 0223T Gender: F Pond Tender: JOHN : 1960 Requested By: YARIEL HECK Order Number: [id number] Reading MD: Garry Garces Measurements Intervals [place] Rate: 74 P: 55 RI: 160 QRS: 44 QRSD: 88 T: 53 QT: 414 QTc: 460 Interpretive Statements Sinus rhythm Probable left atrial enlargement Abnormal R-wave progression, early transition Electronically Signed On 07-15-2025 21:54:50 PDT by Garry Garces Please click the below link to view image of tracing.
[2025-07-10] MEDS ORDERED: DEXTROSE (50%) 50ML SYRG IV PRN (02:00)
[2025-07-10] MEDS: ATORVASTATIN 20 MG TAB PO ONE (02:06)
--- NOTE | 2025-07-10 02:38 | DVHHPRES ---
History of Present Illness Resident Creating Document: YARIEL HECK RESIDENT History of Present Illness Ms. Stoner is a 65-year-old female with prior medical history of hypertension, diabetes, unspecified arrhythmia, COPD, asthma, bipolar disorder, hyperlipidemia, lymphedema in the right leg, and history of right leg DVT, presents with chief complaint of right-sided weakness. The patient states she was having argument with her niece yesterday around 2:15 pm when she had sudden onset of right-sided facial numbness associated with right arm and leg weakness. Additionally, refers sharp pain in her right shoulder, nonradiating, 7/10 intensity, worsened by movement of shoulder. She states she had difficulty holding objects in her right hand. the patient left the home and drove to the police department, she states she had difficulty driving as her right foot was slipping off the pedal, and EMS was called at the police department. On evaluation in the ED, the patient was afebrile, tachycardic, and hypertensive. Initial labs are significant for microcytic anemia, hypernatremia, creatinine 1.11, UA without significant finding. Head CT shows no acute intracranial abnormality. Chest x-ray shows no radiographic evidence of acute cardiopulmonary process. The patient was admitted for further workup and management. Cardiovascular: HTN, hyperipidemia, Other (Unspecified arrhythmia) Pulmonary: Asthma, COPD Heme/Onc: Other (DVT) Psych: Addictions, Bipolar Musculoskeletal: Other (Lymphedema of the right leg) Endocrine: Diabetes Past Surgical History: , Other (Gastric bypass, IVC filter placement) Smoke: <1 pack per day (For over 45 years) ALCOHOL: none Drugs: Cocaine (Refers previous cocaine use for approximately 10 years, states she quit 30 years ago), Marijuana (States she smokes 1 blunt every 4 days), Other (Denies other drug use, UDS from 07/05 positive for PCP and methamphetamines) Lives: with Family Domestic Violence: Neg Review of Systems Review of Systems Constitutional: Denies weight loss, fever and chills. HEENT: Denies changes in vision and hearing. Respiratory: Denies shortness of breath and cough Cardiovascular: Denies chest discomfort or palpitations GI: Denies abdominal distention, abdominal pain, diarrhea : Denies dysuria and urinary frequency. Musculoskeletal: Refers localized shoulder pain Skin: Denies rash and pruritus. Neurological: Refers tingling sensation in right side of face, refers weakness in right arm and leg Allergies: Coded Allergies: Iodine (Verified Allergy, Unknown, 05/21/21) Metformin (Verified Allergy, Unknown, 05/21/21) Penicillins (Verified Allergy, Unknown, 05/21/21) Sulfa Antibiotics (Verified Allergy, Unknown, 05/21/21) Uncoded Allergies: SEAFOOD (Allergy, Unknown, 05/21/21) Medications Current Medications Medications Dose Ordered Sig/Calista Route Start Time Stop Time Status Last Admin Dose Admin Aspirin 81 mg DAILY PO 07/11/25 10:00 Atorvastatin Calcium 40 mg HS PO 07/10/25 22:00 Diagnostic Test (Pha) 1 strip ACHS 07/10/25 07:00 Insulin Human Regular ACHS SC 07/10/25 07:00 Dextrose 50 ml UD PRN IV 07/10/25 02:00 Exam Vital Signs Vital Signs Date Time Temp Pulse Resp B/P (MAP) Pulse Ox O2 Delivery O2 Flow Rate FiO2 07/10/25 01:30 76 16 153/80 (104) 100 07/09/25 19:30 Room Air* 0 21 07/09/25 19:30 98.1 98.1 Exam General: The patient alert and oriented in person place and time. Patient following commands HEENT: Normocephalic, atraumatic, normal reactive pupils, EOM intact, pink conjunctiva, pink moist mucous membrane, poor dentation, uvula is midline Respiratory/pulmonary: Bilateral chest expansion, no pain on palpation of chest wall, clear lungs bilaterally, vesicular murmurs present in almost all lung bunn, no associated crackles or wheezes. Cardiovascular: Normal RRR, normal S1 and S2, no murmurs Abdomen: Abdomen nondistended, normal bowel sounds, soft, there is no pain to palpation in any of the abdominal quadrants, no palpable masses. Extremities: No deformities, nonpitting edema of right leg consistent with lymphedema, pain on active and passive movement of right shoulder, normal pulses Skin: No rashes or pruritus, there is no sacral edema present at this time. Neurological: Intact cranial nerves with no focal neurologic deficits, weakness of right arm and leg. Labs/Xrays Labs Test 07/09/25 19:43 07/09/25 16:33 07/09/25 00:00 Range/Units Troponin I High Sensitivity 13 </=34 ng/L White Blood Count 7.1 4.4-10.8 10^3/uL Red Blood Count 4.38 4.0-5.20 10^6/uL Hemoglobin 10.9 L 12.2-16.2 g/dL Hematocrit 33.3 #L 36.0-46.0 % Mean Corpuscular Volume 76.0 L 80.0-100.0 fL Mean Corpuscular Hemoglobin 24.8 L 28.0-32.0 pg Mean Corpuscular Hemoglobin Concent 32.6 32.0-36.0 g/dL Red Cell Distribution Width 17.5 H 11.8-14.3 % Platelet Count 353 140-450 10^3/uL Mean Platelet Volume 7.7 6.9-10.8 fL Neutrophils (%) (Auto) 75.6 37.0-80.0 % Lymphocytes (%) (Auto) 15.8 10.0-50.0 % Monocytes (%) (Auto) 6.3 0.0-12.0 % Eosinophils (%) (Auto) 1.7 0.0-7.0 % Basophils (%) (Auto) 0.6 0.0-2.0 % Neutrophils # (Auto) 5.4 1.6-8.6 10 ^3/uL Lymphocytes # (Auto) 1.1 0.4-5.4 10 ^3/uL Monocytes # (Auto) 0.4 0-1.3 10 ^3/uL Eosinophils # (Auto) 0.1 0-0.8 10 ^3/uL Basophils # (Auto) 0 0-0.2 10 ^3/uL Nucleated Red Blood Cells 0.0 % Sodium Level 148 #H 136-145 mmol/L Potassium Level 3.7 3.5-5.1 mmol/L Chloride Level 111 H 98-107 mmol/L Carbon Dioxide Level 29 20-31 mmol/L Anion Gap 8 5-15 Blood Urea Nitrogen 17 9-23 mg/dL Creatinine 1.11 H 0.550-1.02 mg/dL Glomerular Filtration Rate Calc 55 >90 mL/min BUN/Creatinine Ratio 15.3 10.0-20.0 Serum Glucose 83 74-106 mg/dL Calcium Level 9.4 8.7-10.4 mg/dL Vitamin B12 Level 553 211-911 pg/mL Urine Color Light-yellow Yellow Urine Clarity Clear Clear Urine pH 6.0 5.0-9.0 Urine Specific [place] 1.017 1.001-1.035 Urine Protein Negative Negative Urine Ketones Negative Negative Urine Blood Negative Negative /uL Urine Nitrite Negative Negative Urine Bilirubin Negative Negative Urine Urobilinogen 2 H Negative mg/dL Urine Leukocyte Esterase 2+ Negative /uL Urine RBC 1 0 - 4 /hpf Urine Microscopic WBC 5 0-5 /HPF Urine Squamous Epithelial Cells Few <5 /hpf Urine Bacteria None seen None Seen /hpf Urine Glucose Normal Normal mg/dL SEPSIS Sepsis Screen Date sepsis recognized/suspect: Jul 09, 2025 Time Sepsis recognized/suspect: 1929 Recent Procedure: No On Antibiotic Therapy: No Respiratory Rate >20: No Heart Rate >90: No Temp<36 C (96.8 F) or >38.3 C: No SBP <90 or MAP <65 mmHG: No New Acute Mental Status Change: No Is the patient on CPAP, BIPAP,: No Physician Orders Drug Screen (07/10/25 01:12) Phosphorus (07/10/25 01:12) Thyroid Stimulating Hormone (07/10/25 01:12) Vitamin D, 25-Hydroxy (07/10/25 01:12) Hepatic Panel (07/10/25 01:12) Magnesium (07/10/25 01:12) Admit (07/10/25 01:42) Allergies (07/10/25 01:42) Code Status (07/10/25 01:42) Echo 2d Mode Cardiac Dop (07/10/25 01:42) Carotid Duplx W Color Dop (07/10/25 01:42) Condition: Stable (07/10/25 01:42) Stat Ekg For Chest Pain (07/10/25 01:42) Notify Md Of Changes From Base (07/10/25 01:42) 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 (07/10/25 01:42) Emergency Dysrhythmia Protocol (07/10/25 01:42) Rhythm Strips Once Every Shift (07/10/25 01:42) Atorvastatin (Lipitor) (07/10/25 22:00) Cardiac Diet-2gna,Lofat,Lochol (07/10/25 Breakfast) Glucose Blood (Accu-Chek Comfort Curve T (07/10/25 07:00) Insulin R (Human) (Insulin R) (07/10/25 07:00) Dextrose 50% Syringe (07/10/25 02:00) Aspirin Tablet (07/11/25 10:00) Complete Blood Count (07/10/25 04:00) Comprehensive Metabolic Panel (07/10/25 04:00) Vital Signs Date Time Temp Pulse Resp B/P (MAP) Pulse Ox O2 Delivery O2 Flow Rate FiO2 07/10/25 01:30 76 16 153/80 (104) 100 07/10/25 01:23 74 07/09/25 23:30 64 13 164/80 (108) 99 07/09/25 21:30 106 15 139/93 (108) 99 07/09/25 19:30 Room Air* 0 21 07/09/25 19:30 98.1 66 16 162/98 (119) 99 98.1 Laboratory Tests Test 07/09/25 16:33 White Blood Count 7.1 10^3/uL (4.4-10.8) Medications Medications Dose Ordered Sig/Calista Route Start Time Stop Time Status Last Admin Dose Admin Aspirin 325 mg ONCE ONCE PO 07/10/25 01:45 07/10/25 01:59 DC 07/10/25 02:06 325 MG Atorvastatin Calcium 40 mg ONCE ONCE PO 07/10/25 01:45 07/10/25 01:59 DC 07/10/25 02:06 40 MG Assessment/Plan Assessment/Plan Assessment and plan: TIA -Aspirin 325 mg p.o. once -Aspirin 81 mg p.o. daily -Atorvastatin 40 mg p.o. daily -Head CT: No acute intracranial abnormality, mild generalized volume loss with chronic small-vessel ischemic change Possible DENTON due to VMN/hemodynamically mediated, due to above - Monitor renal function - Avoid nephrotoxic drugs Microcytic anemia - Monitor H&H Mild hypernatremia Hypertension - Antihypertensives being held at this time Controlled type 2 diabetes mellitus, HB A1c 5.6 ( 07/02/2025) - mild SSI - Accu-Cheks Hyperlipidemia - atorvastatin 40 mg p.o. daily Tobacco use -I have counseled the patient on the importance of complete smoking cessation for 15 minutes. -The patient states she is interested in nicotine patches, however contraindicated due to TIA Polysubstance use -I have counseled the patient on the importance of complete substance use for 13 minutes. Right leg lymphedema Medication noncompliance - Patient states she is currently not taking any medications for her conditions Diet: Cardiac DVT prophylaxis: Lovenox 40 mg IV daily GI prophylaxis: Not indicated Case discussed with Dr. Flores Goals of care discussed with the patient for over 30 minutes. Full code. Plan discussed with: Patient, Other (Nurses) My Orders Orders - YARIEL HECK Procedure Category Date Status Time Drug Screen LAB 07/10/25 Logged 01:12 Phosphorus LAB 07/10/25 In Process 01:12 Thyroid Stimulating LAB 07/10/25 In Process Hormone 01:12 Vitamin D, 25-Hydroxy LAB 07/10/25 In Process 01:12 Hepatic Panel LAB 07/10/25 In Process 01:12 Magnesium LAB 07/10/25 In Process 01:12 Admit ADMIT 07/10/25 Transmitted 01:42 Allergies JUNIOR 07/10/25 In Process 01:42 Code Status CODE 07/10/25 Transmitted 01:42 Echo 2d Mode Cardiac US 07/10/25 Logged DOP 01:42 Carotid Duplx W Color US 07/10/25 Logged DOP 01:42 Condition: Stable [facility] 07/10/25 In Process 01:42 Stat Ekg For Chest [facility] 07/10/25 In Process Pain 01:42 Notify Of Changes [facility] 07/10/25 In Process From Base 01:42 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 Appliances Mechanic For [facility] 07/10/25 In Process 24 Hours 01:42 Emergency Dysrhythmia [facility] 07/10/25 In Process Protocol 01:42 Rhythm Strips Once [facility] 07/10/25 In Process Every Shift 01:42 Atorvastatin (Lipitor) PHA 07/10/25 In Process 22:00 Cardiac DIET 07/10/25 Transmitted Diet-2gna,Lofat,Lochol Breakfast Glucose Blood PHA 07/10/25 In Process (Accu-Chek Comfort 07:00 Insulin R (Human) PHA 07/10/25 In Process (Insulin R) 07:00 Dextrose 50% Syringe PHA 07/10/25 In Process 02:00 Aspirin Tablet PHA 07/11/25 In Process 10:00 Date of Service: Jul 10, 2025 Billing Provider: JOLIE FLORES MD Common Visit Codes: [id number] INP/OBS CARE (HIGH) Secondary Visit Codes: [id number] CARE PLAN 30 MINUTES YARIEL HECK Jul 10, 2025 02:38 CAMILA MENDOZA Jul 10, 2025 03:52
[2025-07-10] MEDS: SODIUM CHLORIDE 0.9% 500 ML IV ONE (03:00)
[2025-07-10 03:18] LABS: Alanine Aminotransferase 12.0 U/L (7-40); Albumin 4.1 g/dL (3.2-4.8); Alkaline Phosphatase 106.0 U/L (46-116); Bilirubin, Total 0.6 mg/dL (0.2-1.0); Magnesium 1.8 mg/dL (1.6-2.6); Total Protein 6.9 g/dL (5.7-8.2)
[2025-07-10 03:20] LABS: Bilirubin, Direct 0.3 mg/dL (<0.3)
[2025-07-10 05:03] LABS: Cannabinoid Screen, Urine Pos (NEGATIVE)
[2025-07-10 05:13] LABS: Amphetamine Screen, Urine Pos (NEGATIVE); Barbiturate Scree,Urine Neg (NEGATIVE); Benzodiazephine Screen, Urine Neg (NEGATIVE); Cocaine Screen, Urine Neg (NEGATIVE); Opiate Scree,Urine Neg (NEGATIVE); Phencyclidine Screen, Urine Pos (NEGATIVE)
[2025-07-10] MEDS: ENOXAPARIN SOD 40 MG/0.4 ML SYRINGE SC SCH (06:17)
[2025-07-10] MEDS: InsuLIN REG 1unit/0.01ml Soln (100units/ml) SC SCH (06:17)
[2025-07-10] MEDS: ACCU-CHEK COMFORT CURVE STRIP VI SCH (06:17)
[2025-07-10 07:24] LABS: Hematocrit 30.2 % (36.0-46.0); Hemoglobin 10.0 g/dL (12.2-16.2); Mean Corpuscular Hemoglobin 25.0 pg (28.0-32.0); Mean Corpuscular Volume 75.1 fL (80.0-100.0); Nucleated Red Blood Cells % 0.1 %
[2025-07-10 07:45] LABS: Free T4 (Free Thyroxine) 0.93 ng/dL (0.89-1.76)
[2025-07-10 07:46] LABS: Alanine Aminotransferase 10 U/L (7-40); Albumin 3.3 g/dL (3.2-4.8); Alkaline Phosphatase 88 U/L (46-116); Anion Gap 7 (5-15); BUN/Creatinine Ratio 16.0 (10.0-20.0); Bilirubin, Total 0.3 mg/dL (0.2-1.0); Blood Urea Nitrogen 13 mg/dL (9-23); Carbon Dioxide 27 mmol/L (20-31); Cholesterol 110 mg/dL (< 200); Glucose 79 mg/dL (74-106); HDL Cholesterol 51 mg/dL (40-59); Potassium 3.6 mmol/L (3.5-5.1); Sodium 143 mmol/L (136-145); Triglycerides 42 mg/dL (< 150)
[2025-07-10 07:51] LABS: Calcium 8.6 mg/dL (8.7-10.4); Chloride 109 mmol/L (98-107); Total Protein 5.7 g/dL (5.7-8.2)
--- NOTE | 2025-07-10 11:10 | DVH ---
Bilateral lower extremity venous doppler INDICATION: R/o DVT TECHNIQUE: Duplex venous sonography was performed with real-time and flow sensitive images submitted for evaluation. FINDINGS: Normal phasic venous flow. Veins are fully compressible. No filling defects. IMPRESSION: 1. No evidence of deep vein thrombosis.
--- NOTE | 2025-07-10 11:14 | DVH ---
Carotid duplex REASON FOR EXAM: TIA CLINICAL HISTORY: TIA A Carotid Duplex Study was performed. INDICATION: TIA TECHNIQUE: Sim scale, color doppler imaging and spectral analysis were performed. FINDINGS: On sim scale and color imaging there is no intimal thickening seen along the common [place] tid ateries bilaterally, extending into the carotid bulbs with moderate plaque seen in the carotid bu lbs and internal carotids. Velocities are as follows: (measured in cm/S): Right CCA 46 Left CCA 49 Right ICA 93 Left ICA 137 Right ICA/CCA 2 Left ICA/CCA 2.8 Flow in the vertebral arteries is antegrade. IMPRESSION: 1. No hemodynamically significant stenosis based on NASCET criteria
[2025-07-10] MEDS: ACETAMINOPHEN 325 MG TAB PO PRN (16:47)
[2025-07-10] MEDS: ATORVASTATIN 20 MG TAB PO SCH (22:04)
[2025-07-11] VITALS (8 sets, daily range): BP systolic 131–143; BP diastolic 74–96; PULSE 55–83; RESP 17–18; TEMP 97.3–98.3; O2SAT 97–100
--- NOTE | 2025-07-11 09:41 | DVHSR ---
APPROVED REPORT EXAM: Two-dimensional and M-mode echocardiogram with Doppler, color Doppler and Bubble Study. Blood Pressure: 120/75 mmHg INDICATION TIA RISK FACTORS Height: 5'7", Weight: 187 DIMENSIONS LVDd4.1 (3.8-5.7cm)LA (2D)4.2 (1.9-4.0cm)Aortic Root3.4 (2.0-3.7cm) LVDs2.8 (2.5-4.0cm)LA (MM) (1.9-4.0cm)Aortic Cusp Exc2.0 (1.5-2.0cm) EF (%) 60.0 (55-70%)Rt. Atrium4.6 (1.9-4.0cm)Asc. Aorta cm IVSd1.3 (0.7-1.1cm)RV (D)5.0 (1.8-2.4cm) PWd1.0 (0.7-1.1cm) Mitral Valve MitralMitral Stenosis E wave0.59m/sMV Mean GR.mmHg A wave0.90m/sMV Peak GR.mmHg E/A ratio0.72D MVAcm2 DECEL [id number] 1/2 [place] Aortic Valve Aortic ValveAortic Stenosis V11.33m/[place] Mean GR.4mmHg V21.35m/[place] Peak GR.7mmHg LVOT Diameter2.2 (1.8-2.4cm)Doppler AVA3.74cm2 AI P 1/2 Cima650.17ms Pulmonic Valve V20.82m/s Tricuspid Valve TR Velocity2.89m/s [id number] ATRIA Injection of bubbles documented no interatrial shunt. Conclusion lvef 60 % mild lvh sigmoid septum normal rv function no severe valve abnormalities noted mild aortic regurg bubble study was negative for any R to L shunting
[2025-07-11] MEDS: MORPHINE SULFATE INJ 2 MG/ml SYRG IV PRN (11:53)
--- NOTE | 2025-07-11 14:23 | DVHPN2 ---
Subjective The patient seen and examined at bedside. Still weak and numbness of right face. Reviewed: Care Plan, H&P, Labs, Medications, Previous Orders, Radiology Changes from previous H/P or p: No Changes Objective Vitals Vital Signs Date Time Temp Pulse Resp B/P (MAP) Pulse Ox O2 Delivery O2 Flow Rate FiO2 07/11/25 13:00 98.3 81 17 131/88 (102) 100 98.3 07/10/25 20:00 Room Air* 0 21 Intake/Output Intake and Output 07/11/25 06:59 Intake Total 2098 ml Balance 2098 ml Intake Oral 2098 ml # Voids 7 General Appearance: Alert, No acute distress HEENT: Atraumatic, PERRLA, EOMI, Mucous membr. moist/pink Neck: Supple Lungs: Clear to auscultation, Normal air movement Cardiovascular: Regular rate, Normal S1, Normal S2, No murmurs, Gallops, Rubs Abdomen: Normal bowel sounds, No tenderness Neuro: Cranial nerves 3-12 NL Psych/Mental Status: Mental status NL Medications Current Medications Medications Dose Ordered Sig/Calista Route Start Time Stop Time Status Last Admin Dose Admin Aspirin 81 mg DAILY PO 07/11/25 10:00 07/11/25 10:11 81 MG Atorvastatin Calcium 40 mg HS PO 07/10/25 22:00 07/10/25 22:04 40 MG Insulin Human Regular ACHS SC 07/10/25 07:00 Hold Dextrose 50 ml UD PRN IV 07/10/25 02:00 Hold Enoxaparin Sodium 40 mg DAILY SC 07/10/25 03:30 07/11/25 10:12 40 MG Acetaminophen 650 mg Q6HP PRN PO 07/10/25 16:30 07/11/25 10:18 650 MG Acetaminophen/ Hydrocodone Bitart 1 tab Q4HPRN PRN PO 07/11/25 11:15 Morphine Sulfate 1 mg Q4HP PRN IV 07/11/25 11:15 07/11/25 11:53 1 MG Laboratory Results Laboratory Tests 07/10/25 06:26 Urinalysis Test 07/09/25 00:00 Urine Color Light-yellow (Yellow) Urine Clarity Clear (Clear) Urine pH 6.0 (5.0-9.0) Urine Specific [place] 1.017 (1.001-1.035) Urine Protein Negative (Negative) Urine Ketones Negative (Negative) Urine Blood Negative /uL (Negative) Urine Nitrite Negative (Negative) Urine Bilirubin Negative (Negative) Urine Urobilinogen 2 mg/dL (Negative) H Urine Leukocyte Esterase 2+ /uL (Negative) Urine RBC 1 /hpf (0 - 4) Urine Microscopic WBC 5 /HPF (0-5) Urine Squamous Epithelial Cells Few /hpf (<5) Urine Bacteria None seen /hpf (None Seen) Urine Glucose Normal mg/dL (Normal) Labs and/or images reviewed: Labs reviewed by me Assessment/Plan Assessment/Plan TIA -Aspirin 325 mg p.o. once -Aspirin 81 mg p.o. daily -Atorvastatin 40 mg p.o. daily -Head CT: No acute intracranial abnormality, mild generalized volume loss with chronic small-vessel ischemic change Possible [place] due to VMN/hemodynamically mediated, due to above - Monitor renal function - Avoid nephrotoxic drugs Microcytic anemia - Monitor H&H Mild hypernatremia Hypertension - Antihypertensives being held at this time Controlled type 2 diabetes mellitus, HB A1c 5.6 ( 07/02/2025) - mild SSI - Accu-Cheks Hyperlipidemia - atorvastatin 40 mg p.o. daily Tobacco use -I have counseled the patient on the importance of complete smoking cessation for 15 minutes. -The patient states she is interested in nicotine patches, however contraindicated due to TIA Polysubstance use -I have counseled the patient on the importance of complete substance use for 13 minutes. Right leg lymphedema Medication noncompliance - Patient states she is currently not taking any medications for her conditions Diet: Cardiac DVT prophylaxis: Lovenox 40 mg IV daily GI prophylaxis: Not indicated Continue current management. Morphine IV for pain control [place] prn for pain control Plan discussed with: Patient My Orders Orders - GERMAINE ALBERTO MD Procedure Category Date Status Time Acetaminophen Tablet PHA 07/10/25 In Process (Tylenol Tablet) 16:30 Hydrocodone-Acet PHA 07/11/25 In Process 5/325mg Tab ([place] 11:15 Morphine Sulfate PHA 07/11/25 In Process Injection 11:15 Date of Service: Jul 11, 2025 Billing Provider: GERMAINE ALBERTO MD Common Visit Codes: [id number] INP/OBS CARE(HIGH) GERMAINE ALBERTO MD Jul 11, 2025 14:23
[2025-07-11] MEDS: HYDROcodone-ACET 5/325MG TAB PO PRN (18:28)
[2025-07-11] MEDS ORDERED: POLYETHYLENE GLYCOL 17 GM PWDR PO PRN (19:00)
[2025-07-11] MEDS: DOCUSATE SOD 100 MG CAP PO SCH (22:32)
[2025-07-12 01:00] VITALS: BP 149/86; PULSE 67; RESP 18; TEMP 98; O2SAT 98
[2025-07-12 05:00] VITALS: BP 115/74; PULSE 65; RESP 18; TEMP 98; O2SAT 96
--- NOTE | 2025-07-12 06:01 | DVHINCON2 ---
Date of service: Jul 12, 2025 Allergies: Coded Allergies: Iodine (Verified Allergy, Unknown, 05/21/21) Metformin (Verified Allergy, Unknown, 05/21/21) Penicillins (Verified Allergy, Unknown, 05/21/21) Sulfa Antibiotics (Verified Allergy, Unknown, 05/21/21) Uncoded Allergies: SEAFOOD (Allergy, Unknown, 05/21/21) Home Meds Active Scripts Sucralfate (CARAFATE SUSP) 1 Gm/10 Ml Ss, 10 ML PO QID for 30 Days, #1200 ML 0 Refills Prov:[facility] 07/05/25 Pantoprazole Sodium Sesquihydr (Protonix) 40 Mg Tab, 40 MG PO BID for 30 Days, #60 TAB 0 Refills Prov:[facility] 07/05/25 Docusate Sodium (Colace) 100 Mg Cap, 1 CAP PO BID for 30 Days, #60 CAP Prov:[facility] 07/04/25 Ferrous Sulfate (Ferrous Sulfate) 325 Mg Tab, 325 MG PO DAILY PRN for 30 Days, #30 TAB Prov:[facility] 07/04/25 Lactulose (Lactulose) 10 Gm/15 Ml Lien, 20 GM PO DAILY PRN for 7 Days, #120 ML Prov:[facility] 07/04/25 Albuterol Sulfate (Albuterol Sulfate Hfa) 108 Mcg/Act Aer, 108 MCG IN TIDP PRN, #1 AER Prov:[facility] 07/04/25 Lisinopril (Lisinopril) 10 Mg Tab, 10 MG PO BS for 30 Days, #30 TAB Prov:[facility] 07/04/25 Hydrocodone-Acetaminophen (Hydrocodone Bitartrate/AC 5-325 mg) 1 Tab Tab, 1 TAB PO Q6HP PRN, #20 TAB Prov:DANE PABLO [facility] 02/18/25 Magnesium Citrate (MAGNESIUM CITRATE) 100 Mg Tab, 2-4 TAB OR HS PRN, #30 TAB prn constipation Prov:OLINDA READ MD 12/02/24 Ondansetron Odt 4MG Tab (ZOFRAN PO) 4 Mg Tb, 4 MG PO Q8HP PRN, #30 TAB prn n/v ODT TAB-DISSOLVE IN MOUTH, THEN SWALLOW Prov:OLINDA READ MD 12/02/24 Dicyclomine Hcl (BENTYL CAPSULE) 10 Mg Cp, 2 CAP PO Q6HP PRN, #30 CAP 11 Refills prn abdominal pain Prov:OLINDA READ MD 12/02/24 Albuterol Sulfate (VENTOLIN MDI) 90 Mcg Ih, 90 MCG IN Q4HP PRN for 30 Days, #1 INH Prov:MICHEL ADAM MD 06/30/24 Methylprednisolone (Medrol Dosepak) 4 Mg Sathya, 4 MG PO UD, #21 TAB UAD Prov:MICHEL ADAM MD 06/30/24 Azithromycin (Zithromax) 500 Mg Tab, 500 MG PO DAILY for 7 Days, #7 TAB Prov:MICHEL ADAM MD 06/30/24 Cephalexin (KEFLEX CAPSULE) 250 Mg Cp, 250 MG PO TID for 5 Days, #15 TAB Prov:DANE DUMONT MD 03/15/22 Acetaminophen (Apap) 325 Mg Tab, 500 MG PO Q4HP PRN for 10 Days, #60 TAB 0 Refills Prov:LEONARD WRIGHT 10/01/21 Current Medications Current Medications Medications (Trade) Dose Ordered Sig/Calista Route PRN Reason Start Time Stop Time Status Last Admin Aspirin 81 mg DAILY PO 07/11/25 10:00 07/11/25 10:11 Acetaminophen/ Hydrocodone Bitart (Stephenson 5/325MG Tab) 1 tab Q4HPRN PRN PO MODERATE PAIN (4-6 PAIN SCALE) 07/11/25 11:15 07/11/25 22:33 Morphine Sulfate 1 mg Q4HP PRN IV SEVERE PAIN (7-10 PAIN SCALE) 07/11/25 11:15 07/11/25 11:53 Lisinopril (Zestril Tablet) 10 mg DAILY PO 07/12/25 10:00 Docusate Sodium (Colace Capsule) 100 mg BID PO 07/11/25 22:00 07/11/25 22:32 Polyethylene Glycol (Miralax 17GM Powder) 17 gm DAILYPRN PRN PO FOR CONSTIPATION 07/11/25 19:00 Vital Signs Vital Signs Date Time Temp Pulse Resp B/P (MAP) Pulse Ox O2 Delivery O2 Flow Rate FiO2 07/12/25 05:00 98.0 65 18 115/74 (88) 96 98.0 07/11/25 20:00 Room Air* 0 21 Labs/Diagnostic Data Labs Test 07/10/25 14:56 07/10/25 06:26 07/09/25 19:43 07/09/25 19:32 Range/Units POC Glucose 121 H 70-106 mg/dl White Blood Count 4.9 # 4.4-10.8 10^3/uL Red Blood Count 4.02 4.0-5.20 10^6/uL Hemoglobin 10.0 L 12.2-16.2 g/dL Hematocrit 30.2 L 36.0-46.0 % Mean Corpuscular Volume 75.1 L 80.0-100.0 fL Mean Corpuscular Hemoglobin 25.0 L 28.0-32.0 pg Mean Corpuscular Hemoglobin Concent 33.3 32.0-36.0 g/dL Red Cell Distribution Width 17.5 H 11.8-14.3 % Platelet Count 320 140-450 10^3/uL Mean Platelet Volume 7.7 6.9-10.8 fL Neutrophils (%) (Auto) 58.4 37.0-80.0 % Lymphocytes (%) (Auto) 27.9 10.0-50.0 % Monocytes (%) (Auto) 9.3 0.0-12.0 % Eosinophils (%) (Auto) 3.4 0.0-7.0 % Basophils (%) (Auto) 1.0 0.0-2.0 % Neutrophils # (Auto) 2.8 1.6-8.6 10 ^3/uL Lymphocytes # (Auto) 1.4 0.4-5.4 10 ^3/uL Monocytes # (Auto) 0.5 0-1.3 10 ^3/uL Eosinophils # (Auto) 0.2 0-0.8 10 ^3/uL Basophils # (Auto) 0 0-0.2 10 ^3/uL Nucleated Red Blood Cells 0.1 % Sodium Level 143 # 136-145 mmol/L Potassium Level 3.6 3.5-5.1 mmol/L Chloride Level 109 H 98-107 mmol/L Carbon Dioxide Level 27 20-31 mmol/L Anion Gap 7 5-15 Blood Urea Nitrogen 13 9-23 mg/dL Creatinine 0.81 0.550-1.02 mg/dL Glomerular Filtration Rate Calc 81 >90 mL/min BUN/Creatinine Ratio 16.0 10.0-20.0 Serum Glucose 79 74-106 mg/dL Calcium Level 8.6 L 8.7-10.4 mg/dL Total Bilirubin 0.3 0.2-1.0 mg/dL Aspartate Amino Transferase (AST) 21 13-40 U/L Alanine Aminotransferase (ALT) 10 7-40 U/L Alkaline Phosphatase 88 46-116 U/L Total Protein 5.7 5.7-8.2 g/dL Albumin 3.3 3.2-4.8 g/dL Triglycerides Level 42 < 150 mg/dL Cholesterol Level 110 < 200 mg/dL LDL Cholesterol 45 < 100 mg/dL HDL Cholesterol 51 40-59 mg/dL Free Thyroxine (T4) Calculated 0.93 0.89-1.76 ng/dL Total Triiodothyronine (TT3) 1.04 0.60-1.81 ng/mL Troponin I High Sensitivity 13 </=34 ng/L Thyroid Stimulating Hormone (TSH) 0.41 L 0.55-4.78 uIU/mL Urine Opiates Screen Neg NEGATIVE Urine Fentanyl Screen Neg NEGATIVE Urine Barbiturates Screen Neg NEGATIVE Urine Phencyclidine Screen Pos NEGATIVE Urine Amphetamines Screen Pos NEGATIVE Urine Benzodiazepines Screen Neg NEGATIVE Urine Cocaine Screen Neg NEGATIVE Urine Cannabinoids Screen Pos NEGATIVE Test 07/09/25 16:33 07/09/25 00:00 Range/Units Phosphorus Level 3.8 2.4-5.1 mg/dL Magnesium Level 1.8 1.6-2.6 mg/dL Direct Bilirubin 0.3 <0.3 mg/dL Vitamin B12 Level 553 211-911 pg/mL Vitamin D 25-Hydroxy 20.2 L 30.0-100 ng/mL Urine Color Light-yellow Yellow Urine Clarity Clear Clear Urine pH 6.0 5.0-9.0 Urine Specific [place] 1.017 1.001-1.035 Urine Protein Negative Negative Urine Ketones Negative Negative Urine Blood Negative Negative /uL Urine Nitrite Negative Negative Urine Bilirubin Negative Negative Urine Urobilinogen 2 H Negative mg/dL Urine Leukocyte Esterase 2+ Negative /uL Urine RBC 1 0 - 4 /hpf Urine Microscopic WBC 5 0-5 /HPF Urine Squamous Epithelial Cells Few <5 /hpf Urine Bacteria None seen None Seen /hpf Urine Glucose Normal Normal mg/dL Plan/Recommendation [facility] Note # Demographics Consult Type: General Neurology Patient Location: Inpatient First Name: Krystal Dunlap Last Name: Herbie Date of : 1960 Age: 65 Gender: Female Facility: [facility] Time of Initial Page (): 07/12/2025 05:31 First Contact with Site (): 07/12/2025 05:31 # HPI Chief Complaint: - weakness (focal) History: 65 y/o woman admitted with right sided numbness and weakness. Patient reports symptoms started 07/10. Symptoms are the same since onset. Describes tingling, numbness, and pain--involves the right face, shoulder. When asked about her arm or leg symptoms she reports her lymphedema is worse in the right leg. No thinners. No prior similar symptoms. No left sided symptoms. # Scores Time of exam and NIHSS (): 07/12/2025 05:53 Level of Consciousness 1a: [0] = Alert; keenly responsive LOC Questions 1b: [0] = Answers both questions correctly LOC Commands 1c: [0] = Performs both tasks correctly Best Gaze 2: [0] = Normal Visual 3: [0] = No visual loss Facial Palsy 4: [0] = Normal symmetrical movements Motor Arm Left 5a: [0] = No drift Motor Arm Right 5b: [1] = Drift Motor Leg Left 6a: [0] = No drift Motor Leg Right 6b: [0] = No drift Limb Ataxia 7: [0] = Absent Sensory 8: [1] = Amks-mc-famkgxse sensory loss Best Language 9: [0] = No aphasia Dysarthria 10: [0] = Normal Extinction and Inattention 11: [0] = No abnormality NIHSS Total: 2 # Data Other Labs: LDL [address]: - no bleed - per radiologist read Other Imaging: CUS: No sig stenosis ECHO: EF 60%, no shunt # Assessment Impression: - Weakness Right sided numbness/tingling/pain. Possible stroke, though pain component is atypical # Plan Thrombolytic/Intervention: NOT IV Thrombolysis or IA Intervention candidate Thrombolytic Exclusion: > 4.5 hours Intraarterial Exclusion: >24 hours, clinical exam not consistent with LVO Target Blood Pressure: SBP < 220 Labs: ESR Imaging: (urgency: routine): - MRI Brain with AND without contrast Therapy/Evaluation: - PT/OT evaluation - speech/swallow consultation Medication: - aspirin 81 mg daily Other: - If patient has any neurological deterioration please call me back immediately - LDL < 70 - permissive hypertension - telemetry monitoring Additional Recommendations: Please note this is a one-time consultation. Please call if additional recommendations requested as studies are completed. # Logistics Attestation of consult completion: The patient is located at: [facility]. Facility staff participated in the visit. I performed this telemedicine visit from my offsite office utilizing interactive 2 way audio and visual telecommunication technology at the request of the onsite inpatient provider. Total time spent in telemedicine encounter: I spent 20 minutes reviewing clinical data and/or imaging, obtaining history, examining the patient, communicating with the onsite care team, and in preparation of this report. # Demographics First Name: Krystal Dunlap Last Name: Herbie Facility: [facility] Plan discussed with: Patient CHAI HUANG MD Jul 12, 2025 06:01
[2025-07-12 08:00] VITALS: PULSE 78; RESP 18; O2SAT 98
[2025-07-12 09:00] VITALS: BP 140/90; PULSE 74; RESP 18; TEMP 98.1; O2SAT 100
[2025-07-12] MEDS: LISINOPRIL 5 MG TAB PO SCH (09:44)
--- NOTE | 2025-07-12 11:30 | DVHPN2 ---
Subjective The patient seen and examined at bedside. Still weak and numbness of right face. Reviewed: Care Plan, H&P, Labs, Medications, Previous Orders, Radiology Objective Vitals Vital Signs Date Time Temp Pulse Resp B/P (MAP) Pulse Ox O2 Delivery O2 Flow Rate FiO2 07/12/25 09:44 115/74 07/12/25 09:00 98.1 74 18 100 98.1 07/12/25 08:00 Room Air* 0 21 Intake/Output Intake and Output 07/12/25 07:00 Intake Total 1650 ml Balance 1650 ml Intake Oral 1650 ml # Voids 6 # Bowel Movements 1 General Appearance: Alert, No acute distress HEENT: Atraumatic, PERRLA, EOMI, Mucous membr. moist/pink Neck: Supple Lungs: Clear to auscultation, Normal air movement Cardiovascular: Regular rate, Normal S1, Normal S2, No murmurs, Gallops, Rubs Abdomen: Normal bowel sounds, No tenderness Neuro: Cranial nerves 3-12 NL Psych/Mental Status: Mental status NL Medications Current Medications Medications Dose Ordered Sig/Calista Route Start Time Stop Time Status Last Admin Dose Admin Aspirin 81 mg DAILY PO 07/11/25 10:00 07/12/25 09:45 81 MG Atorvastatin Calcium 40 mg HS PO 07/10/25 22:00 07/11/25 22:31 40 MG Insulin Human Regular ACHS SC 07/10/25 07:00 Hold Dextrose 50 ml UD PRN IV 07/10/25 02:00 Hold Enoxaparin Sodium 40 mg DAILY SC 07/10/25 03:30 07/12/25 09:45 40 MG Acetaminophen 650 mg Q6HP PRN PO 07/10/25 16:30 07/11/25 10:18 650 MG Acetaminophen/ Hydrocodone Bitart 1 tab Q4HPRN PRN PO 07/11/25 11:15 07/12/25 09:51 1 TAB Morphine Sulfate 1 mg Q4HP PRN IV 07/11/25 11:15 07/11/25 11:53 1 MG Lisinopril 10 mg DAILY PO 07/12/25 10:00 07/12/25 09:44 10 MG Docusate Sodium 100 mg BID PO 07/11/25 22:00 07/12/25 09:45 100 MG Polyethylene Glycol 17 gm DAILYPRN PRN PO 07/11/25 19:00 Laboratory Results Laboratory Tests 07/10/25 06:26 Urinalysis Test 07/09/25 00:00 Urine Color Light-yellow (Yellow) Urine Clarity Clear (Clear) Urine pH 6.0 (5.0-9.0) Urine Specific [place] 1.017 (1.001-1.035) Urine Protein Negative (Negative) Urine Ketones Negative (Negative) Urine Blood Negative /uL (Negative) Urine Nitrite Negative (Negative) Urine Bilirubin Negative (Negative) Urine Urobilinogen 2 mg/dL (Negative) H Urine Leukocyte Esterase 2+ /uL (Negative) Urine RBC 1 /hpf (0 - 4) Urine Microscopic WBC 5 /HPF (0-5) Urine Squamous Epithelial Cells Few /hpf (<5) Urine Bacteria None seen /hpf (None Seen) Urine Glucose Normal mg/dL (Normal) Assessment/Plan Assessment/Plan TIA -Aspirin 325 mg p.o. once -Aspirin 81 mg p.o. daily -Atorvastatin 40 mg p.o. daily -Head CT: No acute intracranial abnormality, mild generalized volume loss with chronic small-vessel ischemic change Possible DENTON due to VMN/hemodynamically mediated, due to above - Monitor renal function - Avoid nephrotoxic drugs Microcytic anemia - Monitor H&H Mild hypernatremia Hypertension - Antihypertensives being held at this time Controlled type 2 diabetes mellitus, HB A1c 5.6 ( 07/02/2025) - mild SSI - Accu-Cheks Hyperlipidemia - atorvastatin 40 mg p.o. daily Tobacco use -I have counseled the patient on the importance of complete smoking cessation for 15 minutes. -The patient states she is interested in nicotine patches, however contraindicated due to TIA Polysubstance use -I have counseled the patient on the importance of complete substance use for 13 minutes. Right leg lymphedema Medication noncompliance - Patient states she is currently not taking any medications for her conditions Diet: Cardiac DVT prophylaxis: Lovenox 40 mg IV daily GI prophylaxis: Not indicated Continue current management. Morphine IV for pain control Timewell prn for pain control My Orders Orders - GERMAINE ALBERTO MD Procedure Category Date Status Time Brain Head Wo Contrast MRI 07/11/25 Logged 18:47 * Neurology Consult CONS 07/11/25 Transmitted 18:47 Lisinopril Tablet PHA 07/12/25 In Process (Zestril Tablet) 10:00 Docusate Sodium PHA 07/11/25 In Process Capsule (Colace 22:00 Polyethylene Glycol PHA 07/11/25 In Process 17g Powder (Miralax 19:00 GERMAINE ALBERTO MD Jul 12, 2025 11:30
--- NOTE | 2025-07-12 12:46 | DVHDS2 ---
Discharge Summary Date of Admission Jul 10, 2025 at 01:42 Date of Discharge: Jul 12, 2025 Admitting Diagnosis TIA DENTON due to VMN/hemodynamically mediated Microcytic anemia Mild hypernatremia Hypertension Controlled type 2 diabetes mellitus, HB A1c 5.6 ( 07/02/2025) Hyperlipidemia Tobacco use Polysubstance use Right leg lymphedema Medication noncompliance Labs/Diagnostic Data: Laboratory Results Test 07/10/25 14:56 07/10/25 06:26 07/09/25 19:43 07/09/25 19:32 POC Glucose 121 mg/dl (70-106) White Blood Count 4.9 10^3/uL (4.4-10.8) Red Blood Count 4.02 10^6/uL (4.0-5.20) Hemoglobin 10.0 g/dL (12.2-16.2) Hematocrit 30.2 % (36.0-46.0) Mean Corpuscular Volume 75.1 fL (80.0-100.0) Mean Corpuscular Hemoglobin 25.0 pg (28.0-32.0) Mean Corpuscular Hemoglobin Concent 33.3 g/dL (32.0-36.0) Red Cell Distribution Width 17.5 % (11.8-14.3) Platelet Count 320 10^3/uL (140-450) Mean Platelet Volume 7.7 fL (6.9-10.8) Neutrophils (%) (Auto) 58.4 % (37.0-80.0) Lymphocytes (%) (Auto) 27.9 % (10.0-50.0) Monocytes (%) (Auto) 9.3 % (0.0-12.0) Eosinophils (%) (Auto) 3.4 % (0.0-7.0) Basophils (%) (Auto) 1.0 % (0.0-2.0) Neutrophils # (Auto) 2.8 10 ^3/uL (1.6-8.6) Lymphocytes # (Auto) 1.4 10 ^3/uL (0.4-5.4) Monocytes # (Auto) 0.5 10 ^3/uL (0-1.3) Eosinophils # (Auto) 0.2 10 ^3/uL (0-0.8) Basophils # (Auto) 0 10 ^3/uL (0-0.2) Nucleated Red Blood Cells 0.1 % Sodium Level 143 mmol/L (136-145) Potassium Level 3.6 mmol/L (3.5-5.1) Chloride Level 109 mmol/L (98-107) Carbon Dioxide Level 27 mmol/L (20-31) Anion Gap 7 (5-15) Blood Urea Nitrogen 13 mg/dL (9-23) Creatinine 0.81 mg/dL (0.550-1.02) Glomerular Filtration Rate Calc 81 mL/min (>90) BUN/Creatinine Ratio 16.0 (10.0-20.0) Serum Glucose 79 mg/dL (74-106) Calcium Level 8.6 mg/dL (8.7-10.4) Total Bilirubin 0.3 mg/dL (0.2-1.0) Aspartate Amino Transferase (AST) 21 U/L (13-40) Alanine Aminotransferase (ALT) 10 U/L (7-40) Alkaline Phosphatase 88 U/L (46-116) Total Protein 5.7 g/dL (5.7-8.2) Albumin 3.3 g/dL (3.2-4.8) Triglycerides Level 42 mg/dL (< 150) Cholesterol Level 110 mg/dL (< 200) LDL Cholesterol 45 mg/dL (< 100) HDL Cholesterol 51 mg/dL (40-59) Free Thyroxine (T4) Calculated 0.93 ng/dL (0.89-1.76) Total Triiodothyronine (TT3) 1.04 ng/mL (0.60-1.81) Troponin I High Sensitivity 13 ng/L (</=34) Thyroid Stimulating Hormone (TSH) 0.41 uIU/mL (0.55-4.78) Urine Opiates Screen Neg (NEGATIVE) Urine Fentanyl Screen Neg (NEGATIVE) Urine Barbiturates Screen Neg (NEGATIVE) Urine Phencyclidine Screen Pos (NEGATIVE) Urine Amphetamines Screen Pos (NEGATIVE) Urine Benzodiazepines Screen Neg (NEGATIVE) Urine Cocaine Screen Neg (NEGATIVE) Urine Cannabinoids Screen Pos (NEGATIVE) Test 07/09/25 16:33 07/09/25 00:00 Phosphorus Level 3.8 mg/dL (2.4-5.1) Magnesium Level 1.8 mg/dL (1.6-2.6) Direct Bilirubin 0.3 mg/dL (<0.3) Vitamin B12 Level 553 pg/mL (211-911) Vitamin D 25-Hydroxy 20.2 ng/mL (30.0-100) Urine Color Light-yellow (Yellow) Urine Clarity Clear (Clear) Urine pH 6.0 (5.0-9.0) Urine Specific [place] 1.017 (1.001-1.035) Urine Protein Negative (Negative) Urine Ketones Negative (Negative) Urine Blood Negative /uL (Negative) Urine Nitrite Negative (Negative) Urine Bilirubin Negative (Negative) Urine Urobilinogen 2 mg/dL (Negative) Urine Leukocyte Esterase 2+ /uL (Negative) Urine RBC 1 /hpf (0 - 4) Urine Microscopic WBC 5 /HPF (0-5) Urine Squamous Epithelial Cells Few /hpf (<5) Urine Bacteria None seen /hpf (None Seen) Urine Glucose Normal mg/dL (Normal) Other Laboratory Tests 07/10/25 06:26 Brief Hx & Hospital Course: This is a 65 years old female with past medical history hypertension, diabetes, arrhythmia, COPD, asthma, bipolar disorder, hyperlipidemia, lymphedema of the right leg and history of right DVT come into emergency department because right- sided weakness. Patient apparently had an argument with her niece one day prior to the admission and then she suddenly had a right facial numbness associated with right arm and leg weakness. Patient also had sharp pain on her right shoulder . She went to the police department and had difficulty of driving because her right foot slipped of the pedal. The police called ambulance and EMS brought her to emergency department for further evaluation. The patient was admitted. CT scan of her head showed no acute process except Mild generalized volume loss with chronic small vessel ischemic change. Subsequently the patient had MRI of the brain done which is normal except: Incompletely assessed 1.2 x 1.2 cm lobulated lesion which appears T1 hypointense and T2 hyperintense over the left posterior medial parotid gland. Differentials include the prominent parotid lymph node versus parotid lesion. Advised her to follow up with primary care physician as outpatient for further workup of this finding.. Her ultrasound right lower extremity showed no acute DVT. I am going to discharge her home today. Advised her to follow up with primary care physician 1-2 weeks. Advised her to discuss with primary care physician regarding to the parotid lymph node and had a follow up CT facial maxilla done as outpatient. Activity as tolerated. Diet per home diet. Physical exam: HEENT: Normocephalic atraumatic pupils equal react to light and accommodation. Extraocular muscles intact, conjunctiva pink, oropharynx moist, no thrush, no exudate. Lymphatic: No lymphadenopathy Cardiovascular exam: S1, S2 was heard. No murmurs, rubs, gallops Lung: Clear on auscultation bilaterally, no wheeze, rale, rhonchi. GI: Abdominal soft, nondistended, nontenderness, positive bowel sounds. Extremity: No crepitus, cyanosis, edema. Pedal pulses present bilateral. Full range of motion. Skin: Normal turgor, no rash. Psych: Alert, oriented x3. Neurology: No focal deficits, cranial nerve II to XII grossly intact. This medical document was created using an electronic medical record system with [employer] direct computerized dictation system. Although this document has been carefully reviewed, there may still be some phonetic and typographical errors. These areas are purely typographical due to imperfections of the software programs, and do not reflect any compromise in the patient's medical care. Condition at Discharge: Stable Final Diagnosis/Problems List TIA DENTON due to VMN/hemodynamically mediated Microcytic anemia Mild hypernatremia Hypertension Controlled type 2 diabetes mellitus, HB A1c 5.6 ( 07/02/2025) Hyperlipidemia Tobacco use Polysubstance use Right leg lymphedema Medication noncompliance Discharge Disposition: Home Discharge Instruct/Medications Scheduled Cephalexin (Keflex Capsule), 250 MG PO TID Docusate Sodium (Colace), 1 CAP PO BID Lisinopril (Lisinopril), 10 MG PO BS Methylprednisolone (Medrol Dosepak), 4 MG PO UD Pantoprazole Sodium Sesquihydr (Protonix), 40 MG PO BID Sucralfate (Carafate Susp), 10 ML PO QID Scheduled PRN Acetaminophen (Apap), 500 MG PO Q4HP PRN Albuterol Sulfate (Ventolin Mdi), 90 MCG IN Q4HP PRN Albuterol Sulfate (Albuterol Sulfate Hfa), 108 MCG IN TIDP PRN Dicyclomine Hcl (Bentyl Capsule), 2 CAP PO Q6HP PRN Ferrous Sulfate (Ferrous Sulfate), 325 MG PO DAILY PRN Hydrocodone-Acetaminophen (Hydrocodone Bitartrate/AC 5-325 mg), 1 TAB PO Q6HP PRN Lactulose (Lactulose), 20 GM PO DAILY PRN Magnesium Citrate (Magnesium Citrate), 2-4 TAB OR HS PRN Ondansetron Odt 4MG Tab (Zofran Po), 4 MG PO Q8HP PRN Discontinued Medications Azithromycin (Zithromax), 500 MG PO DAILY Discharge Statement: "Patient was advised to return to the ER or call 911 if any headaches, dizziness, shortness of breath, chest pain, abdominal pain, bleeding, fevers, or worsening of medical condition. Patient was counseled about treatment plan, medications, possible side effects, patientverbalized understanding. All questions were answered to the best of my ability. This discharge took greater then 30 minutes in planning, reviewing documentation, counseling the patient, and discussing with other team members." ASSESSMENT ASSESSMENT Assessment Date of Service: Jul 12, 2025 Billing Provider: GERMAINE ALBERTO MD Common Visit Codes: 16649-HZE/OBS DISCH DAY >30min GERMAINE ALBERTO MD Jul 12, 2025 12:46
[2025-07-12 13:00] VITALS: BP 138/83; PULSE 81; RESP 16; TEMP 98; O2SAT 100
--- NOTE | 2025-07-12 13:15 | DVH ---
EXAM: MRI BRAIN HEAD WO CONTRAST CLINICAL HISTORY: CVA COMPARISON: None TECHNIQUE: Multiplanar, multisequence magnetic resonance imaging of the brain was performed without intravenous contrast. FINDINGS: Mild diffuse brain atrophy. Moderate chronic small-vessel ischemic changes. No hemorrhages, masses, mass effect, midline shift, herniation cord cytotoxic edema following large v ascular territory. No intra-axial or extra-axial fluid collections. No evidence of hydrocephalus. Th e basal cisterns are patent. Visualized Vascular flow voids are maintained. The pituitary gland, sella and parasellar regions unremarkable. The cerebellar tonsils are normal po sition. The cerebellum is unremarkable. The orbits and globes unremarkable. Minimal mucoperiosteal thickening of the ethmoid air cells. Othe rwise, the remainder of the paranasal sinuses and mastoids are clear. There are No worrisome calvaria l lesions. Incompletely assessed 1.2 x 1.2 cm lobulated lesion which appears T1 hypointense and T2 hy perintense over the left posterior medial parotid gland, best seen on the sagittal T1 image 20 and pa rtially imaged in axial images. IMPRESSION: No evidence of acute intracranial abnormalities. Incompletely assessed 1.2 x 1.2 cm lobulated lesion which appears T1 hypointense and T2 hyperintense over the left posterior medial parotid gland. Differentials include the prominent parotid lymph node versus parotid lesion.
[2025-07-12 13:16] VITALS: BP 115/74; PULSE 78; TEMP 36.7
== END 2025-07-12 15:30 | disposition home or self-care (01) | DRG 69 ==
LOC: EDUNIT# 15:02 → EDBD 15:02 → ER 15:02 → OVERFLOW 07-10 01:42 → TELE-CENTR 07-10 03:03
PROVIDERS: ADMIT Internal Medicine; ATTEND Internal Medicine
DX: G45.9 Transient cerebral ischemic attack, unspecified (principal); N17.0 Acute kidney failure with tubular necrosis; E87.0 Hyperosmolality and hypernatremia; E78.5 Hyperlipidemia, unspecified; I10 Essential (primary) hypertension; D50.9 Iron deficiency anemia, unspecified; I89.0 Lymphedema, not elsewhere classified; J44.89 Other specified chronic obstructive pulmonary disease; F31.9 Bipolar disorder, unspecified; E11.9 Type 2 diabetes mellitus without complications; Z79.899 Other long term (current) drug therapy; Z90.49 Acquired absence of other specified parts of digestive tract; Z98.891 History of uterine scar from previous surgery; Z88.6 Allergy status to analgesic agent; Z88.0 Allergy status to penicillin; Z88.2 Allergy status to sulfonamides; Z91.013 Allergy to seafood; Z91.148 Patient's other noncompliance with medication regimen for other reason; Z86.718 Personal history of other venous thrombosis and embolism
CPT/HCPCS: 36415; 70450; 70551; 71045; 80048; 80053; 80061; 80076; 80307; 81001; 82306; 82607; 82962; 83735; 84100; 84439; 84443; 84480; 84484; 85025; 87081; 93005; 93306; 93886; 93970; G0378

== ENCOUNTER 2025-09-20 09:14 | Inpatient (IN) | payer OTHER, MEDICAID ==
[~2025-09-20] VITALS: Ht 152.4 cm; Wt 77.5 kg
[2025-09-20] VITALS (7 sets, daily range): BP systolic 123–137; BP diastolic 81–88; PULSE 56–98; RESP 17–19; TEMP 97.5–97.8; O2SAT 95–100
[~2025-09-20 09:14] MED LIST changes: -AZIT500T PO
--- NOTE | 2025-09-20 09:48 | ED.PDOC ---
SOB-HPI HPI Comments This is a 65-year-old female with a past medical history of hypertension, diabetes type 2, arrhythmia, COPD, asthma, bipolar disorder, hyperlipidemia, lymphedema of the right leg (for past 11 years) and history of right DVT with IVC filter, who came to the ER with flu-like symptoms. Patient reports that since yesterday she has been having body pain, sore throat, left-sided throbbing, constant chest pain radiating to her shoulder, slight shortness of breath, subjective fever, productive cough with bloody mucus and feeling of dehydration with her lips being chapped. Patient denies any chills, nausea, vomiting, GERD symptoms, recent sick contacts, travel history or any other symptoms. Chief Complaint: Flu like Time Seen by MD: 09:00 Primary Care Provider: DESMOND Dubose notes: Medications, Allergies (Penicillin, iodine, sulfa, seafood) Information Source: Patient Mode of Arrival: Ambulatory Severity: Moderate Timing: Days Duration: Since onset Context: Spontaneous Onset PE Risk Factors: None History of: Asthma, DVT/PE Prehospital treatment: None Modifying Factors: Nothing Associated Signs and Symptoms: Cough, Sore Throat Quality: Other (Throbbing) Radiation: Shoulder (L) If cough with SOB: Productive, Bloody Past Medical History PAST MEDICAL HISTORY: Asthma, COPD, Depression, DM, HTN Surgical History: Cholecystectomy, , Hernia Repair REAL 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: No 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 REAL 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 Family History Family History: Reviewed,noncontributory to illness Social History Smoker: Cigarettes, Less Than 1 Pack/Day Alcohol: Denies ETOH Use Drugs: Marijuana Lives In: Home Constitutional: reports: malaise; denies: chills, diaphoresis, fatigue, fever, sweats, weakness, others EENTM: reports: throat pain; denies: blurred vision, double vision, ear bleeding, ear discharge, ear drainage, ear pain, ear ringing, eye pain, eye redness, hearing loss, mouth pain, mouth swelling, nasal discharge, nose bleeding, nose congestion, nose pain, photophobia, tearing, throat swelling, voice changes, others Respiratory: reports: cough (Mixed with blood) Cardiovascular: reports: chest pain; denies: dizzy spells, diaphoresis, Dyspnea on exertion, edema, irregular heart beat, left arm pain, lightheadedness, palpitations, PND, syncope, others Gastrointestinal: denies: abdomen distended, abdominal pain, blood streaked bowels, constipated, diarrhea, dysphagia, difficulty swallowing, hematemesis, melena, nausea, poor appetite, poor fluid intake, rectal bleeding, rectal pain, vomiting, others Genitourinary: denies: abnormal vagina bleeding, burning, dyspareunia, dysuria, flank pain, frequency, hematuria, incontinence, pain, , vagina discharge, urgency, others Neurological: denies: dizziness, fainting, headache, left sided numbness, left sided weakness, numbness, paresthesia, pre-existing deficit, right sided numbne ss, right sided weakness, seizure, speech problems, tingling, tremors, weakness, others Musculoskeletal: denies: back pain, gout, joint pain, joint swelling, muscle pain, muscle stiffness, neck pain, others Integumetry: denies: bruises, change in color, change in hair/nails, dryness, laceration, lesions, lumps, rash, wounds, others Allergic/Immunocompromised: denies: Difficulty Healing, Frequent Infections, Hives, Itching, others Hematologic/Lymphatic: denies: anemia, blood clots, easy bleeding, easy bruising, swollen glands, others Endocrine: denies: excessive hunger, excessive sweating, excessive thirst, excessive urination, flushing, intolerance to cold, intolerance to heat, unexplained weight gain, unexplained weight loss, others Psychiatric: denies: anxiety, bipolar disorder, depression, hopeless, panic disorder, schizophrenia, sleepless, suicidal, others Physical Exam General Appearance: Normal, Other (Dehydrated, chapped lips) HEENT: Normal ENT Inspection, Other (No icterus, no pallor, patient maintains eye contact) Neck: Full Range of Motion, Non-Tender, Normal, Normal Inspection Respiratory: No Accessory Muscle Use, Rhonchi, Other (No wheezing, stridor present) Cardiovascular: No JVD, No Murmur, Regular Rate/Rhythm, Other (Tenderness on palpation of left chest) Breast Exam: Deferred Gastrointestinal: No Organomegaly, Non Tender, No Pulsatile Mass, Normal Bowel Sounds Genitalia: Deferred Pelvic: Deferred Rectal: Deferred Extremities: No calf tenderness, Other (Presents of +1 pitting edema in the right extremity up to knee) Neurologic: Alert, None Cerebellar Function: Unable to Test Reflexes: Normal Skin: Normal Color Lymphatic: Other (Cervical lymphadenopathy palpated) Was a procedure done? Was a procedure done?: No Differential Dx Differential Diagnosis: Asthma, Pneumonia, Respiratory Distress, Pharyngitis, URI X-Ray, Labs, Meds, VS Vital Signs Date Time Temp Pulse Resp B/P (MAP) Pulse Ox O2 Delivery O2 Flow Rate FiO2 09/20/25 10:35 97.7 09/20/25 10:26 97.7 70 16 103/72 (82) 95 97.7 09/20/25 10:26 70 16 95 Room Air 09/20/25 09:23 Room Air* 0 21 09/20/25 09:21 98.8 67 17 117/73 98.8 Lab Test 09/20/25 09:51 Range/Units White Blood Count 4.6 4.4-10.8 10^3/uL Red Blood Count 4.96 4.0-5.20 10^6/uL Hemoglobin 12.8 12.2-16.2 g/dL Hematocrit 40.2 36.0-46.0 % Mean Corpuscular Volume 81.1 80.0-100.0 fL Mean Corpuscular Hemoglobin 25.8 L 28.0-32.0 pg Mean Corpuscular Hemoglobin Concent 31.8 L 32.0-36.0 g/dL Red Cell Distribution Width 16.9 H 11.8-14.3 % Platelet Count 272 140-450 10^3/uL Mean Platelet Volume 7.7 6.9-10.8 fL Neutrophils (%) (Auto) 59.3 37.0-80.0 % Lymphocytes (%) (Auto) 26.2 10.0-50.0 % Monocytes (%) (Auto) 11.2 0.0-12.0 % Eosinophils (%) (Auto) 2.5 0.0-7.0 % Basophils (%) (Auto) 0.8 0.0-2.0 % Neutrophils # (Auto) 2.7 1.6-8.6 10 ^3/uL Lymphocytes # (Auto) 1.2 0.4-5.4 10 ^3/uL Monocytes # (Auto) 0.5 0-1.3 10 ^3/uL Eosinophils # (Auto) 0.1 0-0.8 10 ^3/uL Basophils # (Auto) 0 0-0.2 10 ^3/uL Nucleated Red Blood Cells 0.0 % Sodium Level 143 136-145 mmol/L Potassium Level 3.6 3.5-5.1 mmol/L Chloride Level 110 H 98-107 mmol/L Carbon Dioxide Level 26 20-31 mmol/L Anion Gap 7 5-15 Blood Urea Nitrogen 16 9-23 mg/dL Creatinine 1.18 H 0.550-1.02 mg/dL Glomerular Filtration Rate Calc 51 >90 mL/min BUN/Creatinine Ratio 13.6 10.0-20.0 Serum Glucose 93 74-106 mg/dL Calcium Level 8.8 8.7-10.4 mg/dL Current Medications Medications (Trade) Dose Ordered Sig/Calista Route Start Time Stop Time Status Last Admin Sodium Chloride 1,000 ml @ 1,000 mls/hr Q1H ONCE IV 09/20/25 09:45 09/20/25 10:44 DC 09/20/25 10:32 Acetaminophen (Tylenol Tablet) 650 mg ONCE ONCE PO 09/20/25 10:15 09/20/25 10:31 DC 09/20/25 10:35 Images Reviewed?: Images reviewed and evaluated by me Time of 1ST Reevaluation: 10:50 Reevaluation 1ST: Unchanged Patient Education/Counseling: Diagnosis, Treatment Family Education/Counseling: No Family Present Comments Patient came in with flu-like symptoms. CBC is within normal limits. BMP shows DENTON with creatinine 1.18. We gave the patient Tylenol 650 mg p.o. once. 1 L bolus IV fluid NS 0.9% was ordered and started but discontinued as Chest x-ray shows 'possible mild pulmonary vascular congestion versus viral pneumonitis'. Lactic acid and blood cultures have been ordered. Patient has been given ceftriaxone 1 g IV stat. She requires inpatient admission for further workup and management. SEPSIS Sepsis Screen Date sepsis recognized/suspect: Sep 20, 2025 Time Sepsis recognized/suspect: 919 Recent Procedure: No On Antibiotic Therapy: No Respiratory Rate >20: No Heart Rate >90: No Temp<36 C (96.8 F) or >38.3 C: No SBP <90 or MAP <65 mmHG: No New Acute Mental Status Change: No Is the patient on CPAP, BIPAP,: No Physician Orders Chest Xray 1 View (09/20/25 09:32) Lactic Acid W/ Reflex Order (09/20/25 10:50) Blood Culture (09/20/25 10:50) Vital Signs Date Time Temp Pulse Resp B/P (MAP) Pulse Ox O2 Delivery O2 Flow Rate FiO2 09/20/25 10:35 97.7 09/20/25 10:26 97.7 70 16 103/72 (82) 95 97.7 09/20/25 10:26 70 16 95 Room Air 09/20/25 09:23 Room Air* 0 21 09/20/25 09:21 98.8 67 17 117/73 98.8 Laboratory Tests Test 09/20/25 09:51 White Blood Count 4.6 10^3/uL (4.4-10.8) Medications Medications Dose Ordered Sig/Calista Route Start Time Stop Time Status Last Admin Dose Admin Acetaminophen 650 mg ONCE ONCE PO 09/20/25 10:15 09/20/25 10:31 DC 09/20/25 10:35 Sodium Chloride 1,000 ml @ 1,000 mls/hr Q1H ONCE IV 09/20/25 09:45 09/20/25 10:44 DC 09/20/25 10:32 Departure 1 Departure Time of Disposition: 10:55 Impression: Primary Impression: Acute respiratory distress Additional Impression: DENTON (acute kidney injury) Disposition: 09 ADMITTED INPATIENT Admit to: Med Surg Condition: Unstable Critical Care Note Critical Care Time?: No Stability Stability form required: No Heart Score Heart Score: Heart Score Response (Comments) Value History Slightly Suspicious 0 EKG N/A 0 Age >65 2 Risk Factors No known risk factors 0 Troponin N/A 0 Total 2 ARLENE CANSECO RESIDENT Sep 20, 2025 09:48
--- NOTE | 2025-09-20 10:04 | DVH ---
CHEST RADIOGRAPH Indication: sob Technique: Single frontal view of the chest was obtained COMPARISON: XY CHEST PORTABLE on DOS: 07/09/25, XY CHEST XRAY 1 VIEW on DOS: 07/02/25, XY CHEST PORTABLE on DOS: 05/09/25, XR CHEST 1 VIEW on DOS: 07/16/24, XY CHEST PORTABLE on DOS: 06/30/24 FINDINGS: Lines and Tubes: None Lungs: Mild diffuse increased interstitial prominence. Pleura: No effusion. No pneumothorax. Cardiomediastinal contours: Unremarkable Bones: Unremarkable IMPRESSION: Possible mild pulmonary vascular congestion versus viral pneumonitis.
[2025-09-20 10:23] LABS: Potassium 3.6 mmol/L (3.5-5.1); Sodium 143 mmol/L (136-145)
[2025-09-20 10:24] LABS: Anion Gap 7 (5-15); Carbon Dioxide 26 mmol/L (20-31)
[2025-09-20 10:25] LABS: Calcium 8.8 mg/dL (8.7-10.4)
[2025-09-20 10:27] LABS: Chloride 110 mmol/L (98-107)
[2025-09-20 10:28] LABS: Hematocrit 40.2 % (36.0-46.0); Hemoglobin 12.8 g/dL (12.2-16.2); Mean Corpuscular Hemoglobin 25.8 pg (28.0-32.0); Mean Corpuscular Volume 81.1 fL (80.0-100.0); Nucleated Red Blood Cells % 0.0 %
[2025-09-20 10:29] LABS: Glucose 93 mg/dL (74-106)
[2025-09-20 10:30] LABS: BUN/Creatinine Ratio 13.6 (10.0-20.0); Blood Urea Nitrogen 16 mg/dL (9-23)
[2025-09-20] MEDS: SODIUM CHLORIDE 0.9% 1,000 ML IV ONE (10:32)
[2025-09-20] MEDS: ACETAMINOPHEN 325 MG TAB PO ONE (10:35)
--- NOTE | 2025-09-20 12:12 | DVHHPRES ---
History of Present Illness Resident Creating Document: ANA M ARNOLD RESIDENT History of Present Illness 65-year-old female with past medical history of asthma/COPD, lymphedema, diabetes mellitus two, TIA, DVT status post IVC filter, peptic ulcer disease, anemia, lymphedema, rheumatoid arthritis, bipolar disease, presented with complaints of flu-like symptoms since yesterday. Patient mentioned that she has been having fever, nausea, chills since one day which is associated with epigastric pain, cough. She also complaints of chest pain which is on the left side going to back, pressure-like sensation, increased on deep inspiration, increased on lying flat. She mentioned that she has been having cough since yesterday with blood in the sputum. (almost 10 episodes of blood in sputum). She denied any headache, dizziness, vomiting, constipation, diarrhea. 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 Social history Patient is an active smoker, smokes for 20 years, Smokes marijuana every day, denied alcohol or any other drug intake Family history Heart issues in father in 80s Hypertension in sister and mother Brain aneurysm in sister Allergic history Iodine Penicillin Sulfa drugs Shellfish Metformin, seafood Review of Systems Review of Systems As described in the HPI Allergies: Coded Allergies: Iodine (Verified Allergy, Unknown, 05/21/21) Metformin (Verified Allergy, Unknown, 05/21/21) Penicillins (Verified Allergy, Unknown, 05/21/21) Sulfa Antibiotics (Verified Allergy, Unknown, 05/21/21) Uncoded Allergies: SEAFOOD (Allergy, Unknown, 05/21/21) Medications Current Medications Medications Dose Ordered Sig/Calista Route Start Time Stop Time Status Last Admin Dose Admin Morphine Sulfate 2 mg Q30M PRN IV 09/20/25 12:15 UNV Nitroglycerin 0.4 mg Q5MINP PRN SL 09/20/25 12:15 UNV Exam Vital Signs Vital Signs Date Time Temp Pulse Resp B/P (MAP) Pulse Ox O2 Delivery O2 Flow Rate FiO2 09/20/25 10:35 97.7 12/8/25 10:26 70 16 103/72 (82) 95 09/20/25 10:26 Room Air 09/20/25 09:23 0 21 Exam Examination General Appearance: Alert, Oriented X3, Cooperative, No acute distress HEENT: EOMI Respiratory: Clear to auscultation, Normal air movement, no crackles no wheezing Cardiovascular: Regular rate, Normal S1, Normal S2 Abdominal: Normal bowel sounds Extremities: Right leg swelling, No cyanosis, No edema, Normal pulses, No tenderness Skin: No rashes, No breakdown Neuro: Normal speech and tone Labs/Xrays Labs Test 09/20/25 11:15 09/20/25 09:51 Range/Units Lactic Acid Level 1.2 0.4-2.0 mmol/L White Blood Count 4.6 4.4-10.8 10^3/uL Red Blood Count 4.96 4.0-5.20 10^6/uL Hemoglobin 12.8 12.2-16.2 g/dL Hematocrit 40.2 36.0-46.0 % Mean Corpuscular Volume 81.1 80.0-100.0 fL Mean Corpuscular Hemoglobin 25.8 L 28.0-32.0 pg Mean Corpuscular Hemoglobin Concent 31.8 L 32.0-36.0 g/dL Red Cell Distribution Width 16.9 H 11.8-14.3 % Platelet Count 272 140-450 10^3/uL Mean Platelet Volume 7.7 6.9-10.8 fL Neutrophils (%) (Auto) 59.3 37.0-80.0 % Lymphocytes (%) (Auto) 26.2 10.0-50.0 % Monocytes (%) (Auto) 11.2 0.0-12.0 % Eosinophils (%) (Auto) 2.5 0.0-7.0 % Basophils (%) (Auto) 0.8 0.0-2.0 % Neutrophils # (Auto) 2.7 1.6-8.6 10 ^3/uL Lymphocytes # (Auto) 1.2 0.4-5.4 10 ^3/uL Monocytes # (Auto) 0.5 0-1.3 10 ^3/uL Eosinophils # (Auto) 0.1 0-0.8 10 ^3/uL Basophils # (Auto) 0 0-0.2 10 ^3/uL Nucleated Red Blood Cells 0.0 % Sodium Level 143 136-145 mmol/L Potassium Level 3.6 3.5-5.1 mmol/L Chloride Level 110 H 98-107 mmol/L Carbon Dioxide Level 26 20-31 mmol/L Anion Gap 7 5-15 Blood Urea Nitrogen 16 9-23 mg/dL Creatinine 1.18 H 0.550-1.02 mg/dL Glomerular Filtration Rate Calc 51 >90 mL/min BUN/Creatinine Ratio 13.6 10.0-20.0 Serum Glucose 93 74-106 mg/dL Calcium Level 8.8 8.7-10.4 mg/dL SEPSIS Sepsis Screen Date sepsis recognized/suspect: Sep 20, 2025 Time Sepsis recognized/suspect: 919 Recent Procedure: No On Antibiotic Therapy: No Respiratory Rate >20: No Heart Rate >90: No Temp<36 C (96.8 F) or >38.3 C: No SBP <90 or MAP <65 mmHG: No New Acute Mental Status Change: No Is the patient on CPAP, BIPAP,: No Physician Orders Chest Xray 1 View (09/20/25 09:32) Blood Culture (09/20/25 10:50) Admit (09/20/25 12:02) Allergies (09/20/25 12:02) Code Status (09/20/25 12:02) Complete Blood Count (09/21/25 04:00) Comprehensive Metabolic Panel (09/21/25 04:00) Cardiac Diet-2gna,Lofat,Lochol (09/20/25 Lunch) Oxygen By Nasal Cannula (09/20/25 12:02) Stat Ekg For Chest Pain (09/20/25 12:02) Notify Md Of Changes From Base (09/20/25 12:02) Char Filter Operator Helper For 24 Hours (09/20/25 12:02) Emergency Dysrhythmia Protocol (09/20/25 12:02) Rhythm Strips Once Every Shift (09/20/25 12:02) Morphine Sulfate Injection (09/20/25 12:15) Nitroglycerin Sublingual (Ntrostat Subli (09/20/25 12:15) Electrocardigram (09/20/25 12:02) Troponin-I Hs (09/20/25 12:02) B-Type Natriuretic Peptide (09/20/25 12:02) D-Dimer (09/20/25 12:02) Troponin-I Hs (09/20/25 13:02) Troponin-I Hs (09/20/25 15:02) Urinalysis (09/20/25 12:02) Covid19 Antigen [place] (09/20/25 ) Rapid Influenza A&B (09/20/25 12:02) Mrsa Screen (09/20/25 12:02) Hepatic Panel (09/20/25 12:02) Drug Screen (09/20/25 12:02) Vital Signs Date Time Temp Pulse Resp B/P (MAP) Pulse Ox O2 Delivery O2 Flow Rate FiO2 09/20/25 10:35 97.7 09/20/25 10:26 97.7 70 16 103/72 (82) 95 97.7 09/20/25 10:26 70 16 95 Room Air 09/20/25 09:23 Room Air* 0 21 09/20/25 09:21 98.8 67 17 117/73 98.8 Laboratory Tests Test 09/20/25 09:51 09/20/25 11:15 White Blood Count 4.6 10^3/uL (4.4-10.8) Lactic Acid Level 1.2 mmol/L (0.4-2.0) Medications Medications Dose Ordered Sig/Calista Route Start Time Stop Time Status Last Admin Dose Admin Acetaminophen 650 mg ONCE ONCE PO 09/20/25 10:15 09/20/25 10:31 DC 09/20/25 10:35 650 MG Ceftriaxone Sodium 50 ml @ 100 mls/hr ONCE ONCE IV 09/20/25 11:15 09/20/25 11:44 DC 09/20/25 11:34 100 MLS/HR Sodium Chloride 1,000 ml @ 1,000 mls/hr Q1H ONCE IV 09/20/25 09:45 09/20/25 11:13 DC 09/20/25 10:32 1,000 MLS/HR Assessment/Plan Assessment/Plan Assessment/plan # chest pain, rule out ACS, likely pleuritic because of pneumonia # CAP gram +/- -EKG Tropes BNP D-dimer DVT study -IV antibiotics, ceftriaxone plus Flagyl -MRSA screen # DENTON likely due to VMN -IV fluids -monitor BMP #asthma/COPD -albuterol and ipratropium p.r.n. #lymphedema right leg -POA #diabetes mellitus two -sliding scale insulin # TIA -resume home meds #DVT status post IVC filter -resume home meds #peptic ulcer disease -protonix and sucralfated #history of lymphedema # ?history of rheumatoid arthritis # History of bipolar disease -resume home meds Code status discussed with the patient for greater than 21 minutes, full code Case discussion with Dr. Aguilar Plan discussed with: Patient, Other My Orders Orders - ANA M ARNOLD RESIDENT Procedure Category Date Status Time Admit ADMIT 09/20/25 Transmitted 12:02 Allergies JUNIOR 09/20/25 In Process 12:02 Code Status CODE 09/20/25 Transmitted 12:02 Complete Blood Count LAB 09/21/25 Verified 04:00 Comprehensive LAB 09/21/25 Verified Metabolic Panel 04:00 Cardiac DIET 09/20/25 Transmitted Diet-2gna,Lofat,Lochol Lunch Oxygen By Nasal RT 09/20/25 Transmitted Cannula 12:02 Stat Ekg For Chest JUNIOR 09/20/25 In Process Pain 12:02 Notify Of Changes JUNIOR 09/20/25 In Process From Base 12:02 Char Filter Operator Helper For JUNIOR 09/20/25 In Process 24 Hours 12:02 Emergency Dysrhythmia JUNIOR 09/20/25 In Process Protocol 12:02 Rhythm Strips Once JUNIOR 09/20/25 In Process Every Shift 12:02 Morphine Sulfate PHA 09/20/25 Logged Injection 12:15 Nitroglycerin PHA 09/20/25 Logged Sublingual (Ntrostat 12:15 Electrocardigram EKG 09/20/25 Logged 12:02 Troponin-I Hs LAB 09/20/25 Logged 12:02 B-Type Natriuretic LAB 09/20/25 Logged Peptide 12:02 D-Dimer LAB 09/20/25 Logged 12:02 Troponin-I Hs LAB 09/20/25 Logged 13:02 Troponin-I Hs LAB 09/20/25 Logged 15:02 Urinalysis LAB 09/20/25 Logged 12:02 Covid19 Antigen [place] LAB 09/20/25 Logged Rapid Influenza A&B LAB 09/20/25 Logged 12:[address] 09/20/25 Logged 12:02 Hepatic Panel LAB 09/20/25 Logged 12:02 Drug Screen LAB 09/20/25 Logged 12:02 Visit Coding STANDARD RES Billing Provider: JOLIE AGUILAR MD Date of Service if different f: Sep 20, 2025 Common Visit Codes: 77202-OBBFXEE INP/OBS CARE (HIGH) Secondary Visit Codes: [id number] CARE PLAN 30 MINUTES ANA M ARNOLD RESIDENT Sep 20, 2025 12:12
[2025-09-20] MEDS ORDERED: NITROGLYCERIN 0.4 MG SL TAB SL PRN (12:15)
--- NOTE | 2025-09-20 12:16 | ECG ---
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
[2025-09-20 13:08] LABS: Alanine Aminotransferase 16 U/L (7-40); Albumin 3.9 g/dL (3.2-4.8); Alkaline Phosphatase 109 U/L (46-116); Total Protein 6.7 g/dL (5.7-8.2)
[2025-09-20 13:11] LABS: Bilirubin, Direct < 0.1 mg/dL (<0.3); Bilirubin, Total 0.2 mg/dL (0.2-1.0)
[2025-09-20 13:22] LABS: COVID19 ANTIGEN SOFIA FIA NEGATIVE (NEGATIVE)
[2025-09-20] MEDS: MORPHINE SULFATE INJ 2 MG/ml SYRG IV PRN (14:54)
[2025-09-20] MEDS ORDERED: DEXTROSE (50%) 50ML SYRG IV PRN (15:15)
[2025-09-20] MEDS ORDERED: IPRATROPIUM BROM 0.5 MG/2.5ML INH SOL NEB PRN (15:15)
[2025-09-20] MEDS ORDERED: ALBUTEROL SULF 2.5 MG/0.5ML(0.5%) NEB SOLN NEB PRN (15:15)
--- NOTE | 2025-09-20 15:31 | DVH ---
Bilateral lower extremity venous duplex Clinical History: rule out DVT Comparison: US BILAT LOWER DVT on DOS: 07/10/25, US BILAT LOWER DVT on DOS: 07/02/25, US RT LOWER DVT on DOS: 02/18/25, RIGHT US VENOUS EXTREMITY UNILAT on DOS: 12/10/22 Technique: Duplex Doppler evaluation of the deep venous systems of both lower extremities from the common femoral veins to the popliteal veins including color Doppler and spectral/pulsed waveform analysis was performed. Findings: RIGHT SIDE: The common femoral vein demonstrates appropriate compressibility and waveform variability. There is compressibility/patency of the great saphenous vein at the proximal thigh. The femoral vein demonstrates appropriate compressibility and waveform variability. The deep femoral vein demonstrates appropriate compressibility and waveform variability. The popliteal vein demonstrates appropriate compressibility and waveform variability. There is normal compressibility at the tibioperoneal trunk. LEFT SIDE: The common femoral vein demonstrates appropriate compressibility and waveform variability. There is compressibility/patency of the great saphenous vein at the proximal thigh. The femoral vein demonstrates appropriate compressibility and waveform variability. The deep femoral vein demonstrates appropriate compressibility and waveform variability. The popliteal vein demonstrates appropriate compressibility and waveform variability. There is normal compressibility at the tibioperoneal trunk. Impression: No right or left femoropopliteal venous thrombosis.
[2025-09-20] MEDS: AZITHROMYCIN 500MG/250ML 250 ML IV ONE (16:07)
[2025-09-20] MEDS: PANTOPRAZOLE 40 MG TAB PO ONE (16:08)
[2025-09-20] MEDS: ENOXAPARIN SOD 40 MG/0.4 ML SYRINGE SC ONE (16:15)
[2025-09-20] MEDS: SUCRALFATE 1 GM/10 ML ORAL SUSP PO SCH (17:00)
[2025-09-20] MEDS: InsuLIN REG 1unit/0.01ml Soln (100units/ml) SC SCH (18:00)
[2025-09-20] MEDS: ACCU-CHEK COMFORT CURVE STRIP VI SCH (18:00)
[2025-09-20] MEDS: ACETAMINOPHEN 325 MG TAB PO PRN (21:48)
[2025-09-20] MEDS: HYDROcodone-ACET 5/325MG TAB PO PRN (22:47)
[2025-09-20] MEDS: GABAPENTIN 300 MG CAP PO ONE (22:47)
[2025-09-21] VITALS (12 sets, daily range): BP systolic 117–128; BP diastolic 79–88; PULSE 51–80; RESP 16–19; TEMP 97.5–98.7; O2SAT 94–100
[2025-09-21] MEDS: PANTOPRAZOLE 40 MG TAB PO SCH (06:00)
[2025-09-21 06:30] LABS: Hemoglobin 10.6 g/dL (12.2-16.2); Mean Corpuscular Hemoglobin 25.8 pg (28.0-32.0)
[2025-09-21 06:31] LABS: Hematocrit 32.5 % (36.0-46.0); Mean Corpuscular Volume 79.2 fL (80.0-100.0); Nucleated Red Blood Cells % 0.1 %
[2025-09-21 06:42] LABS: Alanine Aminotransferase 11 U/L (7-40); Albumin 3.2 g/dL (3.2-4.8); Alkaline Phosphatase 84 U/L (46-116); Anion Gap 7 (5-15); BUN/Creatinine Ratio 18.2 (10.0-20.0); Blood Urea Nitrogen 18 mg/dL (9-23); Glucose 87 mg/dL (74-106); Potassium 4.0 mmol/L (3.5-5.1); Sodium 145 mmol/L (136-145)
[2025-09-21 06:44] LABS: Bilirubin, Total 0.2 mg/dL (0.2-1.0); Calcium 8.3 mg/dL (8.7-10.4); Carbon Dioxide 31 mmol/L (20-31); Chloride 107 mmol/L (98-107); Total Protein 5.6 g/dL (5.7-8.2)
--- NOTE | 2025-09-21 09:13 | DVHPN2 ---
Subjective 65-year-old female with a history of COPD on home O2 she came with 1 day of cough and shortness of breaths and the fever and chills She has productive cough of yellow sputum Changes from previous H/P or p: Changes Objective Vitals Vital Signs Date Time Temp Pulse Resp B/P (MAP) Pulse Ox O2 Delivery O2 Flow Rate FiO2 09/21/25 08:37 98.1 57 16 125/81 (96) 100 98.1 09/20/25 20:36 2.0 28 09/20/25 20:26 Nasal Cannula Intake/Output Intake and Output 09/21/25 07:00 Intake Total 1400 ml Balance 1400 ml Intake Oral 400 ml IV Total 1000 ml # Voids 2 General Appearance: Alert, Oriented X3, Cooperative, mild distress Lungs: Other (Bilateral rhonchi at the bases) Cardiovascular: Regular rate, Normal S1, Normal S2, No murmurs Abdomen: Normal bowel sounds, Soft, No tenderness Extremities: Other (1+ edema bilaterally in the lower extremities more on the right side) Medications Current Medications Medications Dose Ordered Sig/Calista Route Start Time Stop Time Status Last Admin Dose Admin Morphine Sulfate 2 mg Q30M PRN IV 09/20/25 12:15 09/20/25 14:54 2 MG Nitroglycerin 0.4 mg Q5MINP PRN SL 09/20/25 12:15 Azithromycin 250 ml @ 125 mls/hr DAILY IV 09/21/25 10:00 Albuterol 2.5 mg Q4HPRN PRN NEB 09/20/25 15:15 Ipratropium [place] 0.5 mg Q4HPRN PRN NEB 09/20/25 15:15 Pantoprazole Sodium 40 mg DAILY@0600 PO 09/21/25 06:00 09/21/25 06:00 40 MG Sucralfate 1 gm QID@0600,1130,1700,2200 PO 09/20/25 17:00 09/21/25 05:59 1 GM Diagnostic Test (Pha) 1 strip Q6HR 09/20/25 18:00 09/21/25 06:00 1 STRIP Insulin Human Regular Q6HR SC 09/20/25 18:00 Dextrose 50 ml UD PRN IV 09/20/25 15:15 Enoxaparin Sodium 40 mg DAILY SC 09/21/25 10:00 Acetaminophen/ Hydrocodone Bitart 1 tab Q6HPRN PRN PO 09/20/25 22:30 09/21/25 05:59 1 TAB Bupropion HCl 150 mg BID@07,19 PO 09/21/25 07:00 09/21/25 06:00 150 MG Gabapentin 300 mg BID PO 09/21/25 10:00 Laboratory Results Laboratory Tests 09/21/25 05:04 Chemistry Test 09/20/25 09:51 09/21/25 05:04 Albumin 3.9 g/dL (3.2-4.8) 3.2 g/dL (3.2-4.8) Calcium Level 8.8 mg/dL (8.7-10.4) 8.3 mg/dL (8.7-10.4) L Total Protein 6.7 g/dL (5.7-8.2) 5.6 g/dL (5.7-8.2) L Coagulation Test 09/20/25 12:37 D-Dimer, Quantitative 0.58 mg/L FEU (0.0-0.49) H Cardiac Markers Test 09/20/25 13:40 B-Type Natriuretic Peptide 17.72 pg/mL (0-100) LFT Test 09/20/25 09:51 09/21/25 05:04 Alanine Aminotransferase (ALT) 16 U/L (7-40) 11 U/L (7-40) Alkaline Phosphatase 109 U/L (46-116) 84 U/L (46-116) Aspartate Amino Transferase (AST) 34 U/L (13-40) 25 U/L (13-40) Direct Bilirubin < 0.1 mg/dL (<0.3) Total Bilirubin 0.2 mg/dL (0.2-1.0) 0.2 mg/dL (0.2-1.0) HgA1c, TSH Test 09/20/25 09:51 Hemoglobin A1c 5.4 % A1C (<5.7) Assessment/Plan Assessment/Plan Community-acquired pneumonia, Gram-positive versus Gram-negative or mixed mary COPD exacerbation Acute hypoxic respiratory failure Chronic respiratory failure on home O2 COPD History of DVT Status post IVC filter Chronic lymphedema in the right leg Type 2 diabetes History of TIA Peptic ulcer disease Anemia Bipolar disorder History of rheumatoid arthritis Plan Oxygen as needed IV antibiotics Rocephin and Zithromax IV steroids Med neb treatments as needed Monitor closely Full code Plan discussed with: Patient Date of Service: Sep 21, 2025 Billing Provider: PEREZ VILLAFANA MD Common Visit Codes: NOT BILLABLE PEREZ VILLAFANA MD Sep 21, 2025 09:13
[2025-09-21] MEDS: AZITHROMYCIN 500MG/250ML 250 ML IV SCH (10:04)
[2025-09-21] MEDS: GABAPENTIN 300 MG CAP PO SCH (10:04)
[2025-09-21] MEDS: ENOXAPARIN SOD 40 MG/0.4 ML SYRINGE SC SCH (10:04)
[2025-09-21] MEDS: methylPREDNISolone SOD SUCC 40 MG/ML VL IV SCH (10:58)
--- NOTE | 2025-09-21 11:42 | DVH ---
PROCEDURE: CT CHEST WITHOUT CONTRAST Reason for study/Clinical History: hemoptysis Comparison Study: XY CHEST XRAY 1 VIEW on DOS: 09/20/25, XY CHEST PORTABLE on DOS: 07/09/25, XY CHEST XRAY 1 VIEW on DOS: 07/02/25, XY CHEST PORTABLE on DOS: 05/09/25, XR CHEST 1 VIEW on DOS: 07/16/24 TECHNIQUE: Multidetector CT of the chest was performed from the lung apices to the upper abdomen without the use of intravenous contract. Axial, coronal and sagittal multiplanar reformats were performed. Radiation Dose Information: CT Dose: CTDI volume is 6.82 mGy. Dose-length product is 2.76 mGy*cm The dose indicators for CT are the volume Computed Tomography (CT) Dose Index (CTDIvol) and the Dose Length Product (DLP), and are measured in units of mGy and mGy-cm, respectively. These indicators are not patient dose, but values generated from the CT scanner acquisition factors. The report includes radiation exposure data for exposures received during this examination. FINDINGS: Lower neck: Unremarkable. Lungs: Right lower lobe subsegmental atelectasis or developing airspace consolidation. Heart/Vascular Structures: Cardiomegaly. Lymph Nodes: No adenopathy Pleura: No pleural effusion or significant pneumothorax. Musculoskeletal: No acute osseous abnormality. Degenerative changes of the spine. Soft tissues: Normal. Upper abdomen: Limited portions of the upper abdomen are unremarkable. IMPRESSION: Right lower lobe subsegmental atelectasis or developing airspace consolidation. Radiation optimization: All CT scans at this facility use at least one of these dose optimization techniques: automated exposure control mA and/or kV adjustment per patient size (includes targeted exams where dose is matched to clinical indication) or iterative reconstruction.
[2025-09-21] MEDS: ACCU-CHEK COMFORT CURVE STRIP VI SCH (12:08)
[2025-09-21] MEDS: InsuLIN REG 1unit/0.01ml Soln (100units/ml) SC SCH (12:08)
[2025-09-22] VITALS (12 sets, daily range): BP systolic 114–148; BP diastolic 71–88; PULSE 56–90; RESP 16–20; TEMP 97.5–98.5; O2SAT 94–100
[2025-09-22 06:34] LABS: Hematocrit 35.4 % (36.0-46.0); Hemoglobin 11.4 g/dL (12.2-16.2); Mean Corpuscular Hemoglobin 26.0 pg (28.0-32.0); Mean Corpuscular Volume 80.4 fL (80.0-100.0); Nucleated Red Blood Cells % 0.0 %
[2025-09-22 07:01] LABS: Potassium 4.5 mmol/L (3.5-5.1); Sodium 140 mmol/L (136-145)
[2025-09-22 07:02] LABS: Anion Gap 7 (5-15); Calcium 8.9 mg/dL (8.7-10.4); Carbon Dioxide 25 mmol/L (20-31)
[2025-09-22 07:05] LABS: Chloride 108 mmol/L (98-107)
[2025-09-22 07:07] LABS: BUN/Creatinine Ratio 8.9 (10.0-20.0); Glucose 103 mg/dL (74-106)
[2025-09-22 07:08] LABS: Magnesium 2.1 mg/dL (1.6-2.6)
[2025-09-22 07:09] LABS: Blood Urea Nitrogen 9 mg/dL (9-23)
--- NOTE | 2025-09-22 15:07 | DVHPN2 ---
Subjective Better Changes from previous H/P or p: Changes Objective Vitals Vital Signs Date Time Temp Pulse Resp B/P (MAP) Pulse Ox O2 Delivery O2 Flow Rate FiO2 09/22/25 13:00 98.2 56 19 148/87 (107) 100 98.2 09/22/25 09:53 Room Air* 0 21 Intake/Output Intake and Output 09/22/25 07:00 Intake Total 1290 ml Output Total 750 ml Balance 540 ml Intake Oral 1040 ml IV Total 250 ml Output Urine Total 750 ml # Voids 3 General Appearance: Alert, Oriented X3, Cooperative, mild distress Lungs: Other (Bilateral rhonchi at the bases) Cardiovascular: Regular rate, Normal S1, Normal S2, No murmurs Abdomen: Normal bowel sounds, Soft, No tenderness Extremities: Other (1+ edema bilaterally in the lower extremities more on the right side) Medications Current Medications Medications Dose Ordered Sig/Calista Route Start Time Stop Time Status Last Admin Dose Admin Morphine Sulfate 2 mg Q30M PRN IV 09/20/25 12:15 09/20/25 14:54 2 MG Nitroglycerin 0.4 mg Q5MINP PRN SL 09/20/25 12:15 Azithromycin 250 ml @ 125 mls/hr DAILY IV 09/21/25 10:00 09/22/25 11:16 125 MLS/HR Albuterol 2.5 mg Q4HPRN PRN NEB 09/20/25 15:15 Ipratropium [place] 0.5 mg Q4HPRN PRN NEB 09/20/25 15:15 Pantoprazole Sodium 40 mg DAILY@0600 PO 09/21/25 06:00 09/22/25 05:50 40 MG Sucralfate 1 gm QID@0600,1130,1700,2200 PO 09/20/25 17:00 09/22/25 12:59 1 GM Dextrose 50 ml UD PRN IV 09/20/25 15:15 Enoxaparin Sodium 40 mg DAILY SC 09/21/25 10:00 09/22/25 10:56 40 MG Acetaminophen/ Hydrocodone Bitart 1 tab Q6HPRN PRN PO 09/20/25 22:30 09/22/25 10:55 1 TAB Bupropion HCl 150 mg BID@07,19 PO 09/21/25 07:00 09/22/25 06:06 150 MG Gabapentin 300 mg BID PO 09/21/25 10:00 09/22/25 10:55 300 MG Diagnostic Test (Pha) 1 strip ACHS 09/21/25 11:30 09/22/25 12:57 1 STRIP Insulin Human Regular ACHS SC 09/21/25 11:30 Methylprednisolone Sodium Succinate 40 mg BID IV 09/21/25 10:00 09/22/25 10:55 40 MG Laboratory Results Laboratory Tests 09/22/25 05:33 Chemistry Test 09/22/25 05:33 Calcium Level 8.9 mg/dL (8.7-10.4) Magnesium Level 2.1 mg/dL (1.6-2.6) Microbiology Microbiology Date/Time Source Procedure Growth Status 09/20/25 12:23 Nose MRSA Screen - Final Complete 09/20/25 11:15 Blood Blood Culture - Preliminary NO GROWTH AFTER 48 HOURS OF INCUBATION. Resulted Assessment/Plan Assessment/Plan Community-acquired pneumonia, Gram-positive versus Gram-negative or mixed mary COPD exacerbation Acute hypoxic respiratory failure Chronic respiratory failure on home O2 COPD History of DVT Status post IVC filter Chronic lymphedema in the right leg Type 2 diabetes History of TIA Peptic ulcer disease Anemia Bipolar disorder History of rheumatoid arthritis Plan Oxygen as needed IV antibiotics Rocephin and Zithromax IV steroids Med neb treatments as needed Monitor closely Full code 09/22/25: Zithromax Med Nebs O2 Steroids Monitor Plan discussed with: Patient Date of Service: Sep 22, 2025 Billing Provider: PEREZ VILLAFANA MD Common Visit Codes: NOT BILLABLE PEREZ VILLAFANA MD Sep 22, 2025 15:07
[2025-09-23 01:00] VITALS: BP 136/86; PULSE 60; RESP 16; TEMP 97.9; O2SAT 100
[2025-09-23 05:00] VITALS: BP 146/102; PULSE 62; RESP 20; TEMP 97.6; O2SAT 100
[2025-09-23 07:03] VITALS: PULSE 53
[2025-09-23 08:28] VITALS: BP 151/90; PULSE 53; RESP 18; TEMP 96.4; O2SAT 100
[2025-09-23 09:35] VITALS: O2SAT 98
[2025-09-23] MEDS ORDERED: DOXY1CAP57 PO (09:40)
[2025-09-23] MEDS ORDERED: METH4PAK PO (09:40)
--- NOTE | 2025-09-23 09:43 | DVHDS2 ---
Discharge Summary Date of Admission Sep 20, 2025 at 12:03 Date of Discharge: Sep 23, 2025 Labs/Diagnostic Data: Laboratory Results Test 09/23/25 06:02 09/22/25 05:33 09/21/25 05:04 09/20/25 15:52 POC Glucose 118 mg/dl (70-106) White Blood Count 5.7 10^3/uL (4.4-10.8) Red Blood Count 4.41 10^6/uL (4.0-5.20) Hemoglobin 11.4 g/dL (12.2-16.2) Hematocrit 35.4 % (36.0-46.0) Mean Corpuscular Volume 80.4 fL (80.0-100.0) Mean Corpuscular Hemoglobin 26.0 pg (28.0-32.0) Mean Corpuscular Hemoglobin Concent 32.3 g/dL (32.0-36.0) Red Cell Distribution Width 16.8 % (11.8-14.3) Platelet Count 284 10^3/uL (140-450) Mean Platelet Volume 7.6 fL (6.9-10.8) Neutrophils (%) (Auto) 85.6 % (37.0-80.0) Lymphocytes (%) (Auto) 11.1 % (10.0-50.0) Monocytes (%) (Auto) 3.2 % (0.0-12.0) Eosinophils (%) (Auto) 0.0 % (0.0-7.0) Basophils (%) (Auto) 0.1 % (0.0-2.0) Neutrophils # (Auto) 4.9 10 ^3/uL (1.6-8.6) Lymphocytes # (Auto) 0.6 10 ^3/uL (0.4-5.4) Monocytes # (Auto) 0.2 10 ^3/uL (0-1.3) Eosinophils # (Auto) 0 10 ^3/uL (0-0.8) Basophils # (Auto) 0 10 ^3/uL (0-0.2) Nucleated Red Blood Cells 0.0 % Sodium Level 140 mmol/L (136-145) Potassium Level 4.5 mmol/L (3.5-5.1) Chloride Level 108 mmol/L (98-107) Carbon Dioxide Level 25 mmol/L (20-31) Anion Gap 7 (5-15) Blood Urea Nitrogen 9 mg/dL (9-23) Creatinine 1.01 mg/dL (0.550-1.02) Glomerular Filtration Rate Calc 62 mL/min (>90) BUN/Creatinine Ratio 8.9 (10.0-20.0) Serum Glucose 103 mg/dL (74-106) Calcium Level 8.9 mg/dL (8.7-10.4) Magnesium Level 2.1 mg/dL (1.6-2.6) Total Bilirubin 0.2 mg/dL (0.2-1.0) Aspartate Amino Transferase (AST) 25 U/L (13-40) Alanine Aminotransferase (ALT) 11 U/L (7-40) Alkaline Phosphatase 84 U/L (46-116) Total Protein 5.6 g/dL (5.7-8.2) Albumin 3.2 g/dL (3.2-4.8) Troponin I High Sensitivity 5 ng/L (</=34) Test 09/20/25 13:40 09/20/25 12:37 09/20/25 12:23 09/20/25 11:15 B-Type Natriuretic Peptide 17.72 pg/mL (0-100) D-Dimer, Quantitative 0.58 mg/L FEU (0.0-0.49) Influenza Type A Antigen Negative (Negative) Influenza Type B Antigen Negative (Negative) SARS-CoV-2 Antigen (Rapid) Negative (NEGATIVE) Lactic Acid Level 1.2 mmol/L (0.4-2.0) Test 09/20/25 09:51 Hemoglobin A1c 5.4 % A1C (<5.7) Direct Bilirubin < 0.1 mg/dL (<0.3) Other Laboratory Tests 09/22/25 05:33 Brief Hx & Hospital Course: Final diagnoses: Community-acquired pneumonia, Gram-positive versus Gram-negative or mixed mary COPD exacerbation Acute hypoxic respiratory failure Chronic respiratory failure on home O2 COPD History of DVT Status post IVC filter Chronic lymphedema in the right leg Type 2 diabetes History of TIA Peptic ulcer disease Anemia Bipolar disorder History of rheumatoid arthritis She was treated with IV antibiotics and IV steroids and oxygen med neb treatments She did well overnight She is asymptomatic now Lungs are clear to auscultation She is back to her baseline She already has home O2 at home Discharged home on Medrol Dosepak and doxycycline for 7 days and resume other home medications Follow up with her primary care physician as soon as possible Condition at Discharge: Stable Final Diagnosis/Problems List Community-acquired pneumonia, Gram-positive versus Gram-negative or mixed mary COPD exacerbation Acute hypoxic respiratory failure Chronic respiratory failure on home O2 COPD History of DVT Status post IVC filter Chronic lymphedema in the right leg Type 2 diabetes History of TIA Peptic ulcer disease Anemia Bipolar disorder History of rheumatoid arthritis Discharge Disposition: Home SNF Discharge Will this Physician continue t: No Discharge Instruct/Medications Diet: Consistent carbohydrate, Cardiac 2g Na,low cholest Activity: No Restrictions, As Tolerated Follow Up/Referral: PCP as soon as possible Medications: Doxycycline for 7 days Medrol Dosepak Resume the home meds Scheduled Cephalexin (Keflex Capsule), 250 MG PO TID Docusate Sodium (Colace), 1 CAP PO BID Doxycycline Monohydrate (Doxycycline Monohydrate), 1 CAP PO BID Lisinopril (Lisinopril), 10 MG PO BS Methylprednisolone (Medrol Dosepak), 4 MG PO UD Methylprednisolone (Medrol Dosepak), 4 MG PO UD Pantoprazole Sodium Sesquihydr (Protonix), 40 MG PO BID Sucralfate (Carafate Susp), 10 ML PO QID Scheduled PRN Acetaminophen (Apap), 500 MG PO Q4HP PRN Albuterol Sulfate (Ventolin Mdi), 90 MCG IN Q4HP PRN Albuterol Sulfate (Albuterol Sulfate Hfa), 108 MCG IN TIDP PRN Dicyclomine Hcl (Bentyl Capsule), 2 CAP PO Q6HP PRN Ferrous Sulfate (Ferrous Sulfate), 325 MG PO DAILY PRN Hydrocodone-Acetaminophen (Hydrocodone Bitartrate/AC 5-325 mg), 1 TAB PO Q6HP PRN Lactulose (Lactulose), 20 GM PO DAILY PRN Magnesium Citrate (Magnesium Citrate), 2-4 TAB OR HS PRN Ondansetron Odt 4MG Tab (Zofran Po), 4 MG PO Q8HP PRN Discharge Statement: "Patient was advised to return to the ER or call 911 if any headaches, dizziness, shortness of breath, chest pain, abdominal pain, bleeding, fevers, or worsening of medical condition. Patient was counseled about treatment plan, medications, possible side effects, patientverbalized understanding. All questions were answered to the best of my ability. This discharge took greater then 30 minutes in planning, reviewing documentation, counseling the patient, and discussing with other team members." ASSESSMENT ASSESSMENT Assessment Community-acquired pneumonia, Gram-positive versus Gram-negative or mixed mary COPD exacerbation Acute hypoxic respiratory failure Chronic respiratory failure on home O2 COPD History of DVT Status post IVC filter Chronic lymphedema in the right leg Type 2 diabetes History of TIA Peptic ulcer disease Anemia Bipolar disorder History of rheumatoid arthritis Date of Service: Sep 23, 2025 Billing Provider: PEREZ VILLAFANA MD Common Visit Codes: NOT BILLABLE PEREZ VILLAFANA MD Sep 23, 2025 09:43
[2025-09-23 10:10] VITALS: O2SAT 100
== END 2025-09-23 11:57 | disposition home or self-care (01) | DRG 177 ==
LOC: ER 09:14 → OVERFLOW 12:03 → TELE-CENTR 17:44
PROVIDERS: ADMIT Internal Medicine Geriatric Medicine; ATTEND Internal Medicine Geriatric Medicine
DX: J15.69 Pneumonia due to other Gram-negative bacteria (principal); J96.21 Acute and chronic respiratory failure with hypoxia; N17.9 Acute kidney failure, unspecified; J44.0 Chronic obstructive pulmonary disease with (acute) lower respiratory infection; E11.9 Type 2 diabetes mellitus without complications; D64.9 Anemia, unspecified; J15.9 Unspecified bacterial pneumonia; K27.9 Peptic ulcer, site unspecified, unspecified as acute or chronic, without hemorrhage or perforation; F31.9 Bipolar disorder, unspecified; I10 Essential (primary) hypertension; M06.9 Rheumatoid arthritis, unspecified; Z95.828 Presence of other vascular implants and grafts; J44.1 Chronic obstructive pulmonary disease with (acute) exacerbation; F17.210 Nicotine dependence, cigarettes, uncomplicated; I89.0 Lymphedema, not elsewhere classified; Z86.718 Personal history of other venous thrombosis and embolism; Z90.49 Acquired absence of other specified parts of digestive tract; Z98.891 History of uterine scar from previous surgery; Z86.73 Personal history of transient ischemic attack (TIA), and cerebral infarction without residual deficits; Z99.81 Dependence on supplemental oxygen
CPT/HCPCS: 36415; 71045; 71250; 80048; 80053; 80076; 82962; 83036; 83605; 83735; 83880; 84484; 85025; 85379; 87040; 87081; 87426; 87804; 93005; 93970; 94640; G0378; J1815